=== PATIENT | male | born 1950 | race Caucasian/White ===

== ENCOUNTER 2023-04-03 15:05 | Inpatient (IN) | payer MEDICARE, MEDICAID, SELFPAY ==
--- NOTE | ~2023-04-03 | US_ITS ---
EXAMINATION: US RETROPERITONEAL COMPLETE (RENAL) CLINICAL INFORMATION: Hematuria. COMPARISON: Previous CT of the abdomen and pelvis 04/03/2023 TECHNIQUE: Real-time imaging of the kidneys and bladder. FINDINGS: RIGHT KIDNEY: 12 x 6.7 x 6.3 cm (SAG x AP x TRV). The kidney is normal in size, contour, and echogenicity. Renal cortical thickness is normal. No calculi or focal parenchymal lesions. No hydronephrosis. LEFT KIDNEY: 12 x 6 x 4.8 cm (SAG x AP x TRV). The kidney is normal in size, contour, and echogenicity. Renal cortical thickness is normal. No calculi or focal parenchymal lesions. No hydronephrosis. BLADDER: Not optimally distended. There is a Nava catheter. Bilateral ureteral jets are not demonstrated. Prevoid bladder volume is 87 mL. US/US retroperitoneal comp IMPRESSION: Normal renal ultrasound. Bladder not optimally distended and not well evaluated.
--- NOTE | ~2023-04-03 | XR_ITS ---
EXAMINATION: XR CHEST CLINICAL INFORMATION: Tachypnea, question CHF COMPARISON: 10/02/2019 TECHNIQUE: Frontal view of the chest was obtained. FINDINGS: Left-sided AICD lead tip overlies the right ventricle. Lung volumes are symmetric. No focal consolidation is seen. No evidence of pneumothorax or significant pleural effusion. Subtle interstitial edema is difficult to exclude. Cardiac size is within normal limits. Calcification is present at the aortic arch. No acute osseous findings are seen. XR/XR chest 1V IMPRESSION: Possible subtle interstitial edema. No focal consolidation.
--- NOTE | ~2023-04-03 | CT_ITS ---
EXAMINATION: CT ABDOMEN AND PELVIS WITH CONTRAST CLINICAL INFORMATION: Epigastric discomfort COMPARISON: CT scan abdomen pelvis 09/30/2019 TECHNIQUE: Multidetector volumetric images were obtained from the superior aspect of the liver through the pubic symphysis following administration 85 mL of Omnipaque 350 intravenous contrast. Sagittal and coronal reformatted images were obtained on the technologist's workstation. Oral contrast: No This CT examination was performed using dose optimization techniques as appropriate, variously including the following: *Automated exposure control *Adjustment of mA and/or kV according to patient size (this includes techniques or standardized protocols for targeted exams where dose is matched to indication/reason for exam; i.e. extremities or head) *Use of iterative reconstruction technique DLP: 893 mGy-cm FINDINGS: LUNG BASES: The visualized lung bases are unremarkable. Pacemaker leads in the heart LIVER, GALLBLADDER, AND BILIARY TREE: Pneumobilia. No focal liver lesion. Status post cholecystectomy PANCREAS: Pancreas is atrophic. No inflammation or mass. SPLEEN: Unremarkable. ADRENAL GLANDS: Unremarkable. KIDNEYS AND URETERS: Fullness of the right and left renal collecting systems and mild hydroureter of the distal ureters bilaterally. No renal or ureteral calculus. Prostate/BLADDER: TURP Defect in the prostate. No bladder mass or calculus. No inflammation the bladder wall. GASTROINTESTINAL TRACT: There are a few scattered diverticula of the colon. There is no diverticulitis. There is no bowel wall thickening /edema. There is no bowel obstruction. There is a moderate to large volume of stool in the colon. The appendix is normal . The small bowel loops are unremarkable. The stomach is normal. There is no hiatal hernia. ABDOMINAL WALL: No significant hernia is appreciated. Focal thickening with calcifications in the anterior abdominal wall bilaterally consistent with injection granulomas. LYMPH NODES: Normal. VASCULAR: Vascular calcifications throughout the abdomen and the pelvis. There is no aneurysm. OSSEOUS STRUCTURES: Degenerative spondylosis of the spine. CT/CT abdomen pelvis w IV con IMPRESSION: 1. No acute abnormality the abdomen or pelvis 2. Mild fullness of the right and left renal collecting systems and mild hydroureter of the distal ureters bilaterally. No renal or ureteral calculus. 3. Status post cholecystectomy. Pneumobilia. Fleischner guidelines were followed.
--- NOTE | ~2023-04-03 | XR_ITS ---
EXAMINATION: XR CHEST CLINICAL INFORMATION: Shortness of breath COMPARISON: Previous chest x-ray most recent 04/04/2023 TECHNIQUE: Frontal view of the chest was obtained. FINDINGS: The cardiac and mediastinal contours are stable. Left subclavian single chamber pacemaker/AICD device appears unchanged. The lungs are clear. No pleural effusion or pneumothorax. Degenerative changes of the spine and right shoulder. XR/XR chest 1V IMPRESSION: No evidence for acute disease in the chest.
[2023-04-03 15:17] VITALS: BP 130/47; PULSE 72; O2SAT 92
[2023-04-03 15:24] VITALS: BP 112/42; PULSE 68; RESP 18; TEMP 36.7; O2SAT 97
--- NOTE | 2023-04-03 15:51 | ECG_ITS ---
Test Reason : HTN Blood Pressure : / mmHG Vent. Rate : 071 BPM Atrial Rate : 071 BPM P-R Int : 234 ms QRS Dur : 092 ms QT Int : 406 ms P-R-T Axes : -19 -18 178 degrees QTc Int : 441 ms Sinus rhythm with 1st degree A-V block Septal infarct (cited on or before 30-SEP-2019) ST & T wave abnormality, consider inferolateral ischemia Abnormal ECG When compared with ECG of 01-OCT-2019 12:29, Premature atrial complexes are no longer Present T wave inversion less evident in Inferior leads T wave inversion now evident in Lateral leads Referred By: Zuri Falk Electronically Signed By:Eris Agustin
[2023-04-03 16:07] LABS: MANUAL DIFF FLAG NO
[2023-04-03 16:13] LABS: Basophils Percent Auto 0.4 % (0-2); Eosinophils Absolute Auto 0.5 X10*3/uL (0.0-0.4); Eosinophils Percent Auto 5.3 % (0-4); Hematocrit 29.9 % (42.0-52.0); Hemoglobin 9.3 g/dl (14.0-18.0); Imm Gran Abs Auto 0.04 X10*3/uL (0.00-0.03); Imm Gran Pct Auto 0.4 % (0.0-0.4); Lymphocytes Absolute Auto 1.3 X10*3/uL (1.2-4.9); Lymphocytes Percent Auto 13.6 % (20-40); Mean Corpuscular HGB Conc 31.1 g/dl (31.0-36.0); Mean Corpuscular Hemoglobin 23.4 pg (27.0-33.0); Mean Corpuscular Volume 75.3 fL (80.0-98.0); Monocytes Absolute Auto 0.6 X10*3/uL (0.1-1.2); Monocytes Percent Auto 6.5 % (2-11); Neutrophils Absolute Auto 6.9 x10*3/uL (2.0-8.3); Neutrophils Percent Auto 73.8 % (45-73); Platelet Count 267 X10*3/uL (160-400); Red Blood Count 3.97 X10*6/uL (4.60-5.80); Red Cell Distribution Width 19.1 % (11.0-16.0); White Blood Count 9.4 X10*3/uL (4.8-10.8)
[2023-04-03 16:20] LABS: Appearance Urine Clear; Color Urine Yellow; Glucose Urine UA Negative (Negative); Leukocyte Esterase Urine Trace (Negative); Nitrite Urine Negative (Negative); UMIC TRIGGER UACC YES; Urine Blood Small (1+) (Negative); Urine Ketones Negative (Negative); Urine Protein Negative (Neg-Trace)
[2023-04-03 16:21] LABS: INTERNATIONAL NORM RATIO 1.3 (0.9-1.1); Prothrombin Time 15.4 SEC (10.0-13.1)
[2023-04-03 16:25] LABS: Bacteria Urine None Seen (None Seen); Hyaline Casts Urine 0-2 /LPF (0-2); Squamous Epithelial Cell Urine 0-2 /HPF (0-2); WBC Urine 0-5 /HPF (0-5)
[2023-04-03 16:27] LABS: Alanine Aminotransferase 11 U/L (0-40); Alkaline Phosphatase 149 U/L (39-117); Anion Gap 13 (12-20); Aspartate Amino Transferase 12 U/L (5-37); Bilirubin Total 0.2 mg/dL (0.0-1.0); Blood Urea Nitrogen 35 mg/dL (9-16); Calcium 8.9 mg/dL (8.4-10.2); Carbon Dioxide 21 mmol/L (22-29); Chloride 111 mmol/L (96-108); Estimated Glomerular Filt Rate 57; Glucose Random 226 mg/dL (60-115); Potassium 4.4 mmol/L (3.3-5.1); Sodium 141 mmol/L (135-145); Total Protein 6.2 g/dL (6.5-8.0)
--- NOTE | 2023-04-03 16:36 | ED_ITS ---
HPI - GI Bleed General Chief complaint: Recheck/Abnormal Lab/Rx Stated complaint: Black tarry stool.diarrhea x3 days coming from SNF Time Seen by Provider: 04/03/23 15:51 Source: patient Mode of arrival: EMS History of Present Illness HPI Narrative: 72-year-old male who arrives via EMS from a long-term care facility with melena diarrhea since Sunday denies any associated abdominal discomfort with this and states that it has happened previously. He denies being on any iron supplementation or blood thinners. Related Data Allergies Allergy/AdvReac Type Severity Reaction Status Date / Time coconut [COCONUT] Allergy Unknown HIVES Unverified 06/03/20 14:35 pineapple [PINEAPPLE] Allergy Unknown HIVES Unverified 06/03/20 14:35 Review of Systems Review of Systems: Pertinent positives and negatives as stated in HPI PMFSH Past Medical History Source: nursing notes reviewed Social History Social History Advance Directives: No Advance Directives Information Provided: No Physical Exam Vital Signs: Vital Signs: Last Vital Signs Temp 99.8 F 04/03/23 17:58 Pulse 73 04/03/23 17:58 Resp 15 04/03/23 17:58 BP 136/40 L 04/03/23 17:58 Pulse Ox 97 04/03/23 17:58 O2 Del Method Room Air 04/03/23 17:58 BMI result Body Mass Index 0.5 VITAL SIGNS: Reviewed. GENERAL: Chronically ill, in no acute distress. HEAD: Normocephalic/atraumatic EYES: PERRLA, EOMI EARS: Ext canals without abnormality NOSE: Nares patent bilateral OROPHARYNX: no oral lesions noted, posterior pharynx clear NECK: Supple, no adenopathy LUNGS: Normal breath sounds. No adventitious sounds or accessory muscle use. SpO2<97> CARDIOVASCULAR: Regular rate and rhythm without noted murmurs, no JVD or lower extremity edema. ABDOMEN: Soft, non-tender, non-distended with bowel sounds. NILAY: No hemorrhoids noted, black stool very soft MUSCULOSKELETAL: No tenderness, deformities, or effusions noted on gross inspection. EXTREMITIES: No cyanosis, clubbing or edema. SKIN: Inspection of the skin reveals no rashes NEUROLOGIC: Alert and oriented x 4. Strength and sensation to light touch were grossly intact x 4. Medications Administered Discontinued Medications Generic Name Dose Route Start Last Admin Trade Name Akbar PRN Reason Stop Dose Admin Iohexol 85 ml 04/03/23 19:10 04/03/23 19:11 Iohexol 350 Mg/Ml 100 Ml Infus..Btl IV 04/03/23 19:11 85 ml ONCE ONE Administration Pantoprazole Sodium 80 mg 04/03/23 16:42 04/03/23 18:32 Pantoprazole Sodium 40 Mg/10 Ml Vial IVPUSH 04/03/23 16:43 80 mg ONCE ONE Administration Medical Decision Making Medical Decision Making MDM Narrative: 72-year-old male with history and clinical presentation, DDX: Painless GI bleed, upper/lower/ischemic. I reviewed all investigations and in conjunction with my clinical exam and history the melena is most likely associated with an upper GI bleed as there is a corresponding mild increase in the BUN, hemoglobin is noted to be quite a bit lower than compared of lab work (but this is from 2019) patient is however hemodynamically stable, guaiac was positive and stool was melanotic. Otherwise hematologic indices a without leukocytosis or thrombocytopenia there is a chr onic left shift. Chemistry indices are grossly within normal limits without electrolyte abnormality and no significant TIFFANIE patient is noted to have elevated glucose without evidence of DKA or HHS and remaining alkaline phosphatase/protein/albumin are chronically stable. Interventions: Protonix 80 mg 191: I discussed case with inpatient hospitalist who accepts admission. Differential Diagnosis Differential Diagnoses: The differential diagnosis associated with the presentation includes Please see the discussion above Admission/Observation Consideration of admission/observation: Escalation of care including admission/observation considered Please see the discussion above Consult Healthcare Provider Management of the patient was discussed with: Hospitalist Please see the discussion above Lab Data MDM Lab Attestation statement: I reviewed the patient's lab results. Please see the discussion above 04/03/23 16:03 04/03/23 16:03 Labs: Lab Results 04/03/23 04/03/23 04/03/23 Range/Units 14:15 14:15 16:03 WBC 9.4 (4.8-10.8) X10*3/uL RBC 3.97 L (4.60-5.80) X10*6/uL Hgb 9.3 L (14.0-18.0) g/dl Hct 29.9 L (42.0-52.0) % MCV 75.3 L (80.0-98.0) fL MCH 23.4 L (27.0-33.0) pg MCHC 31.1 (31.0-36.0) g/dl RDW 19.1 H (11.0-16.0) % Plt Count 267 (160-400) X10*3/uL MPV 10.0 (9.4-12.4) fL Immature Gran % (Auto) 0.4 (0.0-0.4) % Neut % (Auto) 73.8 H (45-73) % Lymph % (Auto) 13.6 L (20-40) % [place] % (Auto) 6.5 (2-11) % Eos % (Auto) 5.3 H (0-4) % Baso % (Auto) 0.4 (0-2) % Lymph # (Auto) 1.3 (1.2-4.9) X10*3/uL [place] # (Auto) 0.6 (0.1-1.2) X10*3/uL Eos # (Auto) 0.5 H (0.0-0.4) X10*3/uL Baso # (Auto) 0.0 (0.0-0.2) X10*3/uL Abs Immat Gran (auto) 0.04 H (0.00-0.03) X10*3/uL Absolute Neuts (auto) 6.9 (2.0-8.3) x10*3/uL Absolute Nucleated RBC 0.000 (0.0-0.012) X10*3/uL Nucleated RBC % (auto) 0.0 (0.0-0.2) /100WBC PT (10.0-13.1) SEC INR (0.9-1.1) Sodium (135-145) mmol/L Potassium (3.3-5.1) mmol/L Chloride (96-108) mmol/L Carbon Dioxide (22-29) mmol/L Anion Gap (12-20) BUN (9-16) mg/dL Creatinine (0.5-1.4) mg/dL Estim Creat Clear Calc Estimated GFR Random Glucose (60-115) mg/dL Calcium (8.4-10.2) mg/dL Total Bilirubin (0.0-1.0) mg/dL AST (5-37) U/L ALT (0-40) U/L Alkaline Phosphatase (39-117) U/L Total Protein (6.5-8.0) g/dL Albumin (3.5-5.0) g/dL Urine Color Yellow Urine Appearance Clear Urine pH 6.0 (5.0-9.0) Ur Specific [place] 1.010 (1.005-1.025) Urine Protein Negative (Neg-Trace) mg/dL Urine Glucose (UA) Negative (Negative) mg/dL Urine Ketones Negative (Negative) mg/dL Urine Blood Small (1+) H (Negative) Urine Nitrite Negative (Negative) Ur Leukocyte Esterase Trace H (Negative) Urine RBC 6-10 H (0-2) /HPF Urine WBC 0-5 (0-5) /HPF Ur Squamous Epith Cells 0-2 (0-2) /HPF Urine Bacteria None Seen (None Seen) Hyaline Casts 0-2 (0-2) /LPF Urine Creatinine 45.00 mg/dL Urine Microalbumin < 5.0 mg/L Microalb/Creat Ratio TNP Stool Occult Blood (NEGATIVE) Blood Type Antibody Screen 04/03/23 04/03/23 04/03/23 Range/Units 16:03 16:03 17:40 WBC (4.8-10.8) X10*3/uL RBC (4.60-5.80) X10*6/uL Hgb (14.0-18.0) g/dl Hct (42.0-52.0) % MCV (80.0-98.0) fL MCH (27.0-33.0) pg MCHC (31.0-36.0) g/dl RDW (11.0-16.0) % Plt Count (160-400) X10*3/uL MPV (9.4-12.4) fL Immature Gran % (Auto) (0.0-0.4) % Neut % (Auto) (45-73) % Lymph % (Auto) (20-40) % [place] % (Auto) (2-11) % Eos % (Auto) (0-4) % Baso % (Auto) (0-2) % Lymph # (Auto) (1.2-4.9) X10*3/uL [place] # (Auto) (0.1-1.2) X10*3/uL Eos # (Auto) (0.0-0.4) X10*3/uL Baso # (Auto) (0.0-0.2) X10*3/uL Abs Immat Gran (auto) (0.00-0.03) X10*3/uL Absolute Neuts (auto) (2.0-8.3) x10*3/uL Absolute Nucleated RBC (0.0-0.012) X10*3/uL Nucleated RBC % (auto) (0.0-0.2) /100WBC PT 15.4 H (10.0-13.1) SEC INR 1.3 H (0.9-1.1) Sodium 141 (135-145) mmol/L Potassium 4.4 (3.3-5.1) mmol/L Chloride 111 H (96-108) mmol/L Carbon Dioxide 21 L (22-29) mmol/L Anion Gap 13 (12-20) BUN 35 H (9-16) mg/dL Creatinine 1.25 (0.5-1.4) mg/dL Estim Creat Clear Calc 83.0 Estimated GFR 57 Random Glucose 226 H (60-115) mg/dL Calcium 8.9 (8.4-10.2) mg/dL Total Bilirubin 0.2 (0.0-1.0) mg/dL AST 12 (5-37) U/L ALT 11 (0-40) U/L Alkaline Phosphatase 149 H (39-117) U/L Total Protein 6.2 L (6.5-8.0) g/dL Albumin 3.0 L (3.5-5.0) g/dL Urine Color Urine Appearance Urine pH (5.0-9.0) Ur Specific [place] (1.005-1.025) Urine Protein (Neg-Trace) mg/dL Urine Glucose (UA) (Negative) mg/dL Urine Ketones (Negative) mg/dL Urine Blood (Negative) Urine Nitrite (Negative) Ur Leukocyte Esterase (Negative) Urine RBC (0-2) /HPF Urine WBC (0-5) /HPF Ur Squamous Epith Cells (0-2) /HPF Urine Bacteria (None Seen) Hyaline Casts (0-2) /LPF Urine Creatinine mg/dL Urine Microalbumin mg/L Microalb/Creat Ratio Stool Occult Blood (NEGATIVE) Blood Type AB Positive Antibody Screen NEGATIVE 04/03/23 Range/Units 17:41 WBC (4.8-10.8) X10*3/uL RBC (4.60-5.80) X10*6/uL Hgb (14.0-18.0) g/dl Hct (42.0-52.0) % MCV (80.0-98.0) fL MCH (27.0-33.0) pg MCHC (31.0-36.0) g/dl RDW (11.0-16.0) % Plt Count (160-400) X10*3/uL MPV (9.4-12.4) fL Immature Gran % (Auto) (0.0-0.4) % Neut % (Auto) (45-73) % Lymph % (Auto) (20-40) % [place] % (Auto) (2-11) % Eos % (Auto) (0-4) % Baso % (Auto) (0-2) % Lymph # (Auto) (1.2-4.9) X10*3/uL [place] # (Auto) (0.1-1.2) X10*3/uL Eos # (Auto) (0.0-0.4) X10*3/uL Baso # (Auto) (0.0-0.2) X10*3/uL Abs Immat Gran (auto) (0.00-0.03) X10*3/uL Absolute Neuts (auto) (2.0-8.3) x10*3/uL Absolute Nucleated RBC (0.0-0.012) X10*3/uL Nucleated RBC % (auto) (0.0-0.2) /100WBC PT (10.0-13.1) SEC INR (0.9-1.1) Sodium (135-145) mmol/L Potassium (3.3-5.1) mmol/L Chloride (96-108) mmol/L Carbon Dioxide (22-29) mmol/L Anion Gap (12-20) BUN (9-16) mg/dL Creatinine (0.5-1.4) mg/dL Estim Creat Clear Calc Estimated GFR Random Glucose (60-115) mg/dL Calcium (8.4-10.2) mg/dL Total Bilirubin (0.0-1.0) mg/dL AST (5-37) U/L ALT (0-40) U/L Alkaline Phosphatase (39-117) U/L Total Protein (6.5-8.0) g/dL Albumin (3.5-5.0) g/dL Urine Color Urine Appearance Urine pH (5.0-9.0) Ur Specific [place] (1.005-1.025) Urine Protein (Neg-Trace) mg/dL Urine Glucose (UA) (Negative) mg/dL Urine Ketones (Negative) mg/dL Urine Blood (Negative) Urine Nitrite (Negative) Ur Leukocyte Esterase (Negative) Urine RBC (0-2) /HPF Urine WBC (0-5) /HPF Ur Squamous Epith Cells (0-2) /HPF Urine Bacteria (None Seen) Hyaline Casts (0-2) /LPF Urine Creatinine mg/dL Urine Microalbumin mg/L Microalb/Creat Ratio Stool Occult Blood POSITIVE (NEGATIVE) Blood Type Antibody Screen Independent Interpretation I performed an independent interpretation of an: EKG Interpretation: Sinus rhythm, first-degree AV block at baseline, HR-71, no STEMI but there are ST abnormalities in the lateral leads at baseline, CA-234, QRS/QTC are within normal limits. Chronic Conditions Patient?s care impacted by: Hypertension Critical Care Time Critical Care Time Critical Care Time: Yes Total Critical Care Time: 30 Attestation: I personally attest to this time spent taking care of the patient. Discharge Plan Discharge Patient Disposition: Admitted As Inpatient
[2023-04-03 17:18] LABS: Microalbumin Urine < 5.0 mg/L
[2023-04-03 17:58] VITALS: BP 136/40; PULSE 73; RESP 15; TEMP 37.7; O2SAT 97
[2023-04-03 18:07] LABS: OBS Int Ctl Valid YES; OBS1 POSITIVE (NEGATIVE)
[2023-04-03] MEDS: Pantoprazole Sodium 40 MG/10 ML VIAL 80 MG IVPUSH (18:32)
[2023-04-03] MEDS: iohexoL 350 MG/ML 100 ML INFUS..BTL 85 ML IV (19:11)
--- NOTE | 2023-04-03 19:31 | PM.IMHP ---
History of Present Illness Date of Service: 04/03/23 Chief Complaint: GI bleed This is a 72-year-old male with pertinent history of congestive heart failure unspecified ejection fraction, paroxysmal atrial fibrillation on Eliquis, mood disorder, essential hypertension, mixed hyperlipidemia, coronary artery disease, insulin-dependent diabetes mellitus presents to the emergency department for evaluation of GI bleed. Patient states he has been having painless diarrhea mixed with blood that started 1 day prior to presentation. Patient states he had 4-5 episodes since yesterday. Admits similar episodes in the past but does not know the etiology. He is on antiplatelet agent and anticoagulants. Patient denies any fever, chills, abdominal pain while defaceation. No chest discomfort, palpitations, changes in urinary habits. Admits associated nausea, headache. In the emergency department, patient was found to be anemic and stool occult blood was positive Review of Systems Constitutional: Constitutional: Reports fatigue Cardiovascular: Cardiovascular: Reports no additional cardiovascular complaints Respiratory: Respiratory: Reports no additional respiratory complaints Gastrointestinal: Gastrointestinal: Reports melena and Reports nausea Genitourinary: Genitourinary: Reports no additional male genitourinary complaints Endocrine: Endocrine: Reports fatigue [facility] Medical History Chronic anticoagulation Congestive heart failure Coronary artery disease Essential hypertension Insulin dependent type 2 diabetes mellitus Mood disorder Paroxysmal atrial fibrillation Pertinent family history: Not significant due to age Social History Advance Directives: No Advance Directives Information Provided: No Meds Allergies Allergy/AdvReac Type Severity Reaction Status Date / Time coconut [COCONUT] Allergy Unknown HIVES Unverified 06/03/20 14:35 pineapple [PINEAPPLE] Allergy Unknown HIVES Unverified 06/03/20 14:35 Active Medications: Current Medications Pharmacy Consult (Consult Rx Perform Med Rec) 1 each MISCELLANE ONCE PRN PRN Reason: Consult order Physical Exam Vital Signs and Narrative: Vital Signs: Last Vital Signs Temp 99.8 F 04/03/23 17:58 Pulse 73 04/03/23 17:58 Resp 15 04/03/23 17:58 BP 136/40 L 04/03/23 17:58 Pulse Ox 97 04/03/23 17:58 O2 Del Method Room Air 04/03/23 17:58 BMI result Body Mass Index 0.5 Middle-aged male lying in bed in no distress Neck supple Regular rate and rhythm, S1-S2 heard Regular breath sounds bilaterally, no wheezing or crackles appreciated Abdomen soft nontender, no guarding, no rigidity Patient is awake, alert and oriented to self, place and person ; no focal motor deficit Results Labs 04/03/23 16:03 04/03/23 16:03 Labs: Laboratory Results - last 24 hr 04/03/23 04/03/23 04/03/23 14:15 14:15 16:03 MCV 75.3 L MCH 23.4 L MCHC 31.1 RDW 19.1 H Plt Count 267 MPV 10.0 Immature Gran % (Auto) 0.4 Neut % (Auto) 73.8 H Lymph % (Auto) 13.6 L [place] % (Auto) 6.5 Eos % (Auto) 5.3 H Baso % (Auto) 0.4 Lymph # (Auto) 1.3 [place] # (Auto) 0.6 Eos # (Auto) 0.5 H Baso # (Auto) 0.0 Abs Immat Gran (auto) 0.04 H Absolute Neuts (auto) 6.9 Absolute Nucleated RBC 0.000 Nucleated RBC % (auto) 0.0 PT INR Anion Gap Estim Creat Clear Calc Estimated GFR Random Glucose Calcium Total Bilirubin AST ALT Alkaline Phosphatase Total Protein Albumin Urine Color Yellow Urine Appearance Clear Urine pH 6.0 Ur Specific [place] 1.010 Urine Protein Negative Urine Glucose (UA) Negative Urine Ketones Negative Urine Blood Small (1+) H Urine Nitrite Negative Ur Leukocyte Esterase Trace H Urine RBC 6-10 H Urine WBC 0-5 Ur Squamous Epith Cells 0-2 Urine Bacteria None Seen Hyaline Casts 0-2 Urine Creatinine 45.00 Urine Microalbumin < 5.0 Microalb/Creat Ratio TNP Stool Occult Blood Blood Type Antibody Screen 04/03/23 04/03/23 04/03/23 16:03 16:03 17:40 MCV MCH MCHC RDW Plt Count MPV Immature Gran % (Auto) Neut % (Auto) Lymph % (Auto) [place] % (Auto) Eos % (Auto) Baso % (Auto) Lymph # (Auto) [place] # (Auto) Eos # (Auto) Baso # (Auto) Abs Immat Gran (auto) Absolute Neuts (auto) Absolute Nucleated RBC Nucleated RBC % (auto) PT 15.4 H INR 1.3 H Anion Gap 13 Estim Creat Clear Calc 83.0 Estimated GFR 57 Random Glucose 226 H Calcium 8.9 Total Bilirubin 0.2 AST 12 ALT 11 Alkaline Phosphatase 149 H Total Protein 6.2 L Albumin 3.0 L Urine Color Urine Appearance Urine pH Ur Specific [place] Urine Protein Urine Glucose (UA) Urine Ketones Urine Blood Urine Nitrite Ur Leukocyte Esterase Urine RBC Urine WBC Ur Squamous Epith Cells Urine Bacteria Hyaline Casts Urine Creatinine Urine Microalbumin Microalb/Creat Ratio Stool Occult Blood Blood Type AB Positive Antibody Screen NEGATIVE 04/03/23 17:41 MCV MCH MCHC RDW Plt Count MPV Immature Gran % (Auto) Neut % (Auto) Lymph % (Auto) [place] % (Auto) Eos % (Auto) Baso % (Auto) Lymph # (Auto) [place] # (Auto) Eos # (Auto) Baso # (Auto) Abs Immat Gran (auto) Absolute Neuts (auto) Absolute Nucleated RBC Nucleated RBC % (auto) PT INR Anion Gap Estim Creat Clear Calc Estimated GFR Random Glucose Calcium Total Bilirubin AST ALT Alkaline Phosphatase Total Protein Albumin Urine Color Urine Appearance Urine pH Ur Specific [place] Urine Protein Urine Glucose (UA) Urine Ketones Urine Blood Urine Nitrite Ur Leukocyte Esterase Urine RBC Urine WBC Ur Squamous Epith Cells Urine Bacteria Hyaline Casts Urine Creatinine Urine Microalbumin Microalb/Creat Ratio Stool Occult Blood POSITIVE Blood Type Antibody Screen Assessment and Plan (1) GI bleed: Status: Acute Plan This is a 72-year-old male with pertinent history of congestive heart failure unspecified ejection fraction, paroxysmal atrial fibrillation on Eliquis, mood disorder, essential hypertension, mixed hyperlipidemia, coronary artery disease, insulin-dependent diabetes mellitus presents to the emergency department for evaluation of GI bleed. #. Acute blood loss anemia due to acute GI bleed. Will admit patient with admeasurer. Will keep patient NPO and consulted Gastroenterology, appreciate assistance. Initiated IV Protonix. Hold Eliquis and antiplatelet agent. Close monitor H&H. #. Congestive heart failure, unspecified ejection fraction. Euvolemic at the time of admission. Hold diuretics in the setting of above #. Essential hypertension. Hold antihypertensives in the setting of GI bleed #. Paroxysmal atrial fibrillation on Eliquis. Rate controlled and patient in sinus rhythm during admission. Hold Eliquis as above #. Insulin-dependent diabetes mellitus with hyperglycemia. Initiating Accu-Cheks with sliding scale insulin every 6 hours while patient is NPO #. Mood disorder. Resume home mood stabilizers once no longer NPO Med rec pending DVT prophylaxis: Mechanical DNR. Discussed with patient at bedside NPO Admit as inpatient and will require two night minimum hospital stay for close monitoring of hemodynamic status in the setting of acute GI bleed. Specialist consult pending Time Spent With Patient Time: Total time managing care of this patient today ____ minutes. Quality Stroke Does the patient have a stroke diagnosis?: No VTE Prior VTE?: No VTE Risk Level:: Medical - moderate - high VTE Device Contraindication: N/A - Device Ordered VTE Drug Contraindication: Treatment Not Indicated
--- NOTE | 2023-04-03 19:42 | PC.NURSE ---
no apparent distress requesting food/ta[place]- pt NPO and made aware
--- NOTE | 2023-04-03 20:55 | PHA.MEDREC ---
Pharmacy Consult ? Medication Reconciliation Pharmacy has completed the medication reconciliation.List obtained from [facility]
[2023-04-03 21:03] LABS: Glucose, Whole Blood 150 mg/dL (60-115)
[2023-04-03 21:37] VITALS: BP 124/51; PULSE 72; RESP 13; TEMP 37.2; O2SAT 96
--- NOTE | 2023-04-03 23:57 | PC.NURSE ---
report given to Ileana RN, pt to yao Lin
[2023-04-04] VITALS (11 sets, daily range): BP systolic 140–184; BP diastolic 54–81; PULSE 71–92; RESP 17–28; TEMP 36.1–37.3; O2SAT 90–97; BMI 34.0
[2023-04-04] MEDS: ondansetron HCL 4 MG/2 ML VIAL IVPUSH (01:16)
[2023-04-04] MEDS: 0.9 % Sodium Chloride Flush 3 ML SYRINGE IVFLUSH ×3 (01:18→16:31)
--- NOTE | 2023-04-04 03:30 | PC.NURSE ---
Pt noted to have sizable blood clot in stool. Pt also c/o nausea and having episodes of dry heaving - zofran administered with little to no effectiveness. Tachypneic to 28. BP 184/75 T 98.3F O2 94% on RA. Wet lung sounds with audible crackles. Labs and CXR ordered. Type and screen obtained. 1 unit PRBC ordered. Continued to have large liquid bloody stools. Blood consent obtained by . 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 Care ongoing.
[2023-04-04 03:31] LABS: Glucose, Whole Blood 126 mg/dL (60-115)
[2023-04-04 04:14] LABS: INTERNATIONAL NORM RATIO 1.3 (0.9-1.1); Prothrombin Time 14.6 SEC (10.0-13.1)
[2023-04-04 04:23] LABS: Hematocrit 27.9 % (42.0-52.0); Hemoglobin 8.5 g/dl (14.0-18.0)
--- NOTE | 2023-04-04 05:33 | ECG_ITS ---
Test Reason : CP Blood Pressure : / mmHG Vent. Rate : 077 BPM Atrial Rate : 077 BPM P-R Int : 246 ms QRS Dur : 096 ms QT Int : 400 ms P-R-T Axes : 103 -16 210 degrees QTc Int : 452 ms Sinus rhythm with 1st degree A-V block Left ventricular hypertrophy with repolarization abnormality ( R in aVL ) Abnormal ECG When compared with ECG of 03-APR-2023 16:03, Criteria for Septal infarct are no longer Present Referred By: Josefina Fernando Electronically Signed By:Eris Agustin
[2023-04-04] MEDS: Pantoprazole Sodium 40 MG/10 ML VIAL IVPUSH ×2 (05:51→16:31)
[2023-04-04 07:05] LABS: MANUAL DIFF FLAG NO
[2023-04-04 07:10] LABS: Basophils Percent Auto 0.5 % (0-2); Eosinophils Absolute Auto 0.4 X10*3/uL (0.0-0.4); Eosinophils Percent Auto 5.2 % (0-4); Hematocrit 31.2 % (42.0-52.0); Hemoglobin 9.4 g/dl (14.0-18.0); Imm Gran Abs Auto 0.03 X10*3/uL (0.00-0.03); Imm Gran Pct Auto 0.4 % (0.0-0.4); Lymphocytes Absolute Auto 1.5 X10*3/uL (1.2-4.9); Lymphocytes Percent Auto 19.4 % (20-40); Mean Corpuscular HGB Conc 30.1 g/dl (31.0-36.0); Mean Corpuscular Hemoglobin 23.6 pg (27.0-33.0); Mean Corpuscular Volume 78.4 fL (80.0-98.0); Monocytes Absolute Auto 0.6 X10*3/uL (0.1-1.2); Monocytes Percent Auto 7.4 % (2-11); Neutrophils Absolute Auto 5.1 x10*3/uL (2.0-8.3); Neutrophils Percent Auto 67.1 % (45-73); Platelet Count 258 X10*3/uL (160-400); Red Blood Count 3.98 X10*6/uL (4.60-5.80); Red Cell Distribution Width 20.3 % (11.0-16.0); White Blood Count 7.6 X10*3/uL (4.8-10.8)
[2023-04-04 07:22] LABS: Anion Gap 12 (12-20); Blood Urea Nitrogen 27 mg/dL (9-16); Calcium 8.6 mg/dL (8.4-10.2); Carbon Dioxide 23 mmol/L (22-29); Chloride 115 mmol/L (96-108); Creatinine Clr Calc Pharmacy 83.1; Estimated Glomerular Filt Rate > 60; Glucose Random 132 mg/dL (60-115); Potassium 3.7 mmol/L (3.3-5.1); Sodium 146 mmol/L (135-145)
[2023-04-04 07:32] LABS: Troponin-I High Sensitivity 25.6 ng/L (<3.5-35.0)
--- NOTE | 2023-04-04 08:44 | HO.PM.IMPN ---
Subjective Subjective Date of Service: 04/04/23 Interval History: melena Physical Exam Vital Signs: Vital Signs: Last Vital Signs Temp 97 F 04/04/23 07:17 Pulse 76 04/04/23 07:17 Resp 20 04/04/23 07:17 BP 142/81 H 04/04/23 07:17 Pulse Ox 97 04/04/23 07:17 O2 Del Method Room Air 04/04/23 07:17 BMI result Body Mass Index 34.0 pallor, ill appearing, alert oriented times 3 Objective Data Active Medications Acetaminophen (Acetaminophen 325 Mg Tablet) 650 mg PO Q6H PRN PRN Reason: Pain, Mild (Pain Scale 1-3) Acetaminophen (Acetaminophen Supp 650 Mg Supp.Rect) 650 mg RI Q6H PRN PRN Reason: Pain, Mild (Pain Scale 1-3) Dextrose (Dextrose 50 % 25 Gm/50 Ml Syringe) 25 gm IVPUSH Q15M PRN; Protocol PRN Reason: per Hypoglycemia Standing Ord. Glucose (Glucose Gel 15 Gm Gel..Gram.) 15 gm PO Q15M PRN; Protocol PRN Reason: per Hypoglycemia Standing Ord. Insulin Human Lispro (Insulin Lispro 100 Unit/Ml 3 Ml Vial) 0 unit SUBCUT Q6H [facility]; Protocol Last Admin: 04/04/23 05:52 Dose: Not Given Documented By: MARCO Non-Admin Reason: No Insulin Coverage Melatonin (Melatonin 3 Mg Tablet) 6 mg PO BEDTIME PRN PRN Reason: Insomnia Ondansetron HCl (Ondansetron Hcl 4 Mg/2 Ml Vial) 4 mg IVPUSH Q8H PRN PRN Reason: Nausea and Vomiting Last Admin: 04/04/23 01:16 Dose: 4 mg Documented By: MARCO Pantoprazole Sodium (Pantoprazole Sodium 40 Mg/10 Ml Vial) 40 mg IVPUSH BID@0630,1630 [facility] Last Admin: 04/04/23 05:51 Dose: 40 mg Documented By: MARCO Pharmacy Consult (Consult Rx Perform Med Rec) 1 each MISCELLANE ONCE PRN PRN Reason: Consult order Sodium Chloride (0.9 % Sodium Chloride Flush 3 Ml Syringe) 3 ml IVFLUSH QSHIFT [facility] Last Admin: 04/04/23 08:00 Dose: 3 ml Documented By: FOGARTB Labs 04/04/23 06:53 04/04/23 06:53 Labs: Laboratory Results - last 24 hr 04/03/23 04/03/23 04/03/23 14:15 14:15 16:03 MCV 75.3 L MCH 23.4 L MCHC 31.1 RDW 19.1 H Plt Count 267 MPV 10.0 Immature Gran % (Auto) 0.4 Neut % (Auto) 73.8 H Lymph % (Auto) 13.6 L [place] % (Auto) 6.5 Eos % (Auto) 5.3 H Baso % (Auto) 0.4 Lymph # (Auto) 1.3 [place] # (Auto) 0.6 Eos # (Auto) 0.5 H Baso # (Auto) 0.0 Abs Immat Gran (auto) 0.04 H Absolute Neuts (auto) 6.9 Absolute Nucleated RBC 0.000 Nucleated RBC % (auto) 0.0 PT INR Anion Gap Estim Creat Clear Calc Estimated GFR POC Glucose Random Glucose Calcium Total Bilirubin AST ALT Alkaline Phosphatase Troponin I High Sens Total Protein Albumin Urine Color Yellow Urine Appearance Clear Urine pH 6.0 Ur Specific [place] 1.010 Urine Protein Negative Urine Glucose (UA) Negative Urine Ketones Negative Urine Blood Small (1+) H Urine Nitrite Negative Ur Leukocyte Esterase Trace H Urine RBC 6-10 H Urine WBC 0-5 Ur Squamous Epith Cells 0-2 Urine Bacteria None Seen Hyaline Casts 0-2 Urine Creatinine 45.00 Urine Microalbumin < 5.0 Microalb/Creat Ratio TNP Stool Occult Blood Blood Type Antibody Screen Crossmatch 04/03/23 04/03/23 04/03/23 16:03 16:03 17:40 MCV MCH MCHC RDW Plt Count MPV Immature Gran % (Auto) Neut % (Auto) Lymph % (Auto) [place] % (Auto) Eos % (Auto) Baso % (Auto) Lymph # (Auto) [place] # (Auto) Eos # (Auto) Baso # (Auto) Abs Immat Gran (auto) Absolute Neuts (auto) Absolute Nucleated RBC Nucleated RBC % (auto) PT 15.4 H INR 1.3 H Anion Gap 13 Estim Creat Clear Calc 83.0 Estimated GFR 57 POC Glucose Random Glucose 226 H Calcium 8.9 Total Bilirubin 0.2 AST 12 ALT 11 Alkaline Phosphatase 149 H Troponin I High Sens Total Protein 6.2 L Albumin 3.0 L Urine Color Urine Appearance Urine pH Ur Specific [place] Urine Protein Urine Glucose (UA) Urine Ketones Urine Blood Urine Nitrite Ur Leukocyte Esterase Urine RBC Urine WBC Ur Squamous Epith Cells Urine Bacteria Hyaline Casts Urine Creatinine Urine Microalbumin Microalb/Creat Ratio Stool Occult Blood Blood Type AB Positive Antibody Screen NEGATIVE Crossmatch See Detail 04/03/23 04/03/23 04/04/23 17:41 21:00 02:55 MCV MCH MCHC RDW Plt Count MPV Immature Gran % (Auto) Neut % (Auto) Lymph % (Auto) [place] % (Auto) Eos % (Auto) Baso % (Auto) Lymph # (Auto) [place] # (Auto) Eos # (Auto) Baso # (Auto) Abs Immat Gran (auto) Absolute Neuts (auto) Absolute Nucleated RBC Nucleated RBC % (auto) PT INR Anion Gap Estim Creat Clear Calc Estimated GFR POC Glucose 150 H 126 H Random Glucose Calcium Total Bilirubin AST ALT Alkaline Phosphatase Troponin I High Sens Total Protein Albumin Urine Color Urine Appearance Urine pH Ur Specific [place] Urine Protein Urine Glucose (UA) Urine Ketones Urine Blood Urine Nitrite Ur Leukocyte Esterase Urine RBC Urine WBC Ur Squamous Epith Cells Urine Bacteria Hyaline Casts Urine Creatinine Urine Microalbumin Microalb/Creat Ratio Stool Occult Blood POSITIVE Blood Type Antibody Screen Crossmatch 04/04/23 04/04/23 04/04/23 03:56 06:53 06:53 MCV 78.4 L MCH 23.6 L MCHC 30.1 L RDW 20.3 H Plt Count 258 MPV 10.0 Immature Gran % (Auto) 0.4 Neut % (Auto) 67.1 Lymph % (Auto) 19.4 L [place] % (Auto) 7.4 Eos % (Auto) 5.2 H Baso % (Auto) 0.5 Lymph # (Auto) 1.5 [place] # (Auto) 0.6 Eos # (Auto) 0.4 Baso # (Auto) 0.0 Abs Immat Gran (auto) 0.03 Absolute Neuts (auto) 5.1 Absolute Nucleated RBC 0.000 Nucleated RBC % (auto) 0.0 PT 14.6 H INR 1.3 H Anion Gap 12 Estim Creat Clear Calc 83.1 Estimated GFR > 60 POC Glucose Random Glucose 132 H Calcium 8.6 Total Bilirubin AST ALT Alkaline Phosphatase Troponin I High Sens Total Protein Albumin Urine Color Urine Appearance Urine pH Ur Specific [place] Urine Protein Urine Glucose (UA) Urine Ketones Urine Blood Urine Nitrite Ur Leukocyte Esterase Urine RBC Urine WBC Ur Squamous Epith Cells Urine Bacteria Hyaline Casts Urine Creatinine Urine Microalbumin Microalb/Creat Ratio Stool Occult Blood Blood Type Antibody Screen Crossmatch 04/04/23 06:53 MCV MCH MCHC RDW Plt Count MPV Immature Gran % (Auto) Neut % (Auto) Lymph % (Auto) [place] % (Auto) Eos % (Auto) Baso % (Auto) Lymph # (Auto) [place] # (Auto) Eos # (Auto) Baso # (Auto) Abs Immat Gran (auto) Absolute Neuts (auto) Absolute Nucleated RBC Nucleated RBC % (auto) PT INR Anion Gap Estim Creat Clear Calc Estimated GFR POC Glucose Random Glucose Calcium Total Bilirubin AST ALT Alkaline Phosphatase Troponin I High Sens 25.6 Total Protein Albumin Urine Color Urine Appearance Urine pH Ur Specific [place] Urine Protein Urine Glucose (UA) Urine Ketones Urine Blood Urine Nitrite Ur Leukocyte Esterase Urine RBC Urine WBC Ur Squamous Epith Cells Urine Bacteria Hyaline Casts Urine Creatinine Urine Microalbumin Microalb/Creat Ratio Stool Occult Blood Blood Type Antibody Screen Crossmatch Assessment and Plan (1) Chronic systolic CHF (congestive heart failure): Status: Acute Plan 72M PMH chronic systolic chf, CAD, paroxysmal afib on eliquis, mood disorder, htn, hld, DM presented with melena acute blood loss anemia due to melena iv ppi, monitor cbc, gi eval holding plavix, eliquis chronic systolic chf metoprolol, monitor for volume overload, will hold diuretics while having melena htn metoprolol paroxysmal afib metoprolol holding eliquis cad holding eliquis, plavix DM insulin dvt prophylaxis - mechanical due to gi bleed DNR reason for continued hospitalization:active bleed Time Spent With Patient Time: Total time managing care of this patient today ____ minutes. Quality Stroke Does the patient have a stroke diagnosis?: No VTE Prior VTE?: No VTE Risk Level:: Medical - moderate - high VTE Device Contraindication: N/A - Device Ordered VTE Drug Contraindication: Treatment Not Indicated
--- NOTE | 2023-04-04 08:49 | PM.GICN ---
History of Present Illness Data of Consult Service Date: 04/04/23 Requesting physician: Edward Fernando Primary Care Provider: Remi Corbett MD [facility] Reason for consult: GI Bleeding 72 YM with congestive heart failure unspecified ejection fraction, paroxysmal atrial fibrillation on Eliquis, mood disorder, status post CVA (rt MCA)essential hypertension, mixed hyperlipidemia, coronary artery disease, insulin-dependent diabetes mellitus brought to [facility] via EMS from a long-term care facility?on 04/03/23 for evaluation of GI bleed.? Patient complained of having painless diarrhea mixed with blood starting the day before. He noted 4-5 episodes over a 24 hr period.? Pt gives a history of intermittent rectal bleeding which he attributes to hemorrhoids.? He complains of chronic diarrhea with fecal incontinence since he had a cholecystectomy several years ago. He is on antiplatelet agent and anticoagulants and admits to taking Ibuprofen 2-3 times a week.? Patient complained of nausea and BECK and denied fever, chills, abdominal pain, chest discomfort, palpitations, changes in urinary habits.? Patient admits to taking Prilosec for GERD and heartburn or dysphagia. He admits to wt loss from 360 to 222 lbs over a year (after moving to a LTCF and changing his diet) Patient has COPD and gives a hx of 17 heart attacks since 1991 status post stents and on anti-coagulation > 10 yrs Pt admites to smoking x 60 yrs and quitted 5-10 yrs ago. He drinks ETOH occasionally, was a heavy smoker of Marijuana and stopped 1 year ago. Pt is and retired, has 2 children and a 28 yr old GD. Patient reports his brother of colon cancer in his mid to late 70's. His of colon cancer at age 64 yrs. In the emergency department, patient was found to be anemic and stool occult blood was positive Pt was started on IV PPI and admitted for further management. Nursing staff reports 2-3 black BMs today. Labs showed H&H of 9.3 & 29.9 in the ER, Repeat H&H was 8.5 & 27.9 this morning. Pt was transfused 1 U PRBC today and repeat H&H was 9.4 & 31.2 04/03/[address] SCAN SHOWED: 1. No acute abnormality the abdomen or pelvis 2. Mild fullness of the right and left renal collecting systems and mild hydroureter of the distal ureters bilaterally. No renal or ureteral calculus. 3. Status post cholecystectomy. Pneumobilia. ? PAST GI HISTORY BY REVIEW OF MEDICAL RECORDS: Pt reports past hx of bleeding ulcers. Pt reports having multiple colonoscopies in the past - [place] colon [place] 5-6 [place] [facility] [place] Review of Systems Constitutional: Constitutional: Reports fatigue Cardiovascular: Cardiovascular: Reports no additional cardiovascular complaints Respiratory: Respiratory: Reports no additional respiratory complaints and Reports other (has COPD) Gastrointestinal: Gastrointestinal: Reports melena and Reports nausea Genitourinary: Genitourinary: Reports no additional male genitourinary complaints Endocrine: Endocrine: Reports fatigue PMF Past Medical History Medical History Chronic systolic CHF (congestive heart failure) Insulin dependent type 2 diabetes mellitus Mood disorder Essential hypertension Congestive heart failure Paroxysmal atrial fibrillation Coronary artery disease Social History Social History Household Members: Other Housing: Assisted Living Facility Housing Other:: [facility] per pt report xlast 3 years Patient Tobacco Use Status: Former Tobacco user Quit Date: 2018 Tobacco use type: Cigarette Years Smoked: 53 Second Hand Smoke Exposure: No Substance Use Type: Marijuana Advance Directives Date on File: 04/11/23 service: No Meds Allergies Allergy/AdvReac Type Severity Reaction Status Date / Time coconut [COCONUT] Allergy Unknown HIVES Verified 06/08/23 05:50 pineapple [PINEAPPLE] Allergy Unknown HIVES Verified 06/08/23 05:50 Active Medications: Current Medications Acetaminophen (Acetaminophen 325 Mg Tablet) 650 mg PO Q6H PRN PRN Reason: Pain, Mild (Pain Scale 1-3) Acetaminophen (Acetaminophen Supp 650 Mg Supp.Rect) 650 mg MA Q6H PRN PRN Reason: Pain, Mild (Pain Scale 1-3) Dextrose (Dextrose 50 % 25 Gm/50 Ml Syringe) 25 gm IVPUSH Q15M PRN; Protocol PRN Reason: per Hypoglycemia Standing Ord. Glucose (Glucose Gel 15 Gm Gel..Gram.) 15 gm PO Q15M PRN; Protocol PRN Reason: per Hypoglycemia Standing Ord. Insulin Human Lispro (Insulin Lispro 100 Unit/Ml 3 Ml Vial) 0 unit SUBCUT Q6H [facility]; Protocol Last Admin: 04/04/23 05:52 Dose: Not Given Melatonin (Melatonin 3 Mg Tablet) 6 mg PO BEDTIME PRN PRN Reason: Insomnia Metoprolol Tartrate (Metoprolol Tartrate 25 Mg Tablet) 75 mg PO BID [facility]; Protocol Ondansetron HCl (Ondansetron Hcl 4 Mg/2 Ml Vial) 4 mg IVPUSH Q8H PRN PRN Reason: Nausea and Vomiting Last Admin: 04/04/23 01:16 Dose: 4 mg Pantoprazole Sodium (Pantoprazole Sodium 40 Mg/10 Ml Vial) 40 mg IVPUSH BID@0630,1630 [facility] Last Admin: 04/04/23 05:51 Dose: 40 mg Pharmacy Consult (Consult Rx Perform Med Rec) 1 each MISCELLANE ONCE PRN PRN Reason: Consult order Sodium Chloride (0.9 % Sodium Chloride Flush 3 Ml Syringe) 3 ml IVFLUSH QSHIFT [facility] Last Admin: 04/04/23 08:00 Dose: 3 ml Tamsulosin HCl (Tamsulosin Hcl 0.4 Mg Capsule) 0.4 mg PO BEDTIME [facility] Home Medications Medication Instructions Recorded Confirmed Last Taken Type acetaminophen 325 mg tablet 650 mg PO Q4H PRN PAIN/FEVER 04/03/23 06/07/23 Unknown History acetaminophen 650 mg rectal 650 mg MA Q4H PRN PAIN/FEVER 04/03/23 06/07/23 Unknown History suppository albuterol sulfate 90 mcg/actuation 2 puff inhalation Q6H PRN 04/03/23 06/07/23 Unknown History aerosol inhaler Shortness Of Breath aluminum-mag hydroxide-simethicone 20 ml PO Q6H PRN UPSET STOMACH 04/03/23 06/07/23 Unknown History 400 mg-400 mg-40 mg/5 mL oral susp (Maalox Maximum Strength) amitriptyline 25 mg tablet 75 mg PO BEDTIME 04/03/23 06/07/23 Unknown History ammonium lactate 12 % topical cream 1 appl topical BID 04/03/23 06/07/23 Unknown History ascorbic acid (vitamin C) 500 mg 500 mg PO BID 04/03/23 06/07/23 Unknown History tablet atorvastatin 80 mg tablet 80 mg PO BEDTIME 04/03/23 06/07/23 Unknown History bisacodyl 10 mg rectal suppository 10 mg MA DAILY PRN Constipation 04/03/23 06/07/23 Unknown History bupropion HCl 150 mg tablet,12 hr 150 mg PO BID 04/03/23 06/07/23 Unknown History sustained-release cholecalciferol (vitamin D3) 1,250 1,250 mcg PO QMONTH 04/03/23 06/07/23 Unknown History mcg (50,000 unit) capsule cholestyramine (with sugar) 4 gram 1 ea PO BID 04/03/23 06/07/23 Unknown History oral powder cyanocobalamin (vitamin B-12) 500 1,000 mcg PO DAILY 04/03/23 06/07/23 Unknown History mcg tablet dapagliflozin propanediol 10 mg 10 mg PO DAILY 04/03/23 06/07/23 Unknown History tablet (Farxiga) dicyclomine 20 mg tablet 40 mg PO QID 04/03/23 06/07/23 Unknown History glycopyrrolate 9 mcg-formoterol 2 puff inhalation BID 04/03/23 06/07/23 Unknown History 4.8 mcg HFA aerosol inhaler (Bevespi Aerosphere) insulin glargine 100 unit/mL 20 unit subcut DAILY 04/03/23 06/07/23 Unknown History subcutaneous solution insulin lispro 100 unit/mL See Protocol subcut TIDAC 04/03/23 06/07/23 Unknown History subcutaneous cartridge (Humalog U-100 Insulin) isosorbide mononitrate 60 mg 60 mg PO DAILY 04/03/23 06/07/23 Unknown History tablet,extended release 24 hr loperamide 2 mg tablet (Imodium 2 mg PO SUMOTUTHFR Diarrhea 04/03/23 06/07/23 Unknown History A-D) magnesium hydroxide 400 mg/5 mL 30 ml PO DAILY PRN Constipation 04/03/23 06/07/23 Unknown History oral suspension (Milk of Magnesia) melatonin 3 mg tablet 6 mg PO BEDTIME 04/03/23 06/07/23 Unknown History methyl salicylate-menthol topical 1 appl topical BID PRN Pain 04/03/23 06/07/23 Unknown History cream nitroglycerin 0.4 mg sublingual 0.4 mg sublingual Q5M PRN Chest 04/03/23 06/07/23 Unknown History tablet Pain ondansetron HCl 4 mg tablet 4 mg PO Q6H PRN Nausea 04/03/23 06/07/23 Unknown History pantoprazole 40 mg tablet,delayed 40 mg PO DAILY@0630 04/03/23 06/07/23 Unknown History release sodium phosphates 19 gram-7 118 ml MA DAILY PRN Constipation 04/03/23 06/07/23 Unknown History gram/118 mL enema (Fleet Enema) tamsulosin 0.4 mg capsule 0.4 mg PO BEDTIME 04/03/23 06/07/23 Unknown History clopidogrel 75 mg tablet 75 mg PO DAILY 06/07/23 06/07/23 Unknown History famotidine 20 mg tablet 20 mg PO DAILY 06/07/23 06/07/23 Unknown History loperamide 2 mg tablet (Imodium 2 mg PO Q6H PRN Loose Stool 06/07/23 06/07/23 Unknown History A-D) loperamide 2 mg tablet (Imodium 4 mg PO WESA 06/07/23 06/07/23 Unknown History A-D) miconazole nitrate 2 % topical 1 appl topical BID 06/07/23 06/07/23 Unknown History cream (Micatin) oxycodone 10 mg tablet 10 mg PO Q3H PRN Pain (Scale Score 06/07/23 06/07/23 Unknown History 7-10) oxycodone 5 mg tablet 5 mg PO Q3H PRN Pain (Scale Score 06/07/23 06/07/23 Unknown History 4-6) potassium chloride 20 mEq 40 meq PO DAILY 06/07/23 06/07/23 Unknown History tablet,extended release Physical Exam Vital Signs: Vital Signs: Last Vital Signs Temp 97 F 04/04/23 07:17 Pulse 76 04/04/23 07:17 Resp 20 04/04/23 07:17 BP 142/81 H 04/04/23 07:17 Pulse Ox 97 04/04/23 07:17 O2 Del Method Room Air 04/04/23 07:17 BMI result Body Mass Index 34.0 Const: General: no acute distress and alert Nutritional Appearance: obese Orientation/consciousness: patient oriented x3 Limitations: physical limitations HEENT: Head: Yes normal to inspection Ears: hearing grossly normal bilaterally Mouth: Normal oral and palatal mucosa present Teeth and gingiva: edentulous Eyes: Sclerae: sclerae normal Pupils: Equal, round and reactive pupils present Neck: Neck: Yes normal visual inspection Chest: Chest palpation & inspection: normal inspection of the chest Resp: Effort & Inspection: normal respiratory effort Auscultation: wheezes (coarse breath sounds with scattered bilateral wheezing) Cardio: Palpation: normal PMI Rhythm: other (Irregularly irregular) Heart sounds: S1 normal heart sound present, S2 normal heart sound present and no murmurs GI: Inspection: Yes scar (RUQ scar of past cholecystectomy) Palpation (GI): Soft to palpation, nontender and No hepatosplenomegaly present Auscultation: normal bowel sounds Rectal Exam - Male: Yes deferred Skin: General skin exam: no rashes or lesions noted Neuro: General: patient oriented x3, gait normal and moves all extremities Cranial nerves: Yes Equal, round and reactive pupils present Extrem: General: Yes pedal edema (changes of stasis dermatitis with trace pedal edema) Psych: Appearance: grossly normal Mental Status: mental status grossly normal Results Labs 04/10/23 06:48 04/10/23 06:48 Labs: Short CBC 04/03/23 04/04/23 04/04/23 Range/Units 16:03 04:18 06:53 WBC 9.4 7.6 (4.8-10.8) X10*3/uL Hgb 9.3 L 8.5 L 9.4 L (14.0-18.0) g/dl Hct 29.9 L 27.9 L 31.2 L (42.0-52.0) % Plt Count 267 258 (160-400) X10*3/uL BMP 04/03/23 04/04/23 16:03 06:53 Sodium 141 146 H Potassium 4.4 3.7 Chloride 111 H 115 H Carbon Dioxide 21 L 23 BUN 35 H 27 H Creatinine 1.25 1.00 Calcium 8.9 8.6 Liver Function 04/03/23 Range/Units 16:03 Total Bilirubin 0.2 (0.0-1.0) mg/dL AST 12 (5-37) U/L ALT 11 (0-40) U/L Alkaline Phosphatase 149 H (39-117) U/L Albumin 3.0 L (3.5-5.0) g/dL Urine 04/03/23 Range/Units 14:15 Urine Color Yellow Urine Appearance Clear Urine pH 6.0 (5.0-9.0) Ur Specific [place] 1.010 (1.005-1.025) Urine Protein Negative (Neg-Trace) mg/dL Urine Glucose (UA) Negative (Negative) mg/dL Assessment and Plan (1) GI bleed: Status: Resolved Plan 72 YM with congestive heart failure unspecified ejection fraction, paroxysmal atrial fibrillation on Eliquis, mood disorder, status post CVA (rt MCA), essential hypertension, mixed hyperlipidemia, coronary artery disease, insulin-dependent diabetes mellitus admitted to [facility] on 04/03/23 for evaluation of GI bleed.? Pt gives a history of intermittent rectal bleeding which he attributes to hemorrhoids.? He complains of chronic diarrhea with fecal incontinence since he had a cholecystectomy several years ago. He is on antiplatelet agent and anticoagulants and admits to taking Ibuprofen 2-3 times a week.? Patient has COPD and gives a hx of 17 heart attacks since 1991 status post stents and on anti-coagulation > 10 yrs Pt admites to smoking x 60 yrs and quitted 5-10 yrs ago. In the emergency department, patient was found to be anemic and stool occult blood was positive Pt was started on IV PPI and admitted for further management. Nursing staff reports 2-3 black BMs today. Labs showed H&H of 9.3 & 29.9 in the ER, Repeat H&H was 8.5 & 27.9 this morning. Pt was transfused 1 U PRBC today and repeat H&H was 9.4 & 31.2 RECOMMENDATIONS: 1. Monitor CBC twice daily 2. Agree with IV PPI. 3. Pt needs further evaluation with EGD and Colonoscopy. He has CAD with coronary stents and COPD and needs to be evaluated by Cardiology and Pulmonary services for clearance for anesthesia Addendum: 04/05/23 ECHOCARDIOGRAM SHOWED: Normal left ventricular cavity size.? The left ventricular ? ? systolic function is moderate to severely decreased.? The? visually estimated ejection fraction is between 25-30%.? - Normal right ventricular cavity size.? There is mildly ? decreased right ventricular systolic function.? There is an ICD? wire seen in the right ventricle.? - There is moderate calcification of the aortic valve.? The peak aortic velocity is 2.89 m/s with a calculated peak gradient of 33 mmHg.? The mean gradient is 17 mmHg.? The aortic valve area is ? 0.72 cm2.? There is no aortic valve regurgitation.? Moderate to? severe . The noncoronary cusp is still mobile and overall? ? ? appears to be more moderate based on gradients? Per cardiology pt is intermediate to high risk for anesthesia Pt scheduled for an EGD and a flex sig on 04/06/23 Pt was re-evaluated by cardiology and felt to be very high periop risk due to severe and heart disease with advice to transfer to tertiary facility for these procedures if needed. Time Spent With Patient Time: Total time managing care of this patient today ____ minutes. Procedures Date of Service Date of Service: 06/27/23
--- NOTE | 2023-04-04 09:11 | MHC.CM.PN ---
IMM 04/04. Pt admitted with dx GI bleed. Pt lives at [facility], uses a walker and wheelchair. D/C plan to return to [facility] when medically cleared. Pt states his son Eddie is his HCP but does not have a copy. PCP: Remi Mims vax: x 3
--- NOTE | 2023-04-04 09:15 | MHC.CM.PN ---
Addendum entered by Merlene Mcclure 04/04/23 11:13: Pts son/HCP Eddie [phone], was contacted and verified that the pt was living at [facility], and he is a bed hold there. Original Note: IMM 04/04. Pt admitted with dx GI bleed. Pt lives at [facility], uses a walker and wheelchair. D/C plan to return to [facility] when medically cleared. Transport via [facility]. Pt states his son Eddie is his HCP but does not have a copy. PCP: Remi Mims vax: x [phone]
[2023-04-04 10:19] LABS: Glucose, Whole Blood 115 mg/dL (60-115)
[2023-04-04] MEDS: Metoprolol Tartrate 25 MG TABLET 75 MG PO ×2 (11:21→21:13)
--- NOTE | 2023-04-04 15:31 | P.CONCA_ITS ---
History of Present Illness History of Present Illness Date of Service: 04/04/23 Requesting physician: Abdias Vargas Chief complaint: GI Bleed, preop Narrative: [age] gentleman who we have been asked to risk stratify for endoscopy. He is presenting with bloody diarrhea and will need colonoscopy. He is short of breath right now but is saying that this is his baseline. His high sensitive troponin levels are 25.6. Chest x-ray showing interstitial edema. Hemoglobin 9.3, 8.5 and 9.4. His MCV is 78.4. He was on apixaban and Plavix which are currently held. He is denying any chest discomfort currently. Blood pressure is elevated. He is saying he has history of hemorrhoids were previously did not have any significant bleeding. He has no records in our system was followed up at [facility] previously. He has history of coronary disease bare metal stent to LAD in 2016, ventricular tachycardia with cardiac arrest, heart failure with reduced ejection fraction of 20 25% status post ICD, diabetes, hypertension, hyperlipidemia and COPD. Last echocardiogram was in 2015 when EF was 30% with anterior and apical fuller severe hypokinetic to akinetic. It appears there has not been any further echocardiography at least in [facility] system since then. Last cardiac catheterization was in June [address] Whiteside when he presented with NSTEMI and had severe om 1 stenosis as culprit which was treated with drug- eluting stent hortensia 2.5 x 38 mm. He had moderate RCA and LAD disease at that time. [facility] Past Medical History Medical History (Updated 04/04/23 @ 07:18 by Abdias Vargas MD) Chronic systolic CHF (congestive heart failure) Congestive heart failure Coronary artery disease Essential hypertension Insulin dependent type 2 diabetes mellitus Mood disorder Paroxysmal atrial fibrillation Social History Social History Housing: [facility] Patient Tobacco Use Status: Tobacco use Unknown service: Yes Meds Allergies Allergy/AdvReac Type Severity Reaction Status Date / Time coconut [COCONUT] Allergy Unknown HIVES Unverified 06/03/20 14:35 pineapple [PINEAPPLE] Allergy Unknown HIVES Unverified 06/03/20 14:35 Active Medications: Current Medications Acetaminophen (Acetaminophen 325 Mg Tablet) 650 mg PO Q6H PRN PRN Reason: Pain, Mild (Pain Scale 1-3) Acetaminophen (Acetaminophen Supp 650 Mg Supp.Rect) 650 mg AZ Q6H PRN PRN Reason: Pain, Mild (Pain Scale 1-3) Dextrose (Dextrose 50 % 25 Gm/50 Ml Syringe) 25 gm IVPUSH Q15M PRN; Protocol PRN Reason: per Hypoglycemia Standing Ord. Furosemide (Furosemide 40 Mg/4 Ml Vial) 40 mg IVPUSH ONCE ONE; Protocol Stop: 04/04/23 15:31 Glucose (Glucose Gel 15 Gm Gel..Gram.) 15 gm PO Q15M PRN; Protocol PRN Reason: per Hypoglycemia Standing Ord. Insulin Human Lispro (Insulin Lispro 100 Unit/Ml 3 Ml Vial) 0 unit SUBCUT Q6H [facility]; Protocol Last Admin: 04/04/23 10:55 Dose: Not Given Melatonin (Melatonin 3 Mg Tablet) 6 mg PO BEDTIME PRN PRN Reason: Insomnia Metoprolol Tartrate (Metoprolol Tartrate 25 Mg Tablet) 75 mg PO BID [facility]; Protocol Last Admin: 04/04/23 11:21 Dose: 75 mg Ondansetron HCl (Ondansetron Hcl 4 Mg/2 Ml Vial) 4 mg IVPUSH Q8H PRN PRN Reason: Nausea and Vomiting Last Admin: 04/04/23 01:16 Dose: 4 mg Pantoprazole Sodium (Pantoprazole Sodium 40 Mg/10 Ml Vial) 40 mg IVPUSH BID@0630,1630 [facility] Last Admin: 04/04/23 05:51 Dose: 40 mg Pharmacy Consult (Consult Rx Perform Med Rec) 1 each MISCELLANE ONCE PRN PRN Reason: Consult order Polyethylene Glycol/Electrolytes (Peg 3350/Na Sulf,Bicarb,Cl/Kcl 4,000 Ml Soln.Recon) 4,000 ml PO ONCE ONE Stop: 04/04/23 16:01 Sodium Chloride (0.9 % Sodium Chloride Flush 3 Ml Syringe) 3 ml IVFLUSH QSHIFT [facility] Last Admin: 04/04/23 08:00 Dose: 3 ml Tamsulosin HCl (Tamsulosin Hcl 0.4 Mg Capsule) 0.4 mg PO BEDTIME [facility] Home Medications Medication Instructions Recorded Confirmed Last Taken Type acetaminophen 325 mg tablet 650 mg PO Q4H PRN PAIN/FEVER 04/03/23 04/03/23 Unknown History acetaminophen 650 mg rectal 650 mg AZ Q4H PRN PAIN/FEVER 04/03/23 04/03/23 Unknown History suppository albuterol sulfate 90 mcg/actuation 2 puff inhalation Q6H PRN 04/03/23 04/03/23 Unknown History aerosol inhaler Shortness Of Breath aluminum-mag hydroxide-simethicone 20 ml PO Q6H PRN UPSET STOMACH 04/03/23 04/03/23 Unknown History 400 mg-400 mg-40 mg/5 mL oral susp (Maalox Maximum Strength) amitriptyline 25 mg tablet 75 mg PO BEDTIME 04/03/23 04/03/23 Unknown History ammonium lactate 12 % topical cream 1 appl topical BID 04/03/23 04/03/23 Unknown History apixaban 5 mg tablet (Eliquis) 5 mg PO BID 04/03/23 04/03/23 Unknown History ascorbic acid (vitamin C) 500 mg 500 mg PO BID 04/03/23 04/03/23 Unknown History tablet atorvastatin 80 mg tablet 80 mg PO BEDTIME 04/03/23 04/03/23 Unknown History bisacodyl 10 mg rectal suppository 10 mg AZ DAILY PRN Constipation 04/03/23 04/03/23 Unknown History bumetanide 1 mg tablet 5 mg PO BID 04/03/23 04/03/23 Unknown History bupropion HCl 150 mg tablet,12 hr 150 mg PO BID 04/03/23 04/03/23 Unknown History sustained-release cholecalciferol (vitamin D3) 1,250 1,250 mcg PO QMONTH 04/03/23 04/03/23 Unknown History mcg (50,000 unit) capsule cholestyramine (with sugar) 4 gram 1 ea PO BID 04/03/23 04/03/23 Unknown History oral powder clopidogrel 75 mg tablet 75 mg PO DAILY 04/03/23 04/03/23 Unknown History cyanocobalamin (vitamin B-12) 500 1,000 mcg PO DAILY 04/03/23 04/03/23 Unknown History mcg tablet dapagliflozin propanediol 10 mg 10 mg PO DAILY 04/03/23 04/03/23 Unknown History tablet (Farxiga) dicyclomine 20 mg tablet 40 mg PO QID 04/03/23 04/03/23 Unknown History glycopyrrolate 9 mcg-formoterol 2 puff inhalation BID 04/03/23 04/03/23 Unknown History 4.8 mcg HFA aerosol inhaler (Bevespi Aerosphere) insulin glargine 100 unit/mL 20 unit subcut DAILY 04/03/23 04/03/23 Unknown History subcutaneous solution insulin glargine 100 unit/mL 90 unit subcut BEDTIME 04/03/23 04/03/23 Unknown History subcutaneous solution insulin lispro 100 unit/mL See Protocol subcut TIDAC 04/03/23 04/03/23 Unknown History subcutaneous cartridge (Humalog U-100 Insulin) isosorbide mononitrate 60 mg 60 mg PO DAILY 04/03/23 04/03/23 Unknown History tablet,extended release 24 hr loperamide 2 mg tablet (Imodium 2 mg PO Q4H PRN Diarrhea 04/03/23 04/03/23 Unknown History A-D) magnesium hydroxide 400 mg/5 mL 30 ml PO DAILY PRN Constipation 04/03/23 04/03/23 Unknown History oral suspension (Milk of Magnesia) melatonin 3 mg tablet 6 mg PO BEDTIME 04/03/23 04/03/23 Unknown History methyl salicylate-menthol topical 1 appl topical BID PRN Pain 04/03/23 04/03/23 Unknown History cream metoprolol tartrate 75 mg tablet 75 mg PO BID 04/03/23 04/03/23 Unknown History naloxone 4 mg/actuation nasal spray 4 mg intranasal Q24H PRN 04/03/23 04/03/23 Unknown History SEDATION/UNRESPONSIVE nitroglycerin 0.4 mg sublingual 0.4 mg sublingual Q5M PRN Chest 04/03/23 04/03/23 Unknown History tablet Pain ondansetron HCl 4 mg tablet 4 mg PO Q6H PRN Nausea 04/03/23 04/03/23 Unknown History pantoprazole 40 mg tablet,delayed 40 mg PO DAILY@0630 04/03/23 04/03/23 Unknown History release potassium chloride 10 mEq 10 meq PO DAILY 04/03/23 04/03/23 Unknown History tablet,extended release potassium chloride 20 mEq 40 meq PO DAILY 04/03/23 04/03/23 Unknown History tablet,extended release(part/cryst) sodium phosphates 19 gram-7 118 ml AZ DAILY PRN Constipation 04/03/23 04/03/23 Unknown History gram/118 mL enema (Fleet Enema) tamsulosin 0.4 mg capsule 0.4 mg PO BEDTIME 04/03/23 04/03/23 Unknown History Physical Exam Vital Signs: Vital Signs: Last Vital Signs Temp 97.5 F 04/04/23 11:09 Pulse 80 04/04/23 11:09 Resp 20 04/04/23 11:09 BP 140/76 H 04/04/23 11:09 Pulse Ox 93 04/04/23 11:09 O2 Del Method Room Air 04/04/23 07:17 BMI result Body Mass Index 34.0 GENERAL APPEARANCE: Distressed due to shortness of breath. Not on supplemental oxygen. NECK: no carotid bruit, no obvious jugular venous distention. SKIN: no suspicious lesions, warm and dry. HEART: no murmurs, regular rate and rhythm. LUNGS: Bilateral expiratory wheezes. ABDOMEN: soft, nontender. EXTREMITIES: no edema. PERIPHERAL PULSES: equal. NEUROLOGIC: No gross deficits, AAO X 3 Objective Labs and Meds 04/04/23 06:53 04/04/23 06:53 Lab results: Laboratory Results - last 24 hr 04/03/23 04/03/23 04/03/23 14:15 14:15 16:03 WBC 9.4 RBC 3.97 L Hgb 9.3 L Hct 29.9 L MCV 75.3 L MCH 23.4 L MCHC 31.1 RDW 19.1 H Plt Count 267 MPV 10.0 Immature Gran % (Auto) 0.4 Neut % (Auto) 73.8 H Lymph % (Auto) 13.6 L [place] % (Auto) 6.5 Eos % (Auto) 5.3 H Baso % (Auto) 0.4 Lymph # (Auto) 1.3 [place] # (Auto) 0.6 Eos # (Auto) 0.5 H Baso # (Auto) 0.0 Abs Immat Gran (auto) 0.04 H Absolute Neuts (auto) 6.9 Absolute Nucleated RBC 0.000 Nucleated RBC % (auto) 0.0 PT INR Sodium Potassium Chloride Carbon Dioxide Anion Gap BUN Creatinine Estim Creat Clear Calc Estimated GFR POC Glucose Random Glucose Calcium Total Bilirubin AST ALT Alkaline Phosphatase Troponin I High Sens Total Protein Albumin Urine Color Yellow Urine Appearance Clear Urine pH 6.0 Ur Specific [place] 1.010 Urine Protein Negative Urine Glucose (UA) Negative Urine Ketones Negative Urine Blood Small (1+) H Urine Nitrite Negative Ur Leukocyte Esterase Trace H Urine RBC 6-10 H Urine WBC 0-5 Ur Squamous Epith Cells 0-2 Urine Bacteria None Seen Hyaline Casts 0-2 Urine Creatinine 45.00 Urine Microalbumin < 5.0 Microalb/Creat Ratio TNP Stool Occult Blood Blood Type Antibody Screen Crossmatch 04/03/23 04/03/23 04/03/23 16:03 16:03 17:40 WBC RBC Hgb Hct MCV MCH MCHC RDW Plt Count MPV Immature Gran % (Auto) Neut % (Auto) Lymph % (Auto) [place] % (Auto) Eos % (Auto) Baso % (Auto) Lymph # (Auto) [place] # (Auto) Eos # (Auto) Baso # (Auto) Abs Immat Gran (auto) Absolute Neuts (auto) Absolute Nucleated RBC Nucleated RBC % (auto) PT 15.4 H INR 1.3 H Sodium 141 Potassium 4.4 Chloride 111 H Carbon Dioxide 21 L Anion Gap 13 BUN 35 H Creatinine 1.25 Estim Creat Clear Calc 83.0 Estimated GFR 57 POC Glucose Random Glucose 226 H Calcium 8.9 Total Bilirubin 0.2 AST 12 ALT 11 Alkaline Phosphatase 149 H Troponin I High Sens Total Protein 6.2 L Albumin 3.0 L Urine Color Urine Appearance Urine pH Ur Specific [place] Urine Protein Urine Glucose (UA) Urine Ketones Urine Blood Urine Nitrite Ur Leukocyte Esterase Urine RBC Urine WBC Ur Squamous Epith Cells Urine Bacteria Hyaline Casts Urine Creatinine Urine Microalbumin Microalb/Creat Ratio Stool Occult Blood Blood Type AB Positive Antibody Screen NEGATIVE Crossmatch See Detail 04/03/23 04/03/23 04/04/23 17:41 21:00 02:55 WBC RBC Hgb Hct MCV MCH MCHC RDW Plt Count MPV Immature Gran % (Auto) Neut % (Auto) Lymph % (Auto) [place] % (Auto) Eos % (Auto) Baso % (Auto) Lymph # (Auto) [place] # (Auto) Eos # (Auto) Baso # (Auto) Abs Immat Gran (auto) Absolute Neuts (auto) Absolute Nucleated RBC Nucleated RBC % (auto) PT INR Sodium Potassium Chloride Carbon Dioxide Anion Gap BUN Creatinine Estim Creat Clear Calc Estimated GFR POC Glucose 150 H 126 H Random Glucose Calcium Total Bilirubin AST ALT Alkaline Phosphatase Troponin I High Sens Total Protein Albumin Urine Color Urine Appearance Urine pH Ur Specific [place] Urine Protein Urine Glucose (UA) Urine Ketones Urine Blood Urine Nitrite Ur Leukocyte Esterase Urine RBC Urine WBC Ur Squamous Epith Cells Urine Bacteria Hyaline Casts Urine Creatinine Urine Microalbumin Microalb/Creat Ratio Stool Occult Blood POSITIVE Blood Type Antibody Screen Crossmatch 04/04/23 04/04/23 04/04/23 03:56 04:18 06:53 WBC 7.6 RBC 3.98 L Hgb 8.5 L 9.4 L Hct 27.9 L 31.2 L MCV 78.4 L MCH 23.6 L MCHC 30.1 L RDW 20.3 H Plt Count 258 MPV 10.0 Immature Gran % (Auto) 0.4 Neut % (Auto) 67.1 Lymph % (Auto) 19.4 L [place] % (Auto) 7.4 Eos % (Auto) 5.2 H Baso % (Auto) 0.5 Lymph # (Auto) 1.5 [place] # (Auto) 0.6 Eos # (Auto) 0.4 Baso # (Auto) 0.0 Abs Immat Gran (auto) 0.03 Absolute Neuts (auto) 5.1 Absolute Nucleated RBC 0.000 Nucleated RBC % (auto) 0.0 PT 14.6 H INR 1.3 H Sodium Potassium Chloride Carbon Dioxide Anion Gap BUN Creatinine Estim Creat Clear Calc Estimated GFR POC Glucose Random Glucose Calcium Total Bilirubin AST ALT Alkaline Phosphatase Troponin I High Sens Total Protein Albumin Urine Color Urine Appearance Urine pH Ur Specific [place] Urine Protein Urine Glucose (UA) Urine Ketones Urine Blood Urine Nitrite Ur Leukocyte Esterase Urine RBC Urine WBC Ur Squamous Epith Cells Urine Bacteria Hyaline Casts Urine Creatinine Urine Microalbumin Microalb/Creat Ratio Stool Occult Blood Blood Type Antibody Screen Crossmatch 04/04/23 04/04/23 04/04/23 06:53 06:53 10:15 WBC RBC Hgb Hct MCV MCH MCHC RDW Plt Count MPV Immature Gran % (Auto) Neut % (Auto) Lymph % (Auto) [place] % (Auto) Eos % (Auto) Baso % (Auto) Lymph # (Auto) [place] # (Auto) Eos # (Auto) Baso # (Auto) Abs Immat Gran (auto) Absolute Neuts (auto) Absolute Nucleated RBC Nucleated RBC % (auto) PT INR Sodium 146 H Potassium 3.7 Chloride 115 H Carbon Dioxide 23 Anion Gap 12 BUN 27 H Creatinine 1.00 Estim Creat Clear Calc 83.1 Estimated GFR > 60 POC Glucose 115 Random Glucose 132 H Calcium 8.6 Total Bilirubin AST ALT Alkaline Phosphatase Troponin I High Sens 25.6 Total Protein Albumin Urine Color Urine Appearance Urine pH Ur Specific [place] Urine Protein Urine Glucose (UA) Urine Ketones Urine Blood Urine Nitrite Ur Leukocyte Esterase Urine RBC Urine WBC Ur Squamous Epith Cells Urine Bacteria Hyaline Casts Urine Creatinine Urine Microalbumin Microalb/Creat Ratio Stool Occult Blood Blood Type Antibody Screen Crossmatch Imaging Radiologist's impression: Impressions Abdomen/Pelvis CT 04/03/23 19:05 IMPRESSION: 1. No acute abnormality the abdomen or pelvis 2. Mild fullness of the right and left renal collecting systems and mild hydroureter of the distal ureters bilaterally. No renal or ureteral calculus. 3. Status post cholecystectomy. Pneumobilia. Fleischner guidelines were followed. Chest X-Ray 04/04/23 03:30 IMPRESSION: Possible subtle interstitial edema. No focal consolidation. Assessment and Plan (1) Chronic systolic CHF (congestive heart failure): Status: Acute (2) GI bleed: Status: Acute (3) Coronary artery disease: Status: Acute Plan 72-year-old gentleman with complex cardiovascular issues. He has history of atrial fibrillation, previous coronary disease and cardiomyopathy with EF 30 35%, NSTEMI in 2021 when he had drug-eluting stent placed to om 1. Previously had LAD PCI. He also has ICD placed for ventricular tachycardia. He is pr esenting with GI bleed. He was on apixaban and Plavix. Both are head appropriately. He is wheezing and has interstitial edema on the chest x-ray. Give him 40 mg IV Lasix. His blood pressure needs to be better controlled and I will adjust his medications. Overall after reviewing everything I think we need to do an echocardiogram to assess his LV function because last echocardiogram was in 2016. Ideally should be stabilizes with blood transfusion as needed and optimize further. I think he is intermediate to high risk right now. Thank you for allowing me to participate in the care of your patient. Please feel free to contact me if you have any questions. Time Spent With Patient Time: Total time managing care of this patient today ____ minutes. Procedures Date of Service Date of Service: 04/04/23
[2023-04-04] MEDS: bisacodyL 5 MG TABLET.DR 10 MG PO (16:23)
--- NOTE | 2023-04-04 16:23 | PM.CNPUL ---
History of Present Illness History of Present Illness Consult date: 04/04/23 Requesting physician: Abdias Vargas Chief complaint: GI Bleed, preop Narrative: 72-year-old gentleman with underlying congestive heart failure, paroxysmal AFib on Eliquis, hypertension, CAD, diabetes mellitus, likely COPD, former 50+ pack-year smoker, quit 2019 admitted on 04/03/2023 with GI bleed, being planned for endoscopy / colonoscopy and pulmonary evaluation with requested for pulmonary preoperative risk assessment. Patient denies any dyspnea, cough, sputum production, wheezing. Review of Systems Constitutional: Constitutional: Denies daytime sleepiness, Denies excessive sweating, Denies fatigue, Denies fever(s), Denies lethargy, Denies malaise, Denies night sweats, Denies snoring and Denies weight loss Eyes: Eyes: Denies blurry vision and Denies itchy eyes ENT: Denies nasal congestion, Denies post nasal drip, Denies sinus pain, Denies sinus pressure and Denies other ( Thrush) Cardiovascular: Cardiovascular: Denies chest pain, Denies pedal edema, Denies dyspnea, Denies orthopnea and Denies paroxysmal nocturnal dyspnea Respiratory: Respiratory: Denies cough, Denies hemoptysis, Denies excessive phlegm production, Denies dyspnea, Denies snoring and Denies wheezing Gastrointestinal: Gastrointestinal: Denies abdominal pain, Reports hematochezia and Denies heartburn Musculoskeletal: Musculoskeletal: Denies myalgias, Denies arthralgias and Denies joint swelling Integumentary/Breasts: Skin/Breast: Denies rash Neurologic: Denies memory loss and Denies seizure-like activity Psychiatric: Psychiatric: Denies abnormal sleep pattern, Denies anxiety and Denies memory loss Endocrine: Endocrine: Denies excessive sweating, Denies fatigue and Denies heat intolerance Hematologic/Lymphatic: Hematologic/Lymphatic: Denies easy bruising Allergic/Immunologic: Allergic/Immunologic: Denies itchy eyes, Denies seasonal rhinorrhea and Denies wheezing PMFSH Past Medical History Medical History (Updated 04/04/23 @ 16:28 by Neil Knight MD) Chronic systolic CHF (congestive heart failure) Congestive heart failure Coronary artery disease Essential hypertension Insulin dependent type 2 diabetes mellitus Mood disorder Paroxysmal atrial fibrillation Social History Social History Housing: Longterm Patient Tobacco Use Status: Tobacco use Unknown service: Yes Meds Allergies Allergy/AdvReac Type Severity Reaction Status Date / Time coconut [COCONUT] Allergy Unknown HIVES Unverified 06/03/20 14:35 pineapple [PINEAPPLE] Allergy Unknown HIVES Unverified 06/03/20 14:35 Active Medications: Current Medications Acetaminophen (Acetaminophen 325 Mg Tablet) 650 mg PO Q6H PRN PRN Reason: Pain, Mild (Pain Scale 1-3) Acetaminophen (Acetaminophen Supp 650 Mg Supp.Rect) 650 mg GA Q6H PRN PRN Reason: Pain, Mild (Pain Scale 1-3) Dextrose (Dextrose 50 % 25 Gm/50 Ml Syringe) 25 gm IVPUSH Q15M PRN; Protocol PRN Reason: per Hypoglycemia Standing Ord. Furosemide (Furosemide 40 Mg/4 Ml Vial) 40 mg IVPUSH BID@0900,1800 [facility]; Protocol Glucose (Glucose Gel 15 Gm Gel..Gram.) 15 gm PO Q15M PRN; Protocol PRN Reason: per Hypoglycemia Standing Ord. Insulin Human Lispro (Insulin Lispro 100 Unit/Ml 3 Ml Vial) 0 unit SUBCUT Q6H [facility]; Protocol Last Admin: 04/04/23 10:55 Dose: Not Given Melatonin (Melatonin 3 Mg Tablet) 6 mg PO BEDTIME PRN PRN Reason: Insomnia Metoprolol Tartrate (Metoprolol Tartrate 25 Mg Tablet) 75 mg PO BID [facility]; Protocol Last Admin: 04/04/23 11:21 Dose: 75 mg Ondansetron HCl (Ondansetron Hcl 4 Mg/2 Ml Vial) 4 mg IVPUSH Q8H PRN PRN Reason: Nausea and Vomiting Last Admin: 04/04/23 01:16 Dose: 4 mg Pantoprazole Sodium (Pantoprazole Sodium 40 Mg/10 Ml Vial) 40 mg IVPUSH BID@0630,1630 [facility] Last Admin: 04/04/23 05:51 Dose: 40 mg Pharmacy Consult (Consult Rx Perform Med Rec) 1 each MISCELLANE ONCE PRN PRN Reason: Consult order Sodium Chloride (0.9 % Sodium Chloride Flush 3 Ml Syringe) 3 ml IVFLUSH QSHIFT [facility] Last Admin: 04/04/23 08:00 Dose: 3 ml Tamsulosin HCl (Tamsulosin Hcl 0.4 Mg Capsule) 0.4 mg PO BEDTIME [facility] Home Medications Medication Instructions Recorded Confirmed Last Taken Type acetaminophen 325 mg tablet 650 mg PO Q4H PRN PAIN/FEVER 04/03/23 04/03/23 Unknown History acetaminophen 650 mg rectal 650 mg GA Q4H PRN PAIN/FEVER 04/03/23 04/03/23 Unknown History suppository albuterol sulfate 90 mcg/actuation 2 puff inhalation Q6H PRN 04/03/23 04/03/23 Unknown History aerosol inhaler Shortness Of Breath aluminum-mag hydroxide-simethicone 20 ml PO Q6H PRN UPSET STOMACH 04/03/23 04/03/23 Unknown History 400 mg-400 mg-40 mg/5 mL oral susp (Maalox Maximum Strength) amitriptyline 25 mg tablet 75 mg PO BEDTIME 04/03/23 04/03/23 Unknown History ammonium lactate 12 % topical cream 1 appl topical BID 04/03/23 04/03/23 Unknown History apixaban 5 mg tablet (Eliquis) 5 mg PO BID 04/03/23 04/03/23 Unknown History ascorbic acid (vitamin C) 500 mg 500 mg PO BID 04/03/23 04/03/23 Unknown History tablet atorvastatin 80 mg tablet 80 mg PO BEDTIME 04/03/23 04/03/23 Unknown History bisacodyl 10 mg rectal suppository 10 mg GA DAILY PRN Constipation 04/03/23 04/03/23 Unknown History bumetanide 1 mg tablet 5 mg PO BID 04/03/23 04/03/23 Unknown History bupropion HCl 150 mg tablet,12 hr 150 mg PO BID 04/03/23 04/03/23 Unknown History sustained-release cholecalciferol (vitamin D3) 1,250 1,250 mcg PO QMONTH 04/03/23 04/03/23 Unknown History mcg (50,000 unit) capsule cholestyramine (with sugar) 4 gram 1 ea PO BID 04/03/23 04/03/23 Unknown History oral powder clopidogrel 75 mg tablet 75 mg PO DAILY 04/03/23 04/03/23 Unknown History cyanocobalamin (vitamin B-12) 500 1,000 mcg PO DAILY 04/03/23 04/03/23 Unknown History mcg tablet dapagliflozin propanediol 10 mg 10 mg PO DAILY 04/03/23 04/03/23 Unknown History tablet (Farxiga) dicyclomine 20 mg tablet 40 mg PO QID 04/03/23 04/03/23 Unknown History glycopyrrolate 9 mcg-formoterol 2 puff inhalation BID 04/03/23 04/03/23 Unknown History 4.8 mcg HFA aerosol inhaler (Bevespi Aerosphere) insulin glargine 100 unit/mL 20 unit subcut DAILY 04/03/23 04/03/23 Unknown History subcutaneous solution insulin glargine 100 unit/mL 90 unit subcut BEDTIME 04/03/23 04/03/23 Unknown History subcutaneous solution insulin lispro 100 unit/mL See Protocol subcut TIDAC 04/03/23 04/03/23 Unknown History subcutaneous cartridge (Humalog U-100 Insulin) isosorbide mononitrate 60 mg 60 mg PO DAILY 04/03/23 04/03/23 Unknown History tablet,extended release 24 hr loperamide 2 mg tablet (Imodium 2 mg PO Q4H PRN Diarrhea 04/03/23 04/03/23 Unknown History A-D) magnesium hydroxide 400 mg/5 mL 30 ml PO DAILY PRN Constipation 04/03/23 04/03/23 Unknown History oral suspension (Milk of Magnesia) melatonin 3 mg tablet 6 mg PO BEDTIME 04/03/23 04/03/23 Unknown History methyl salicylate-menthol topical 1 appl topical BID PRN Pain 04/03/23 04/03/23 Unknown History cream metoprolol tartrate 75 mg tablet 75 mg PO BID 04/03/23 04/03/23 Unknown History naloxone 4 mg/actuation nasal spray 4 mg intranasal Q24H PRN 04/03/23 04/03/23 Unknown History SEDATION/UNRESPONSIVE nitroglycerin 0.4 mg sublingual 0.4 mg sublingual Q5M PRN Chest 04/03/23 04/03/23 Unknown History tablet Pain ondansetron HCl 4 mg tablet 4 mg PO Q6H PRN Nausea 04/03/23 04/03/23 Unknown History pantoprazole 40 mg tablet,delayed 40 mg PO DAILY@0630 04/03/23 04/03/23 Unknown History release potassium chloride 10 mEq 10 meq PO DAILY 04/03/23 04/03/23 Unknown History tablet,extended release potassium chloride 20 mEq 40 meq PO DAILY 04/03/23 04/03/23 Unknown History tablet,extended release(part/cryst) sodium phosphates 19 gram-7 118 ml GA DAILY PRN Constipation 04/03/23 04/03/23 Unknown History gram/118 mL enema (Fleet Enema) tamsulosin 0.4 mg capsule 0.4 mg PO BEDTIME 04/03/23 04/03/23 Unknown History Physical Exam Vital Signs: Vital Signs: Last Vital Signs Temp 97.8 F 04/04/23 15:27 Pulse 92 04/04/23 15:27 Resp 17 04/04/23 15:27 BP 171/79 H 04/04/23 15:27 Pulse Ox 93 04/04/23 15:27 O2 Del Method Room Air 04/04/23 15:27 BMI result Body Mass Index 34.0 Const: General: no acute distress and alert Nutritional Appearance: obese Orientation/consciousness: Other orientation findings ( oriented) HEENT: Head: Yes atraumatic Eyes: General: appearance normal, both eyes and all related structures Sclerae: sclerae normal EOM: EOMs intact bilaterally Neck: Neck: Yes supple Lymphatic: no lymphadenopathy noted Resp: Effort & Inspection: normal respiratory effort and no use of accessory muscles Auscultation: crackles ( mild bilateral) Cardio: Rate: regular rate Rhythm: regular rhythm Heart sounds: no gallops, no murmurs and no rubs Skin: General skin exam: other ( warm) Extrem: General: No clubbing, No cyanosis and Yes edema ( trace bilateral) Results Laboratory Findings 04/04/23 06:53 04/04/23 06:53 ABG, PT/INR, D-dimer: PT/INR, D-dimer PT 14.6 SEC (10.0-13.1) H 04/04/23 03:56 INR 1.3 (0.9-1.1) H 04/04/23 03:56 Abnormal lab findings: Abnormal Labs 04/03/23 04/03/23 04/03/23 14:15 16:03 16:03 RBC 3.97 L Hgb 9.3 L Hct 29.9 L MCV 75.3 L MCH 23.4 L MCHC RDW 19.1 H Neut % (Auto) 73.8 H Lymph % (Auto) 13.6 L Eos % (Auto) 5.3 H Eos # (Auto) 0.5 H Abs Immat Gran (auto) 0.04 H PT INR Sodium Chloride 111 H Carbon Dioxide 21 L BUN 35 H POC Glucose Random Glucose 226 H Alkaline Phosphatase 149 H Total Protein 6.2 L Albumin 3.0 L Urine Blood Small (1+) H Ur Leukocyte Esterase Trace H Urine RBC 6-10 H Crossmatch 04/03/23 04/03/23 04/03/23 16:03 17:40 21:00 RBC Hgb Hct MCV MCH MCHC RDW Neut % (Auto) Lymph % (Auto) Eos % (Auto) Eos # (Auto) Abs Immat Gran (auto) PT 15.4 H INR 1.3 H Sodium Chloride Carbon Dioxide BUN POC Glucose 150 H Random Glucose Alkaline Phosphatase Total Protein Albumin Urine Blood Ur Leukocyte Esterase Urine RBC Crossmatch See Detail 04/04/23 04/04/23 04/04/23 02:55 03:56 04:18 RBC Hgb 8.5 L Hct 27.9 L MCV MCH MCHC RDW Neut % (Auto) Lymph % (Auto) Eos % (Auto) Eos # (Auto) Abs Immat Gran (auto) PT 14.6 H INR 1.3 H Sodium Chloride Carbon Dioxide BUN POC Glucose 126 H Random Glucose Alkaline Phosphatase Total Protein Albumin Urine Blood Ur Leukocyte Esterase Urine RBC Crossmatch 04/04/23 04/04/23 06:53 06:53 RBC 3.98 L Hgb 9.4 L Hct 31.2 L MCV 78.4 L MCH 23.6 L MCHC 30.1 L RDW 20.3 H Neut % (Auto) Lymph % (Auto) 19.4 L Eos % (Auto) 5.2 H Eos # (Auto) Abs Immat Gran (auto) PT INR Sodium 146 H Chloride 115 H Carbon Dioxide BUN 27 H POC Glucose Random Glucose 132 H Alkaline Phosphatase Total Protein Albumin Urine Blood Ur Leukocyte Esterase Urine RBC Crossmatch Assessment and Plan (1) Preop pulmonary/respiratory exam: Status: Acute Plan Impression/Recommendations: 72-year-old gentleman admitted with GI bleed with likely underlying COPD of unclear severity, but with no dyspnea or wheezing and currently not on bronchodilators. X-ray chest demonstrated essentially normal lungs. No concern for CO2 retention or significant air trapping at this time. At this time patient is at low risk for pulmonary perioperative complications for the proposed endoscopy/ colonoscopy under general anesthesia or monitored anesthesia care. No further pulmonary optimization for the proposed procedures is feasible at this time. Time Spent With Patient Time: Total time managing care of this patient today ____ minutes. Procedures Date of Service Date of Service: 04/04/23
[2023-04-04 16:25] LABS: Glucose, Whole Blood 182 mg/dL (60-115)
[2023-04-04] MEDS: Furosemide 40 MG/4 ML VIAL IVPUSH (16:31)
[2023-04-04 18:04] LABS: Glucose, Whole Blood 176 mg/dL (60-115)
[2023-04-04] MEDS: Insulin Lispro 100 UNIT/ML 3 ML VIAL SUBCUT ×2 (18:16→21:27)
[2023-04-04] MEDS: Tamsulosin HCL 0.4 MG CAPSULE PO (21:14)
[2023-04-04 21:21] LABS: Glucose, Whole Blood 165 mg/dL (60-115)
[2023-04-05] VITALS (7 sets, daily range): BP systolic 118–175; BP diastolic 50–73; PULSE 59–73; RESP 14–20; TEMP 36–36.9; O2SAT 93–98
[2023-04-05] MEDS: 0.9 % Sodium Chloride Flush 3 ML SYRINGE IVFLUSH
--- NOTE | 2023-04-05 | ECG_ITS ---
Test Reason : nstemi Blood Pressure : / mmHG Vent. Rate : 070 BPM Atrial Rate : 070 BPM P-R Int : 240 ms QRS Dur : 104 ms QT Int : 476 ms P-R-T Axes : 107 -15 203 degrees QTc Int : 514 ms Sinus rhythm with 1st degree A-V block ST & T wave abnormality, consider inferolateral ischemia Prolonged QT Abnormal ECG When compared with ECG of 05-APR-2023 17:13, No significant change was found Referred By: Abdias Vargas Electronically Signed By:Eris Agustin
[2023-04-05] MEDS: Pantoprazole Sodium 40 MG/10 ML VIAL IVPUSH ×2 (05:23→16:51)
--- NOTE | 2023-04-05 07:00 | CA_ITS ---
Transthoracic Echocardiogram Patient (Last, First, Middle): Manny Sharp, Gender: Male Date of : 1950 Age: 72 Procedure Date: 04/05/2023 Procedure Type: Transthoracic Echocardiogram Location: [facility] [place] Height: 177.8 cm Weight: 107.05 kg BSA: 2.24 m2 Heart Rate: bpm BP: 171 / 79 mmHg Parachute Marker: TO Referring MD: Abdias Vargas MD Symptoms: sob Study Quality: Technically Difficult, contrast used Conclusions: - Normal left ventricular cavity size. The left ventricular systolic function is moderate to severely decreased. The visually estimated ejection fraction is between 25-30%. - Normal right ventricular cavity size. There is mildly decreased right ventricular systolic function. There is an ICD wire seen in the right ventricle. - There is moderate calcification of the aortic valve. The peak aortic velocity is 2.89 m/s with a calculated peak gradient of 33 mmHg. The mean gradient is 17 mmHg. The aortic valve area is 0.72 cm2. There is no aortic valve regurgitation. Moderate to severe . The noncoronary cusp is still mobile and overall appears to be more moderate based on gradients Findings Procedure Information Contrast agent, definity, is being given per protocol without apparent complications. The quality of the study was technically difficult. The study quality is limited by the patients inability to tolerate the test and patients body habitus. Left Ventricle Normal left ventricular cavity size. The left ventricular systolic function is moderate to severely decreased. The visually estimated ejection fraction is between 25-30%. There is severe global hypokinesis. Abnormal diastolic function is noted. Elevated filling pressures. Right Ventricle Normal right ventricular cavity size. There is mildly decreased right ventricular systolic function. There is an ICD wire seen in the right ventricle. Atria The left atrium is mildly dilated. The right atrium is mildly dilated. Aortic Valve There is moderate calcification of the aortic valve. The peak aortic velocity is 2.89 m/s with a calculated peak gradient of 33 mmHg. The mean gradient is 17 mmHg. The aortic valve area is 0.72 cm2. There is no aortic valve regurgitation. Moderate to severe . The noncoronary cusp is still mobile and overall appears to be more moderate based on gradients Mitral Valve There is moderate mitral annular calcification. There is trace mitral valve regurgitation. Flow acceleration across the mitral valve with mean gradient 4 mm Hg at HR 61/min. Mitral stenosis is present. Pulmonic Valve The pulmonic valve is likely normal. Tricuspid Valve Likely normal tricuspid valve structure and function. Indeterminate right atrial pressure. PASP = 45+ RA pressure. Great Vessels All visible segments of the aorta are normal in size. Venous The inferior vena cava was not well visualized. Pericardium/Pleural There is no evidence of pericardial effusion. Measurements 2D Linear Measurements LVOT Diam: 2.00 3.0+(-)1.3 cm 2D Systolic Function EF 4C: 22.60 >55% EF 2C: 28.10 >55% EF BiP: 25.90 >55% Mitral Valve MV VTI: 0.49 MV Pk Huang: 1.45 MV Mn Huang: 0.83 MV Pk Grad: 8.00 MV Mn Grad: 4.00 MV Pk E: 1.16 MV PK A: 0.85 MV Decel Time: 300.00 E/A: 1.40 E'Lateral: 8.59 E'Medial: 6.31 E/E' Med: 18.40 E/E' Lat: 13.50 PHT: 88.00 MVA PHT: 2.50 MVA Continuity: 1.09 Decel [place]: 3.85 Aortic Valve AoV Pk Huang: 2.89 AoV Mn Huang: 1.93 AoV VTI: 0.73 AoV Pk Grad: 33.00 Aov Mn Grad: 17.00 JESSICA Cont.VTI: 0.72 LVOT LVOT Pk Huang: 0.64 LVOT Mn Huang: 0.43 LVOT VTI: 0.17 LVOT Pk Grad: 2.00 LVOT Mn Grad: 1.00 LVOT Diam: 2.00 LVOT Area: 3.14 Diastolic Function MV Pk E: 1.16 MV Pk A: 0.85 E/A: 1.40 E'Medial: 6.31 E/E' Med: 18.40 E' Laterial: 8.59 E/E' Lat: 13.50 Right Ventricle TAPSE (mm): 27.00 TVS' Huang: 10.30 Tricuspid Valve TR Pk Huang: 3.21 TR Pk Grad: 41.00 Great Vessels Aorta Sinus of Valsalva: 3.40 2.0-3.5 cm Ao Asc: 2.40 2.1-3.4 cm Updated in Other Vendor System with Status of Final Eris Agustin MD electronically signed on 04/05/2023 3:00:25 PM with status of Final
[2023-04-05 07:14] LABS: Hematocrit 29.8 % (42.0-52.0); Hemoglobin 9.2 g/dl (14.0-18.0); Mean Corpuscular HGB Conc 30.9 g/dl (31.0-36.0); Mean Corpuscular Hemoglobin 23.7 pg (27.0-33.0); Mean Corpuscular Volume 76.8 fL (80.0-98.0); Mean Platelet Volume 9.8 fL (9.4-12.4); Platelet Count 251 X10*3/uL (160-400); Red Blood Count 3.88 X10*6/uL (4.60-5.80); Red Cell Distribution Width 19.9 % (11.0-16.0); White Blood Count 7.3 X10*3/uL (4.8-10.8)
[2023-04-05 07:23] LABS: Glucose, Whole Blood 104 mg/dL (60-115)
[2023-04-05 07:24] LABS: Anion Gap 8 (12-20); Blood Urea Nitrogen 18 mg/dL (9-16); Calcium 8.1 mg/dL (8.4-10.2); Carbon Dioxide 25 mmol/L (22-29); Chloride 110 mmol/L (96-108); Creatinine Clr Calc Pharmacy 94.5; Estimated Glomerular Filt Rate > 60; Glucose Fasting 126 mg/dL (60-99); Potassium 3.3 mmol/L (3.3-5.1); Sodium 140 mmol/L (135-145)
--- NOTE | 2023-04-05 09:02 | P.PNIM_ITS ---
Subjective Subjective Date of Service: 04/05/23 Interval History: weakness Physical Exam Vital Signs: Vital Signs: Last Vital Signs Temp 97.8 F 04/05/23 07:06 Pulse 68 04/05/23 07:06 Resp 20 04/05/23 07:06 BP 136/60 04/05/23 07:06 Pulse Ox 96 04/05/23 07:06 O2 Del Method Room Air 04/05/23 07:06 BMI result Body Mass Index 34.0 Const: General: no acute distress and alert Nutritional Appearance: obese Orientation/consciousness: Other orientation findings ( oriented) HEENT: Head: Yes atraumatic Eyes: General: appearance normal, both eyes and all related structures Sclerae: sclerae normal EOM: EOMs intact bilaterally Neck: Neck: Yes supple Lymphatic: no lymphadenopathy noted Resp: Effort & Inspection: normal respiratory effort and no use of accessory muscles Auscultation: crackles ( mild bilateral) Cardio: Rate: regular rate Rhythm: regular rhythm Heart sounds: no gallops, no murmurs and no rubs Skin: General skin exam: other ( warm) Extrem: General: No clubbing, No cyanosis and Yes edema ( trace bilateral) Objective Data Active Medications Acetaminophen (Acetaminophen 325 Mg Tablet) 650 mg PO Q6H PRN PRN Reason: Pain, Mild (Pain Scale 1-3) Acetaminophen (Acetaminophen Supp 650 Mg Supp.Rect) 650 mg MA Q6H PRN PRN Reason: Pain, Mild (Pain Scale 1-3) Dextrose (Dextrose 50 % 25 Gm/50 Ml Syringe) 25 gm IVPUSH Q15M PRN; Protocol PRN Reason: per Hypoglycemia Standing Ord. Furosemide (Furosemide 40 Mg/4 Ml Vial) 40 mg IVPUSH BID@0900,1800 [facility]; Protocol Last Admin: 04/04/23 16:39 Dose: Not Given Documented By: SVITLANA Non-Admin Reason: Physician Held Med Comments: previously administered Glucose (Glucose Gel 15 Gm Gel..Gram.) 15 gm PO Q15M PRN; Protocol PRN Reason: per Hypoglycemia Standing Ord. Insulin Human Lispro (Insulin Lispro 100 Unit/Ml 3 Ml Vial) 0 unit SUBCUT QI [facility]; Protocol Last Admin: 04/05/23 08:06 Dose: Not Given Documented By: OSVALDO Non-Admin Reason: See Note Melatonin (Melatonin 3 Mg Tablet) 6 mg PO BEDTIME PRN PRN Reason: Insomnia Metoprolol Tartrate (Metoprolol Tartrate 25 Mg Tablet) 75 mg PO BID [facility]; Protocol Last Admin: 04/04/23 21:13 Dose: 75 mg Documented By: NGUYỄN Ondansetron HCl (Ondansetron Hcl 4 Mg/2 Ml Vial) 4 mg IVPUSH Q8H PRN PRN Reason: Nausea and Vomiting Last Admin: 04/04/23 01:16 Dose: 4 mg Documented By: MARCO Pantoprazole Sodium (Pantoprazole Sodium 40 Mg/10 Ml Vial) 40 mg IVPUSH BID@0630,1630 [facility] Last Admin: 04/05/23 05:23 Dose: 40 mg Documented By: RAMOS Pharmacy Consult (Consult Rx Perform Med Rec) 1 each MISCELLANE ONCE PRN PRN Reason: Consult order Sodium Chloride (0.9 % Sodium Chloride Flush 3 Ml Syringe) 3 ml IVFLUSH QSHIFT [facility] Last Admin: 04/05/23 07:54 Dose: Not Given Documented By: OSVALDO Non-Admin Reason: See Note Tamsulosin HCl (Tamsulosin Hcl 0.4 Mg Capsule) 0.4 mg PO BEDTIME [facility] Last Admin: 04/04/23 21:14 Dose: 0.4 mg Documented By: NGUYỄN Labs 04/05/23 06:59 04/05/23 06:59 Labs: Laboratory Results - last 24 hr 04/04/23 04/04/23 04/04/23 10:15 16:21 18:01 MCV MCH MCHC RDW Plt Count MPV Absolute Nucleated RBC Nucleated RBC % (auto) Anion Gap Estim Creat Clear Calc Estimated GFR POC Glucose 115 182 H 176 H Fasting Glucose Calcium 04/04/23 04/05/23 04/05/23 21:17 06:59 06:59 MCV 76.8 L MCH 23.7 L MCHC 30.9 L RDW 19.9 H Plt Count 251 MPV 9.8 Absolute Nucleated RBC 0.000 Nucleated RBC % (auto) 0.0 Anion Gap 8 L Estim Creat Clear Calc 94.5 Estimated GFR > 60 POC Glucose 165 H Fasting Glucose 126 H Calcium 8.1 L 04/05/23 07:08 MCV MCH MCHC RDW Plt Count MPV Absolute Nucleated RBC Nucleated RBC % (auto) Anion Gap Estim Creat Clear Calc Estimated GFR POC Glucose 104 Fasting Glucose Calcium Assessment and Plan (1) Chronic systolic CHF (congestive heart failure): Status: Acute Plan 72M PMH chronic systolic chf, CAD, paroxysmal afib on eliquis, mood disorder, htn, hld, DM presented with melena acute blood loss anemia due to melena iv ppi, monitor cbc, gi appreciated - plan on egd/colonoscopy after diuresis holding plavix, eliquis acute on chronic systolic chf metoprolol, iv lasix, follow up echo htn metoprolol paroxysmal afib metoprolol holding eliquis cad holding eliquis, plavix DM insulin dvt prophylaxis - mechanical due to gi bleed DNR reason for continued hospitalization:active bleed Time Spent With Patient Time: Total time managing care of this patient today ____ minutes. Quality Stroke Does the patient have a stroke diagnosis?: No VTE Prior VTE?: No VTE Risk Level:: Medical - moderate - high VTE Device Contraindication: N/A - Device Ordered VTE Drug Contraindication: Treatment Not Indicated
[2023-04-05] MEDS: Acetaminophen 325 MG TABLET 650 MG PO (09:31)
[2023-04-05] MEDS: Metoprolol Tartrate 25 MG TABLET 75 MG PO ×2 (09:31→20:59)
[2023-04-05] MEDS: Furosemide 40 MG/4 ML VIAL IVPUSH ×2 (09:31→17:29)
[2023-04-05 10:57] LABS: Glucose, Whole Blood 108 mg/dL (60-115)
[2023-04-05] MEDS: oxyCODONE HCl Immed Release 5 MG TABLET PO ×2 (12:13→21:06)
--- NOTE | 2023-04-05 13:18 | PM.PNCARD ---
Subjective Subjective Date of Service: 04/05/23 Interval history: Patient was seen examined at bedside. Clinically stable and respiratory status is improving after diuretics. Physical Exam Vital Signs: Last Vital Signs Temp 97.1 F 04/05/23 10:44 Pulse 59 04/05/23 10:44 Resp 20 04/05/23 10:44 BP 118/63 04/05/23 10:44 Pulse Ox 95 04/05/23 10:44 O2 Del Method Room Air 04/05/23 10:44 BMI result Body Mass Index 34.0 GENERAL APPEARANCE: In no acute distress. NECK: no carotid bruit, no obvious jugular venous distention. SKIN: no suspicious lesions, warm and dry. HEART: no murmurs, regular rate and rhythm. LUNGS: Clear to auscultation. ABDOMEN: soft, nontender. EXTREMITIES: no edema. PERIPHERAL PULSES: equal. NEUROLOGIC: No gross deficits, AAO X 3 Objective Labs and Meds 04/05/23 06:59 04/05/23 06:59 Lab results: Laboratory Results - last 24 hr 04/04/23 04/04/23 04/04/23 16:21 18:01 21:17 WBC RBC Hgb Hct MCV MCH MCHC RDW Plt Count MPV Absolute Nucleated RBC Nucleated RBC % (auto) Sodium Potassium Chloride Carbon Dioxide Anion Gap BUN Creatinine Estim Creat Clear Calc Estimated GFR POC Glucose 182 H 176 H 165 H Fasting Glucose Calcium 04/05/23 04/05/23 04/05/23 06:59 06:59 07:08 WBC 7.3 RBC 3.88 L Hgb 9.2 L Hct 29.8 L MCV 76.8 L MCH 23.7 L MCHC 30.9 L RDW 19.9 H Plt Count 251 MPV 9.8 Absolute Nucleated RBC 0.000 Nucleated RBC % (auto) 0.0 Sodium 140 Potassium 3.3 Chloride 110 H Carbon Dioxide 25 Anion Gap 8 L BUN 18 H Creatinine 0.88 Estim Creat Clear Calc 94.5 Estimated GFR > 60 POC Glucose 104 Fasting Glucose 126 H Calcium 8.1 L 04/05/23 10:48 WBC RBC Hgb Hct MCV MCH MCHC RDW Plt Count MPV Absolute Nucleated RBC Nucleated RBC % (auto) Sodium Potassium Chloride Carbon Dioxide Anion Gap BUN Creatinine Estim Creat Clear Calc Estimated GFR POC Glucose 108 Fasting Glucose Calcium Progress Note: A&P Assessment and plan (1) Acute on chronic systolic (congestive) heart failure: Status: Acute (2) Paroxysmal atrial fibrillation: Status: Acute (3) GI bleed: Status: Acute Plan 72-year-old gentleman who is here for GI bleed. He has background of coronary disease with previous anterior wall MN and ischemic cardiomyopathy, ventricular tachycardia requiring ICD placement as well as NSTEMI in June 2022 when he had PCI to the OM artery. He has been off Plavix and apixaban currently. Clinically he appears to be stable and improving with diuretics. I think we continue IV diuretics today and transition to oral Lasix 40 mg p.o. b.i.d. from tomorrow. He is intermediate to high risk for perioperative cardiovascular complications. Once he is done with endoscopy changes metoprolol tartrate to succinate 100 mg. He should be started on Entresto after the endoscopy too. He follows up with [facility]. Thank you for allowing me to participate in the care of your patient. Please feel free to contact me if you have any questions. Time Spent With Patient Time: Total time managing care of this patient today ____ minutes. Progress Note: Quality Stroke Does the patient have a stroke diagnosis?: No Procedures Date of Service Date of Service: 04/05/23
[2023-04-05] MEDS: Potassium Chloride ER 20 MEQ TAB.ER.PRT 40 MEQ PO (14:12)
[2023-04-05 16:20] LABS: Glucose, Whole Blood 179 mg/dL (60-115)
[2023-04-05] MEDS: Insulin Lispro 100 UNIT/ML 3 ML VIAL SUBCUT ×2 (16:50→20:59)
--- NOTE | 2023-04-05 17:13 | ECG_ITS ---
Test Reason : CHEST PAIN Blood Pressure : / mmHG Vent. Rate : 068 BPM Atrial Rate : 068 BPM P-R Int : 244 ms QRS Dur : 098 ms QT Int : 458 ms P-R-T Axes : 036 -22 189 degrees QTc Int : 487 ms Sinus rhythm with 1st degree A-V block with Premature atrial complexes ST & T wave abnormality, consider inferolateral ischemia Prolonged QT Abnormal ECG When compared with ECG of 04-APR-2023 05:33, Premature atrial complexes are now Present Referred By: Abdias Vargas Electronically Signed By:Eris Agustin
--- NOTE | 2023-04-05 17:18 | PC.NURSE ---
C/O CHEST PAIN, PRESSURE 7/10 TO THE WHOLE UPPER CHEST. STATED i GET THEM ALL THE TIME . dR MILLER WAS NOTIFIED , EKG ORDERED. BP 175/73, HR 73, O 2 SAT 97% ON ROOM AIR , CARDiac rhythm sr with 1 degree AVB
[2023-04-05 18:47] LABS: Troponin-I High Sensitivity 1376.1 ng/L (<3.5-35.0)
--- NOTE | 2023-04-05 18:50 | PC.NURSE ---
chest pain is gone per pt report, troponin level 1376.1 Dr. Casillas aware ,per dr casillas he will notify cardiology and nitro and morphine can be use for pain , pt hasd bloody stools on this admission and is scheduled for upper endo and sigmoidoscopy tomorrow, the procedure will be evaluated tommorow
[2023-04-05] MEDS: Nitroglycerin 0.1 MG PATCH.TD24 TRANSDERMA (19:41)
[2023-04-05 20:15] LABS: Glucose, Whole Blood 349 mg/dL (60-115)
[2023-04-05] MEDS: Tamsulosin HCL 0.4 MG CAPSULE PO (20:59)
[2023-04-05 22:02] LABS: Hematocrit 30.3 % (42.0-52.0); Hemoglobin 9.4 g/dl (14.0-18.0)
[2023-04-05 22:25] LABS: Troponin-I High Sensitivity 1072.1 ng/L (<3.5-35.0)
[2023-04-06] VITALS (7 sets, daily range): BP systolic 126–157; BP diastolic 61–67; PULSE 57–70; RESP 12–20; TEMP 36.1–36.7; O2SAT 91–99
[2023-04-06] MEDS: 0.9 % Sodium Chloride Flush 3 ML SYRINGE IVFLUSH ×4 (01:06→20:19)
[2023-04-06] MEDS: Albuterol/Iprat 2.5/0.5MG 3 ML AMPUL.NEB INHALE ×2 (02:07→21:01)
[2023-04-06] MEDS: Pantoprazole Sodium 40 MG/10 ML VIAL IVPUSH ×2 (05:39→15:42)
[2023-04-06 07:10] LABS: Hematocrit 29.6 % (42.0-52.0); Mean Corpuscular HGB Conc 30.4 g/dl (31.0-36.0); Mean Corpuscular Hemoglobin 23.7 pg (27.0-33.0); Mean Corpuscular Volume 77.9 fL (80.0-98.0); Mean Platelet Volume 9.7 fL (9.4-12.4); Platelet Count 259 X10*3/uL (160-400); Red Cell Distribution Width 19.9 % (11.0-16.0)
[2023-04-06 07:27] LABS: Anion Gap 9 (12-20); Blood Urea Nitrogen 20 mg/dL (9-16); Calcium 8.3 mg/dL (8.4-10.2); Carbon Dioxide 25 mmol/L (22-29); Chloride 109 mmol/L (96-108); Estimated Glomerular Filt Rate > 60; Glucose Fasting 257 mg/dL (60-99); Potassium 3.8 mmol/L (3.3-5.1); Sodium 139 mmol/L (135-145)
[2023-04-06 07:42] LABS: Glucose, Whole Blood 218 mg/dL (60-115)
[2023-04-06 08:08] LABS: Troponin-I High Sensitivity 1236.3 ng/L (<3.5-35.0)
--- NOTE | 2023-04-06 08:45 | HO.PM.IMPN ---
Subjective Subjective Date of Service: 04/06/23 Interval History: had chest pain yesterday evening, ekg with st depressions in lateral leads, troponin 1300 chest pain now resolved. Physical Exam Vital Signs: Vital Signs: Last Vital Signs Temp 97.0 F 04/06/23 07:18 Pulse 61 04/06/23 07:18 Resp 20 04/06/23 07:18 BP 157/67 H 04/06/23 07:18 Pulse Ox 99 04/06/23 07:18 O2 Del Method Nasal Cannula 04/06/23 07:18 O2 Flow Rate 2 04/06/23 07:18 BMI result Body Mass Index 34.0 GENERAL APPEARANCE: In no acute distress. NECK: no carotid bruit, no obvious jugular venous distention. SKIN: no suspicious lesions, warm and dry. HEART: no murmurs, regular rate and rhythm. LUNGS: Clear to auscultation. ABDOMEN: soft, nontender. EXTREMITIES: no edema. PERIPHERAL PULSES: equal. NEUROLOGIC: No gross deficits, AAO X 3 Objective Data Active Medications Acetaminophen (Acetaminophen 325 Mg Tablet) 650 mg PO Q6H PRN PRN Reason: Pain, Mild (Pain Scale 1-3) Last Admin: 04/05/23 09:31 Dose: 650 mg Documented By: OSVALDO Acetaminophen (Acetaminophen Supp 650 Mg Supp.Rect) 650 mg [place] Q6H PRN PRN Reason: Pain, Mild (Pain Scale 1-3) Dextrose (Dextrose 50 % 25 Gm/50 Ml Syringe) 25 gm IVPUSH Q15M PRN; Protocol PRN Reason: per Hypoglycemia Standing Ord. Furosemide (Furosemide 40 Mg/4 Ml Vial) 40 mg IVPUSH BID@0900,1800 [facility]; Protocol Last Admin: 04/05/23 17:29 Dose: 40 mg Documented By: NGUYỄN Glucose (Glucose Gel 15 Gm Gel..Gram.) 15 gm PO Q15M PRN; Protocol PRN Reason: per Hypoglycemia Standing Ord. Insulin Human Lispro (Insulin Lispro 100 Unit/Ml 3 Ml Vial) 0 unit SUBCUT QIDACHS [facility]; Protocol Last Admin: 04/05/23 20:59 Dose: 8 unit Documented By: NGUYỄN Melatonin (Melatonin 3 Mg Tablet) 6 mg PO BEDTIME PRN PRN Reason: Insomnia Metoprolol Tartrate (Metoprolol Tartrate 25 Mg Tablet) 75 mg PO BID [facility]; Protocol Last Admin: 04/05/23 20:59 Dose: 75 mg Documented By: NGUYỄN Nitroglycerin (Nitroglycerin 0.4 Mg Tab.Subl) 0.4 mg SUBLINGUAL Q5MX3 PRN PRN Reason: Chest Pain Ondansetron HCl (Ondansetron Hcl 4 Mg/2 Ml Vial) 4 mg IVPUSH Q8H PRN PRN Reason: Nausea and Vomiting Last Admin: 04/04/23 01:16 Dose: 4 mg Documented By: MARCO Oxycodone HCl (Oxycodone Hcl Immed Release 5 Mg Tablet) 5 mg PO Q6H PRN PRN Reason: moderate pain Last Admin: 04/05/23 21:06 Dose: 5 mg Documented By: NGUYỄN Pantoprazole Sodium (Pantoprazole Sodium 40 Mg/10 Ml Vial) 40 mg IVPUSH BID@0630,1630 [facility] Last Admin: 04/06/23 05:39 Dose: 40 mg Documented By: BOO Pharmacy Consult (Consult Rx Perform Med Rec) 1 each MISCELLANE ONCE PRN PRN Reason: Consult order Sodium Chloride (0.9 % Sodium Chloride Flush 3 Ml Syringe) 3 ml IVFLUSH QSHIFT [facility] Last Admin: 04/06/23 01:06 Dose: 3 ml Documented By: BOO Tamsulosin HCl (Tamsulosin Hcl 0.4 Mg Capsule) 0.4 mg PO BEDTIME [facility] Last Admin: 04/05/23 20:59 Dose: 0.4 mg Documented By: NGUYỄN Labs 04/06/23 06:59 04/06/23 06:59 Labs: Laboratory Results - last 24 hr 04/05/23 04/05/23 04/05/23 10:48 16:15 17:50 MCV MCH MCHC RDW Plt Count MPV Absolute Nucleated RBC Nucleated RBC % (auto) Anion Gap Estim Creat Clear Calc Estimated GFR POC Glucose 108 179 H Fasting Glucose Calcium Troponin I High Sens 1376.1 H* D 04/05/23 04/05/23 04/06/23 20:09 21:51 06:59 MCV 77.9 L MCH 23.7 L MCHC 30.4 L RDW 19.9 H Plt Count 259 MPV 9.7 Absolute Nucleated RBC 0.000 Nucleated RBC % (auto) 0.0 Anion Gap Estim Creat Clear Calc Estimated GFR POC Glucose 349 H Fasting Glucose Calcium Troponin I High Sens 1072.1 H* 04/06/23 04/06/23 04/06/23 06:59 06:59 07:36 MCV MCH MCHC RDW Plt Count MPV Absolute Nucleated RBC Nucleated RBC % (auto) Anion Gap 9 L Estim Creat Clear Calc 84.0 Estimated GFR > 60 POC Glucose 218 H Fasting Glucose 257 H Calcium 8.3 L Troponin I High Sens 1236.3 H* Assessment and Plan (1) Chronic systolic CHF (congestive heart failure): Status: Acute Plan 72M PMH chronic systolic chf, CAD, paroxysmal afib on eliquis, mood disorder, htn, hld, DM presented with melena acute blood loss anemia due to melena iv ppi, monitor cbc, gi appreciated - plan on egd/sigmoidoscopy holding plavix, eliquis NSTEMI will not tolerate AC or antiplatelet due to gi bleed continue nitropaste, metoprolol acute on chronic systolic chf metoprolol, iv lasix htn metoprolol paroxysmal afib metoprolol holding eliquis cad holding eliquis, plavix DM insulin dvt prophylaxis - mechanical due to gi bleed DNR reason for continued hospitalization:diruesing Time Spent With Patient Time: Total time managing care of this patient today ____ minutes. Quality Stroke Does the patient have a stroke diagnosis?: No VTE Prior VTE?: No VTE Risk Level:: Medical - moderate - high VTE Device Contraindication: N/A - Device Ordered VTE Drug Contraindication: Treatment Not Indicated
[2023-04-06] MEDS: Furosemide 40 MG/4 ML VIAL IVPUSH ×2 (09:35→16:59)
[2023-04-06] MEDS: Metoprolol Tartrate 25 MG TABLET 75 MG PO (09:35)
[2023-04-06 11:02] LABS: Glucose, Whole Blood 245 mg/dL (60-115)
[2023-04-06] MEDS: Insulin Lispro 100 UNIT/ML 3 ML VIAL SUBCUT ×3 (11:58→20:18)
--- NOTE | 2023-04-06 12:29 | MHC.CM.PN ---
EMR REVIEWED, PT W/NSTEMI REMAINS ON IV LASIX, NO PLAN FOR D/C AT THIS TIME, PLAN REMAINS TO RETURN TO [facility] ONCE MEDICALLY CLEARED, CM WILL CONT TO FOLLOW D/C NEEDS.
--- NOTE | 2023-04-06 12:42 | PM.PNCARD ---
Subjective Subjective Date of Service: 04/06/23 Interval history: Seen and examined at bedside. He complained of CP last evening. His HS troponins are elevated >1000. BP was also high. ECG showed subtle ST depressions. Physical Exam Vital Signs: Last Vital Signs Temp 97.6 F 04/06/23 11:18 Pulse 64 04/06/23 11:18 Resp 20 04/06/23 11:18 BP 126/61 04/06/23 11:18 Pulse Ox 98 04/06/23 11:18 O2 Del Method Nasal Cannula 04/06/23 11:18 O2 Flow Rate 2 04/06/23 11:18 BMI result Body Mass Index 34.0 GENERAL APPEARANCE: In no acute distress. NECK: no carotid bruit, no obvious jugular venous distention. SKIN: no suspicious lesions, warm and dry. HEART: no murmurs, regular rate and rhythm. LUNGS: Clear to auscultation. ABDOMEN: soft, nontender. EXTREMITIES: no edema. PERIPHERAL PULSES: equal. NEUROLOGIC: No gross deficits, AAO X 3 Objective Labs and Meds 04/06/23 06:59 04/06/23 06:59 Lab results: Laboratory Results - last 24 hr 04/05/23 04/05/23 04/05/23 16:15 17:50 20:09 WBC RBC Hgb Hct MCV MCH MCHC RDW Plt Count MPV Absolute Nucleated RBC Nucleated RBC % (auto) Sodium Potassium Chloride Carbon Dioxide Anion Gap BUN Creatinine Estim Creat Clear Calc Estimated GFR POC Glucose 179 H 349 H Fasting Glucose Calcium Troponin I High Sens 1376.1 H* D 04/05/23 04/05/23 04/06/23 21:51 21:51 06:59 WBC 7.0 RBC 3.80 L Hgb 9.4 L 9.0 L Hct 30.3 L 29.6 L MCV 77.9 L MCH 23.7 L MCHC 30.4 L RDW 19.9 H Plt Count 259 MPV 9.7 Absolute Nucleated RBC 0.000 Nucleated RBC % (auto) 0.0 Sodium Potassium Chloride Carbon Dioxide Anion Gap BUN Creatinine Estim Creat Clear Calc Estimated GFR POC Glucose Fasting Glucose Calcium Troponin I High Sens 1072.1 H* 04/06/23 04/06/23 04/06/23 06:59 06:59 07:36 WBC RBC Hgb Hct MCV MCH MCHC RDW Plt Count MPV Absolute Nucleated RBC Nucleated RBC % (auto) Sodium 139 Potassium 3.8 Chloride 109 H Carbon Dioxide 25 Anion Gap 9 L BUN 20 H Creatinine 0.99 Estim Creat Clear Calc 84.0 Estimated GFR > 60 POC Glucose 218 H Fasting Glucose 257 H Calcium 8.3 L Troponin I High Sens 1236.3 H* 04/06/23 10:59 WBC RBC Hgb Hct MCV MCH MCHC RDW Plt Count MPV Absolute Nucleated RBC Nucleated RBC % (auto) Sodium Potassium Chloride Carbon Dioxide Anion Gap BUN Creatinine Estim Creat Clear Calc Estimated GFR POC Glucose 245 H Fasting Glucose Calcium Troponin I High Sens Progress Note: A&P Assessment and plan (1) Acute on chronic systolic (congestive) heart failure: Status: Acute (2) Coronary artery disease: Status: Acute (3) GI bleed: Status: Acute (4) Elevated troponin: Status: Acute Plan 72-year-old gentleman with 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 Presented with GI bleed. Off Plavix and apixaban. Was in CHF. Echo showed EF 25 to 30%. Was diuresed and he is improving. He had some right sided CP overnight after eating. He said previously he had central CP before he had NSTEMI. His troponins were checked and they are elevated. It is a challenging situation due to bleeding as he cannot get any anticoagulants. I think he is intermediate to high risk for any procedures. If he cannot get GI work up then would favor starting baby aspirin only for now. Add entresto and change metoprolol to Toprol XL 100 mg. We will follow along with you. Time Spent With Patient Time: Total time managing care of this patient today ____ minutes. Progress Note: Quality Stroke Does the patient have a stroke diagnosis?: No Procedures Date of Service Date of Service: 04/06/23
[2023-04-06 15:30] LABS: Glucose, Whole Blood 280 mg/dL (60-115)
[2023-04-06 19:31] LABS: Glucose, Whole Blood 330 mg/dL (60-115)
[2023-04-06] MEDS: Sacubitril/Valsartan 24/26 1 TAB TABLET PO (20:18)
[2023-04-06] MEDS: Tamsulosin HCL 0.4 MG CAPSULE PO (20:18)
[2023-04-06] MEDS: ondansetron HCL 4 MG/2 ML VIAL IVPUSH (22:11)
[2023-04-07] VITALS (11 sets, daily range): BP systolic 124–197; BP diastolic 57–81; PULSE 65–76; RESP 14–20; TEMP 36–36.6; O2SAT 97–99
--- NOTE | 2023-04-07 | ECG_ITS ---
Test Reason : chest pain Blood Pressure : / mmHG Vent. Rate : 000 BPM Atrial Rate : 000 BPM P-R Int : 000 ms QRS Dur : 000 ms QT Int : 000 ms P-R-T Axes : 000 000 000 degrees QTc Int : 000 ms No QRS complexes found, no ECG analysis possible When compared with ECG of 05-APR-2023 19:04, Current undetermined rhythm precludes rhythm comparison, needs review Referred By: Josefina Fernando Electronically Signed By:
[2023-04-07] MEDS: Pantoprazole Sodium 40 MG/10 ML VIAL IVPUSH (05:54)
[2023-04-07] MEDS: Nitroglycerin 0.4 MG TAB.SUBL SUBLINGUAL ×2 (06:03→06:42)
[2023-04-07 06:40] LABS: Hematocrit 30.2 % (42.0-52.0); Hemoglobin 9.3 g/dl (14.0-18.0); Mean Corpuscular HGB Conc 30.8 g/dl (31.0-36.0); Mean Corpuscular Hemoglobin 23.7 pg (27.0-33.0); Mean Platelet Volume 9.6 fL (9.4-12.4); Platelet Count 283 X10*3/uL (160-400); Red Blood Count 3.92 X10*6/uL (4.60-5.80); Red Cell Distribution Width 19.9 % (11.0-16.0)
--- NOTE | 2023-04-07 06:52 | PC.NURSE ---
0600 hour: RN rounded to bedside for AM med pass. On waking pt c/o 6/10 chest pain indicated in right lateral chest. Vitals obtained showing patient hypertensive. Covering Dr. Fernando notified, orders for trops and EKG. Prn sublingual ntg given x2 after initial dose had reported short-lived effect per patient. Labs drawn and in process at this time. EKG obtained showing NSR with 1st degree AV block with occassional PVCs. Copy tigertexted to Dr. Fernando. Handoff report given 0645.
[2023-04-07 07:00] LABS: Anion Gap 10 (12-20); Blood Urea Nitrogen 16 mg/dL (9-16); Calcium 8.3 mg/dL (8.4-10.2); Carbon Dioxide 26 mmol/L (22-29); Chloride 108 mmol/L (96-108); Creatinine Clr Calc Pharmacy 84.8; Estimated Glomerular Filt Rate > 60; Glucose Fasting 336 mg/dL (60-99); Potassium 4.1 mmol/L (3.3-5.1); Sodium 140 mmol/L (135-145)
[2023-04-07 07:46] LABS: Glucose, Whole Blood 324 mg/dL (60-115)
[2023-04-07] MEDS: Insulin Lispro 100 UNIT/ML 3 ML VIAL SUBCUT ×4 (07:53→21:28)
[2023-04-07] MEDS: Sacubitril/Valsartan 24/26 1 TAB TABLET PO (07:54)
[2023-04-07] MEDS: Aspirin Enteric Coated 81 MG TABLET.DR PO (07:54)
[2023-04-07] MEDS: Furosemide 40 MG/4 ML VIAL IVPUSH ×2 (07:54→18:01)
[2023-04-07] MEDS: 0.9 % Sodium Chloride Flush 3 ML SYRINGE IVFLUSH ×2 (07:55→21:28)
[2023-04-07] MEDS: Metoprolol Succinate ER 100 MG TAB.ER.24H PO (07:55)
[2023-04-07] MEDS: oxyCODONE HCl Immed Release 5 MG TABLET PO ×2 (08:06→16:25)
--- NOTE | 2023-04-07 10:03 | HO.PM.IMPN ---
Subjective Subjective Date of Service: 04/07/23 Interval History: feeling lousy Physical Exam Vital Signs: Vital Signs: Last Vital Signs Temp 97.8 F 04/07/23 07:52 Pulse 74 04/07/23 07:52 Resp 16 04/07/23 07:52 BP 179/72 H 04/07/23 07:52 Pulse Ox 98 04/07/23 07:52 O2 Del Method Nasal Cannula 04/07/23 07:52 O2 Flow Rate 2 04/07/23 07:52 BMI result Body Mass Index 34.0 GENERAL APPEARANCE: In no acute distress. NECK: no carotid bruit, no obvious jugular venous distention. SKIN: no suspicious lesions, warm and dry. HEART: no murmurs, regular rate and rhythm. LUNGS: Clear to auscultation. ABDOMEN: soft, nontender. EXTREMITIES: no edema. PERIPHERAL PULSES: equal. NEUROLOGIC: No gross deficits, AAO X 3 Objective Data Active Medications Acetaminophen (Acetaminophen 325 Mg Tablet) 650 mg PO Q6H PRN PRN Reason: Pain, Mild (Pain Scale 1-3) Last Admin: 04/05/23 09:31 Dose: 650 mg Documented By: OSVALDO Acetaminophen (Acetaminophen Supp 650 Mg Supp.Rect) 650 mg [place] Q6H PRN PRN Reason: Pain, Mild (Pain Scale 1-3) Albuterol/Ipratropium (Albuterol/Iprat 2.5/0.5mg 3 Ml Ampul.Neb) 3 ml INHALE Q4H PRN PRN Reason: Wheezing Last Admin: 04/06/23 21:01 Dose: 3 ml Documented By: AWA Aspirin (Aspirin Enteric Coated 81 Mg Tablet.) 81 mg PO DAILY [facility] Last Admin: 04/07/23 07:54 Dose: 81 mg Documented By: DELMA Dextrose (Dextrose 50 % 25 Gm/50 Ml Syringe) 25 gm IVPUSH Q15M PRN; Protocol PRN Reason: per Hypoglycemia Standing Ord. Furosemide (Furosemide 40 Mg/4 Ml Vial) 40 mg IVPUSH BID@0900,1800 [facility]; Protocol Last Admin: 04/07/23 07:54 Dose: 40 mg Documented By: DELMA Glucose (Glucose Gel 15 Gm Gel..Gram.) 15 gm PO Q15M PRN; Protocol PRN Reason: per Hypoglycemia Standing Ord. Insulin Human Lispro (Insulin Lispro 100 Unit/Ml 3 Ml Vial) 0 unit SUBCUT QIDACHS [facility]; Protocol Last Admin: 04/07/23 07:53 Dose: 8 unit Documented By: DELMA Melatonin (Melatonin 3 Mg Tablet) 6 mg PO BEDTIME PRN PRN Reason: Insomnia Metoprolol Succinate (Metoprolol Succinate Er 100 Mg Tab.Er.24h) 100 mg PO DAILY [facility]; Protocol Last Admin: 04/07/23 07:55 Dose: 100 mg Documented By: DELMA Nitroglycerin (Nitroglycerin 0.4 Mg Tab.Subl) 0.4 mg SUBLINGUAL Q5MX3 PRN PRN Reason: Chest Pain Last Admin: 04/07/23 06:42 Dose: 0.4 mg Documented By: NIKKI Ondansetron HCl (Ondansetron Hcl 4 Mg/2 Ml Vial) 4 mg IVPUSH Q8H PRN PRN Reason: Nausea and Vomiting Last Admin: 04/06/23 22:11 Dose: 4 mg Documented By: SATURNINO Oxycodone HCl (Oxycodone Hcl Immed Release 5 Mg Tablet) 5 mg PO Q6H PRN PRN Reason: moderate pain Last Admin: 04/07/23 08:06 Dose: 5 mg Documented By: DELMA Pharmacy Consult (Consult Rx Perform Med Rec) 1 each MISCELLANE ONCE PRN PRN Reason: Consult order Sacubitril/Valsartan (Sacubitril/Valsartan 1 Tab Tablet) 1 tab PO BID [facility]; Protocol Last Admin: 04/07/23 07:54 Dose: 1 tab Documented By: DELMA Sodium Chloride (0.9 % Sodium Chloride Flush 3 Ml Syringe) 3 ml IVFLUSH QSHIFT [facility] Last Admin: 04/07/23 07:55 Dose: 3 ml Documented By: DELMA Tamsulosin HCl (Tamsulosin Hcl 0.4 Mg Capsule) 0.4 mg PO BEDTIME [facility] Last Admin: 04/06/23 20:18 Dose: 0.4 mg Documented By: NIKKI Labs 04/07/23 06:16 04/07/23 06:16 Labs: Laboratory Results - last 24 hr 04/06/23 04/06/23 04/06/23 10:59 15:26 19:26 MCV MCH MCHC RDW Plt Count MPV Absolute Nucleated RBC Nucleated RBC % (auto) Anion Gap Estim Creat Clear Calc Estimated GFR POC Glucose 245 H 280 H 330 H Fasting Glucose Calcium Troponin I High Sens 04/07/23 04/07/23 04/07/23 06:16 06:16 06:16 MCV 77.0 L MCH 23.7 L MCHC 30.8 L RDW 19.9 H Plt Count 283 MPV 9.6 Absolute Nucleated RBC 0.000 Nucleated RBC % (auto) 0.0 Anion Gap 10 L Estim Creat Clear Calc 84.8 Estimated GFR > 60 POC Glucose Fasting Glucose 336 H Calcium 8.3 L Troponin I High Sens 651.0 H* 04/07/23 07:42 MCV MCH MCHC RDW Plt Count MPV Absolute Nucleated RBC Nucleated RBC % (auto) Anion Gap Estim Creat Clear Calc Estimated GFR POC Glucose 324 H Fasting Glucose Calcium Troponin I High Sens Assessment and Plan (1) Chronic systolic CHF (congestive heart failure): Status: Acute Plan 72M PMH chronic systolic chf, CAD, paroxysmal afib on eliquis, mood disorder, htn, hld, DM presented with melena acute blood loss anemia due to melena iv ppi, monitor cbc, gi appreciated - plan on egd/sigmoidoscopy holding plavix, eliquis (started asa) NSTEMI not treated with AC due to gi bleed continue nitropaste, metoprolol started asa, monitor for bleeding acute on chronic systolic chf metoprolol, iv lasix htn metoprolol paroxysmal afib metoprolol holding eliquis cad holding eliquis, plavix DM insulin dvt prophylaxis - mechanical due to gi bleed DNR reason for continued hospitalization:diuresing Time Spent With Patient Time: Total time managing care of this patient today ____ minutes. Quality Stroke Does the patient have a stroke diagnosis?: No VTE Prior VTE?: No VTE Risk Level:: Medical - moderate - high VTE Device Contraindication: N/A - Device Ordered VTE Drug Contraindication: Treatment Not Indicated
[2023-04-07 11:20] LABS: Glucose, Whole Blood 382 mg/dL (60-115)
[2023-04-07] MEDS: Isosorbide Mononitrate 60 MG TAB.ER.24H PO (13:01)
[2023-04-07 15:54] LABS: Glucose, Whole Blood 345 mg/dL (60-115)
--- NOTE | 2023-04-07 17:45 | PC.NURSE ---
small amount of sona rectal blood noted upon washing. Pt stated he had recently passed gas, not had a BM. MD alerted, will monitor
[2023-04-07 19:36] LABS: Glucose, Whole Blood 274 mg/dL (60-115)
[2023-04-07] MEDS: Sacubitril/Valsartan 49/51 1 TAB TABLET PO (21:28)
[2023-04-07] MEDS: Melatonin 3 MG TABLET 6 MG PO (21:28)
[2023-04-07] MEDS: Tamsulosin HCL 0.4 MG CAPSULE PO (21:28)
[2023-04-08] VITALS (10 sets, daily range): BP systolic 120–207; BP diastolic 54–79; PULSE 63–79; RESP 15–20; TEMP 36.2–37.1; O2SAT 94–98
--- NOTE | 2023-04-08 | ECG_ITS ---
Test Reason : Chest pain Blood Pressure : / mmHG Vent. Rate : 077 BPM Atrial Rate : 077 BPM P-R Int : 228 ms QRS Dur : 096 ms QT Int : 452 ms P-R-T Axes : 097 -11 184 degrees QTc Int : 511 ms Sinus rhythm with 1st degree A-V block Nonspecific ST and T wave abnormality Prolonged QT Abnormal ECG When compared with ECG of 07-APR-2023 06:42, Premature ventricular complexes are no longer Present Referred By: Abdias Vargas Electronically Signed By:Eris Agustin
[2023-04-08 06:47] LABS: Hematocrit 29.7 % (42.0-52.0); Hemoglobin 9.2 g/dl (14.0-18.0); Mean Corpuscular Hemoglobin 23.8 pg (27.0-33.0); Mean Corpuscular Volume 76.9 fL (80.0-98.0); Platelet Count 290 X10*3/uL (160-400); Red Blood Count 3.86 X10*6/uL (4.60-5.80); Red Cell Distribution Width 19.7 % (11.0-16.0)
[2023-04-08 07:21] LABS: Anion Gap 12 (12-20); Blood Urea Nitrogen 16 mg/dL (9-16); Calcium 8.3 mg/dL (8.4-10.2); Carbon Dioxide 23 mmol/L (22-29); Chloride 104 mmol/L (96-108); Creatinine Clr Calc Pharmacy 94.5; Estimated Glomerular Filt Rate > 60; Glucose Fasting 401 mg/dL (60-99); Potassium 3.8 mmol/L (3.3-5.1); Sodium 135 mmol/L (135-145)
[2023-04-08] MEDS: Nitroglycerin 0.4 MG TAB.SUBL SUBLINGUAL ×3 (07:38→07:49)
[2023-04-08 07:50] LABS: Glucose, Whole Blood 375 mg/dL (60-115)
[2023-04-08] MEDS: oxyCODONE HCl Immed Release 5 MG TABLET PO (07:53)
[2023-04-08] MEDS: Isosorbide Mononitrate 60 MG TAB.ER.24H PO (08:04)
[2023-04-08] MEDS: Albuterol/Iprat 2.5/0.5MG 3 ML AMPUL.NEB INHALE (08:04)
[2023-04-08] MEDS: Sacubitril/Valsartan 49/51 1 TAB TABLET PO ×2 (08:04→20:39)
[2023-04-08] MEDS: Furosemide 40 MG/4 ML VIAL IVPUSH (08:05)
[2023-04-08] MEDS: Insulin Lispro 100 UNIT/ML 3 ML VIAL SUBCUT ×5 (08:05→20:40)
[2023-04-08] MEDS: Aspirin Enteric Coated 81 MG TABLET.DR PO (08:05)
[2023-04-08] MEDS: Metoprolol Succinate ER 100 MG TAB.ER.24H PO (08:05)
[2023-04-08] MEDS: 0.9 % Sodium Chloride Flush 3 ML SYRINGE IVFLUSH ×3 (08:06→20:40)
[2023-04-08 09:03] LABS: Troponin-I High Sensitivity 448.8 ng/L (<3.5-35.0)
--- NOTE | 2023-04-08 09:11 | P.PNIM_ITS ---
Subjective Subjective Date of Service: 04/08/23 Interval History: ongoing chest pain, sob Physical Exam Vital Signs: Vital Signs: Last Vital Signs Temp 97.3 F 04/08/23 07:39 Pulse 79 04/08/23 08:05 Resp 20 04/08/23 08:05 BP 173/74 H 04/08/23 07:49 Pulse Ox 98 04/08/23 07:39 O2 Del Method Nasal Cannula 04/08/23 07:39 O2 Flow Rate 2 04/08/23 07:39 BMI result Body Mass Index 34.0 GENERAL APPEARANCE: In no acute distress. NECK: no carotid bruit, no obvious jugular venous distention. SKIN: no suspicious lesions, warm and dry. HEART: no murmurs, regular rate and rhythm. LUNGS: Clear to auscultation. ABDOMEN: soft, nontender. EXTREMITIES: no edema. PERIPHERAL PULSES: equal. NEUROLOGIC: No gross deficits, AAO X 3 Objective Data Active Medications Acetaminophen (Acetaminophen 325 Mg Tablet) 650 mg PO Q6H PRN PRN Reason: Pain, Mild (Pain Scale 1-3) Last Admin: 04/05/23 09:31 Dose: 650 mg Documented By: OSVALDO Acetaminophen (Acetaminophen Supp 650 Mg Supp.Rect) 650 mg [place] Q6H PRN PRN Reason: Pain, Mild (Pain Scale 1-3) Albuterol/Ipratropium (Albuterol/Iprat 2.5/0.5mg 3 Ml Ampul.Neb) 3 ml INHALE Q4H PRN PRN Reason: Wheezing Last Admin: 04/08/23 08:04 Dose: 3 ml Documented By: AMINTA Aspirin (Aspirin Enteric Coated 81 Mg Tablet.) 81 mg PO DAILY [facility] Last Admin: 04/08/23 08:05 Dose: 81 mg Documented By: TULIO Dextrose (Dextrose 50 % 25 Gm/50 Ml Syringe) 25 gm IVPUSH Q15M PRN; Protocol PRN Reason: per Hypoglycemia Standing Ord. Furosemide (Furosemide 40 Mg/4 Ml Vial) 40 mg IVPUSH BID@0900,1800 [facility]; Protocol Last Admin: 04/08/23 08:05 Dose: 40 mg Documented By: TULIO Glucose (Glucose Gel 15 Gm Gel..Gram.) 15 gm PO Q15M PRN; Protocol PRN Reason: per Hypoglycemia Standing Ord. Insulin Human Lispro (Insulin Lispro 100 Unit/Ml 3 Ml Vial) 0 unit SUBCUT QIDACHS [facility]; Protocol Last Admin: 04/08/23 08:05 Dose: 10 unit Documented By: TULIO Isosorbide Mononitrate (Isosorbide Mononitrate 60 Mg Tab.Er.24h) 60 mg PO DAILY [facility]; Protocol Last Admin: 04/08/23 08:04 Dose: 60 mg Documented By: TULIO Melatonin (Melatonin 3 Mg Tablet) 6 mg PO BEDTIME PRN PRN Reason: Insomnia Last Admin: 04/07/23 21:28 Dose: 6 mg Documented By: NIKKI Metoprolol Succinate (Metoprolol Succinate Er 100 Mg Tab.Er.24h) 100 mg PO DAILY [facility]; Protocol Last Admin: 04/08/23 08:05 Dose: 100 mg Documented By: TULIO Nitroglycerin (Nitroglycerin 0.4 Mg Tab.Subl) 0.4 mg SUBLINGUAL Q5MX3 PRN PRN Reason: Chest Pain Last Admin: 04/08/23 07:49 Dose: 0.4 mg Documented By: TULIO Ondansetron HCl (Ondansetron Hcl 4 Mg/2 Ml Vial) 4 mg IVPUSH Q8H PRN PRN Reason: Nausea and Vomiting Last Admin: 04/06/23 22:11 Dose: 4 mg Documented By: SATURNINO Oxycodone HCl (Oxycodone Hcl Immed Release 5 Mg Tablet) 5 mg PO Q6H PRN PRN Reason: moderate pain Last Admin: 04/08/23 07:53 Dose: 5 mg Documented By: TULIO Pharmacy Consult (Consult Rx Perform Med Rec) 1 each MISCELLANE ONCE PRN PRN Reason: Consult order Sacubitril/Valsartan (Sacubitril/Valsartan 49/51 1 Tab Tablet) 1 tab PO BID [facility]; Protocol Last Admin: 04/08/23 08:04 Dose: 1 tab Documented By: TULIO Sodium Chloride (0.9 % Sodium Chloride Flush 3 Ml Syringe) 3 ml IVFLUSH [facility] Last Admin: 04/08/23 08:06 Dose: 3 ml Documented By: TULIO Tamsulosin HCl (Tamsulosin Hcl 0.4 Mg Capsule) 0.4 mg PO BEDTIME [facility] Last Admin: 04/07/23 21:28 Dose: 0.4 mg Documented By: NIKKI Labs 04/08/23 06:31 04/08/23 06:31 Labs: Laboratory Results - last 24 hr 04/07/23 04/07/23 04/07/23 11:14 15:45 19:20 MCV MCH MCHC RDW Plt Count MPV Absolute Nucleated RBC Nucleated RBC % (auto) Anion Gap Estim Creat Clear Calc Estimated GFR POC Glucose 382 H* 345 H 274 H Fasting Glucose Calcium Troponin I High Sens 04/08/23 04/08/23 04/08/23 06:31 06:31 07:38 MCV 76.9 L MCH 23.8 L MCHC 31.0 RDW 19.7 H Plt Count 290 MPV 10.0 Absolute Nucleated RBC 0.000 Nucleated RBC % (auto) 0.0 Anion Gap 12 Estim Creat Clear Calc 94.5 Estimated GFR > 60 POC Glucose 375 H* Fasting Glucose 401 H* Calcium 8.3 L Troponin I High Sens 04/08/23 08:16 MCV MCH MCHC RDW Plt Count MPV Absolute Nucleated RBC Nucleated RBC % (auto) Anion Gap Estim Creat Clear Calc Estimated GFR POC Glucose Fasting Glucose Calcium Troponin I High Sens 448.8 H* Assessment and Plan (1) Chronic systolic CHF (congestive heart failure): Status: Acute Plan 72M PMH chronic systolic chf, CAD, paroxysmal afib on eliquis, mood disorder, htn, hld, DM presented with melena acute blood loss anemia due to melena now on po ppi, monitor cbc - stable, gi appreciated - egd/sigmoidoscopy deferred due to high risk for anasthesia holding plavix, eliquis (started asa) NSTEMI not treated with AC due to gi bleed continue nitro, metoprolol started asa, monitor for bleeding acute on chronic systolic chf metoprolol, change to bumex iv htn metoprolol paroxysmal afib metoprolol holding eliquis cad holding eliquis, plavix DM insulin dvt prophylaxis - mechanical due to gi bleed DNR reason for continued hospitalization:diuresing Time Spent With Patient Time: Total time managing care of this patient today ____ minutes. Quality Stroke Does the patient have a stroke diagnosis?: No VTE Prior VTE?: No VTE Risk Level:: Medical - moderate - high VTE Device Contraindication: N/A - Device Ordered VTE Drug Contraindication: Treatment Not Indicated
[2023-04-08 11:24] LABS: Glucose, Whole Blood 422 mg/dL (60-115)
--- NOTE | 2023-04-08 12:03 | PM.PNCARD ---
Subjective Subjective Date of Service: 04/08/23 Interval history: Seen and examined at bedside. He is saying that he feels drain and has no energy. He also is coughing and mildly wheezy. He is experiencing some chest pain with coughing and breathing in. He also had some pressure-like feeling earlier today. He has significantly elevated blood pressure documented today morning. Blood pressure is improved at this stage with medications. Physical Exam Vital Signs: Last Vital Signs Temp 98.7 F 04/08/23 11:47 Pulse 75 04/08/23 11:47 Resp 20 04/08/23 11:47 BP 137/65 04/08/23 11:47 Pulse Ox 97 04/08/23 11:47 O2 Del Method Nasal Cannula 04/08/23 11:47 O2 Flow Rate 2 04/08/23 11:47 BMI result Body Mass Index 34.0 GENERAL APPEARANCE: Looks pale and fatigued. NECK: no carotid bruit, no obvious jugular venous distention. SKIN: no suspicious lesions, warm and dry. HEART: no murmurs, regular rate and rhythm. LUNGS: Mild expiratory wheezes. ABDOMEN: soft, nontender. EXTREMITIES: no edema. PERIPHERAL PULSES: equal. NEUROLOGIC: No gross deficits, AAO X 3 Objective Labs and Meds 04/08/23 06:31 04/08/23 06:31 Lab results: Laboratory Results - last 24 hr 04/07/23 04/07/23 04/08/23 15:45 19:20 06:31 WBC 8.0 RBC 3.86 L Hgb 9.2 L Hct 29.7 L MCV 76.9 L MCH 23.8 L MCHC 31.0 RDW 19.7 H Plt Count 290 MPV 10.0 Absolute Nucleated RBC 0.000 Nucleated RBC % (auto) 0.0 Sodium Potassium Chloride Carbon Dioxide Anion Gap BUN Creatinine Estim Creat Clear Calc Estimated GFR POC Glucose 345 H 274 H Fasting Glucose Calcium Troponin I High Sens 04/08/23 04/08/23 04/08/23 06:31 07:38 08:16 WBC RBC Hgb Hct MCV MCH MCHC RDW Plt Count MPV Absolute Nucleated RBC Nucleated RBC % (auto) Sodium 135 Potassium 3.8 Chloride 104 Carbon Dioxide 23 Anion Gap 12 BUN 16 Creatinine 0.88 Estim Creat Clear Calc 94.5 Estimated GFR > 60 POC Glucose 375 H* Fasting Glucose 401 H* Calcium 8.3 L Troponin I High Sens 448.8 H* 04/08/23 11:18 WBC RBC Hgb Hct MCV MCH MCHC RDW Plt Count MPV Absolute Nucleated RBC Nucleated RBC % (auto) Sodium Potassium Chloride Carbon Dioxide Anion Gap BUN Creatinine Estim Creat Clear Calc Estimated GFR POC Glucose 422 H* Fasting Glucose Calcium Troponin I High Sens Progress Note: A&P Assessment and plan (1) Acute on chronic systolic (congestive) heart failure: Status: Acute (2) Coronary artery disease: Status: Acute Plan [age] gentleman with complex medical and cardiovascular issues. He had previous anterior wall PR with cardiomyopathy and subsequently had ventricular tachycardia leading to ICD placement. He also had OM PCI in June 2022 for NSTEMI. Echocardiography is showing EF 25 30%. He has concern for moderate to severe aortic valve stenosis to. He has presented to us with GI bleed and was being considered for endoscopy but was complaining of some chest pains and ruled in for NSTEMI. Difficult to say whether troponin elevation was due to congestive heart failure as he was quite overloaded initially and was quite symptomatic 2. In any case he was diuresed and started on guideline directed medical therapy and overall stabilized. Today his blood pressure was elevated and he was complaining of some chest discomfort but also feels very weak and fatigued. He also is coughing and has some chest pain with cough. I think we should do a chest x-ray to rule out any pneumonia. I think his management currently is conservative. Unfortunately with the combination of ischemia and GI bleed options are limited. He has been started on baby aspirin. If he is stable and hemoglobin is stable then a trial of heparin can be done to see if he can tolerate anticoagulation in that case he can be started on Eliquis. Thank you for allowing me to participate in the care of your patient. Please feel free to contact me if you have any questions. Time Spent With Patient Time: Total time managing care of this patient today ____ minutes. Progress Note: Quality Stroke Does the patient have a stroke diagnosis?: No Procedures Date of Service Date of Service: 04/08/23
[2023-04-08 15:55] LABS: Glucose, Whole Blood 422 mg/dL (60-115)
--- NOTE | 2023-04-08 16:01 | PC.NURSE ---
at 7:20 am, patient reported 9/10 chest pain sternal,l sharp, unchanged on palpation, worse on deep inspiration, worse with cough, nonradiating. BP 120/58 up to 207/79, s/p three doses of nitro SL and F/U BP 173/74 HR steady at 81-93 now. Reported he was having trouble breathing: hard to breathe in. His SpO2 is 97% on 2 LPM. Exp/insp wheezez troughout, notified and at bedside, EKG checked and reviewed by MD as no changes, troponins checked and 400's, down from 600's. Critical Glu this morning 401, MD notified and POC again over 400 at lunch, notified, new orders for lantus and one time 5 units extra lispro. Patient denies chest pain on recheck.
[2023-04-08] MEDS: Bumetanide 1 MG TABLET PO (16:02)
[2023-04-08 19:35] LABS: Glucose, Whole Blood 327 mg/dL (60-115)
[2023-04-08] MEDS: Melatonin 3 MG TABLET 6 MG PO (20:39)
[2023-04-08] MEDS: Tamsulosin HCL 0.4 MG CAPSULE PO (20:39)
[2023-04-08] MEDS: Insulin Glargine,Hum.rec.anlog 100 UNIT/ML 10 ML VIAL 35 UNIT SUBCUT (20:40)
[2023-04-09 03:37] VITALS: BP 170/75; PULSE 60; RESP 18; TEMP 36; O2SAT 91
[2023-04-09] MEDS: Omeprazole 20 MG CAPSULE.DR PO (05:32)
[2023-04-09 06:27] LABS: Hematocrit 30.8 % (42.0-52.0); Hemoglobin 9.5 g/dl (14.0-18.0); Mean Corpuscular HGB Conc 30.8 g/dl (31.0-36.0); Mean Corpuscular Hemoglobin 23.6 pg (27.0-33.0); Mean Corpuscular Volume 76.4 fL (80.0-98.0); Platelet Count 299 X10*3/uL (160-400); Red Blood Count 4.03 X10*6/uL (4.60-5.80); Red Cell Distribution Width 19.2 % (11.0-16.0); White Blood Count 7.5 X10*3/uL (4.8-10.8)
[2023-04-09] MEDS: oxyCODONE HCl Immed Release 5 MG TABLET PO ×3 (06:47→14:30)
[2023-04-09 07:08] LABS: Glucose, Whole Blood 373 mg/dL (60-115)
[2023-04-09 07:16] VITALS: BP 176/72; PULSE 63; RESP 18; TEMP 36.3; O2SAT 97
[2023-04-09 07:16] LABS: Anion Gap 11 (12-20); Blood Urea Nitrogen 20 mg/dL (9-16); Calcium 8.2 mg/dL (8.4-10.2); Carbon Dioxide 24 mmol/L (22-29); Chloride 103 mmol/L (96-108); Creatinine Clr Calc Pharmacy 87.5; Estimated Glomerular Filt Rate > 60; Glucose Fasting 378 mg/dL (60-99); Potassium 3.6 mmol/L (3.3-5.1); Sodium 134 mmol/L (135-145)
[2023-04-09] MEDS: Acetaminophen 325 MG TABLET 650 MG PO (07:59)
[2023-04-09] MEDS: Aspirin Enteric Coated 81 MG TABLET.DR PO (07:59)
[2023-04-09] MEDS: Isosorbide Mononitrate 60 MG TAB.ER.24H PO (07:59)
[2023-04-09] MEDS: Sacubitril/Valsartan 49/51 1 TAB TABLET PO ×2 (07:59→21:11)
[2023-04-09] MEDS: Insulin Glargine,Hum.rec.anlog 100 UNIT/ML 10 ML VIAL 35 UNIT SUBCUT ×2 (08:00→21:14)
[2023-04-09] MEDS: Metoprolol Succinate ER 100 MG TAB.ER.24H PO (08:00)
[2023-04-09] MEDS: Insulin Lispro 100 UNIT/ML 3 ML VIAL SUBCUT ×4 (08:01→21:14)
[2023-04-09] MEDS: 0.9 % Sodium Chloride Flush 3 ML SYRINGE IVFLUSH ×3 (08:02→21:12)
[2023-04-09] MEDS: Bumetanide 1 MG TABLET PO ×2 (08:09→17:00)
--- NOTE | 2023-04-09 08:35 | HO.PM.IMPN ---
Subjective Subjective Date of Service: 04/09/23 Interval History: diarrhea Physical Exam Vital Signs: Vital Signs: Last Vital Signs Temp 97.3 F 04/09/23 07:16 Pulse 63 04/09/23 07:16 Resp 18 04/09/23 07:16 BP 176/72 H 04/09/23 07:16 Pulse Ox 97 04/09/23 07:16 O2 Del Method Nasal Cannula 04/09/23 07:16 O2 Flow Rate 2 04/09/23 07:16 BMI result Body Mass Index 34.0 GENERAL APPEARANCE: Looks pale and fatigued. NECK: no carotid bruit, no obvious jugular venous distention. SKIN: no suspicious lesions, warm and dry. HEART: no murmurs, regular rate and rhythm. LUNGS: Mild expiratory wheezes. ABDOMEN: soft, nontender. EXTREMITIES: no edema. PERIPHERAL PULSES: equal. NEUROLOGIC: No gross deficits, AAO X 3 Objective Data Active Medications Acetaminophen (Acetaminophen 325 Mg Tablet) 650 mg PO Q6H PRN PRN Reason: Pain, Mild (Pain Scale 1-3) Last Admin: 04/09/23 07:59 Dose: 650 mg Documented By: JULISSA Acetaminophen (Acetaminophen Supp 650 Mg Supp.Rect) 650 mg TN Q6H PRN PRN Reason: Pain, Mild (Pain Scale 1-3) Albuterol/Ipratropium (Albuterol/Iprat 2.5/0.5mg 3 Ml Ampul.Neb) 3 ml INHALE Q4H PRN PRN Reason: Wheezing Last Admin: 04/08/23 08:04 Dose: 3 ml Documented By: AMINTA Aspirin (Aspirin Enteric Coated 81 Mg Tablet.) 81 mg PO DAILY [facility] Last Admin: 04/09/23 07:59 Dose: 81 mg Documented By: JULISSA Bumetanide (Bumetanide 1 Mg Tablet) 1 mg PO BID@0800,1700 [facility]; Protocol Last Admin: 04/09/23 08:09 Dose: 1 mg Documented By: JULISSA Dextrose (Dextrose 50 % 25 Gm/50 Ml Syringe) 25 gm IVPUSH Q15M PRN; Protocol PRN Reason: per Hypoglycemia Standing Ord. Glucose (Glucose Gel 15 Gm Gel..Gram.) 15 gm PO Q15M PRN; Protocol PRN Reason: per Hypoglycemia Standing Ord. Insulin Glargine (Insulin Glargine,Hum.Rec.Anlog 100 Unit/Ml 10 Ml Vial) 35 unit SUBCUT BID [facility] Last Admin: 04/09/23 08:00 Dose: 35 unit Documented By: JULISSA Insulin Human Lispro (Insulin Lispro 100 Unit/Ml 3 Ml Vial) 0 unit SUBCUT QIDACHS [facility]; Protocol Last Admin: 04/09/23 08:01 Dose: 10 unit Documented By: JULISSA Isosorbide Mononitrate (Isosorbide Mononitrate 60 Mg Tab.Er.24h) 60 mg PO DAILY [facility]; Protocol Last Admin: 04/09/23 07:59 Dose: 60 mg Documented By: JULISSA Melatonin (Melatonin 3 Mg Tablet) 6 mg PO BEDTIME PRN PRN Reason: Insomnia Last Admin: 04/08/23 20:39 Dose: 6 mg Documented By: SATURNINO Metoprolol Succinate (Metoprolol Succinate Er 100 Mg Tab.Er.24h) 100 mg PO DAILY [facility]; Protocol Last Admin: 04/09/23 08:00 Dose: 100 mg Documented By: JULISSA Nitroglycerin (Nitroglycerin 0.4 Mg Tab.Subl) 0.4 mg SUBLINGUAL Q5MX3 PRN PRN Reason: Chest Pain Last Admin: 04/08/23 07:49 Dose: 0.4 mg Documented By: TULIO Omeprazole (Omeprazole 20 Mg Capsule.Dr) 20 mg PO DAILY@0630 [facility] Last Admin: 04/09/23 05:32 Dose: 20 mg Documented By: SATURNINO Ondansetron HCl (Ondansetron Hcl 4 Mg/2 Ml Vial) 4 mg IVPUSH Q8H PRN PRN Reason: Nausea and Vomiting Last Admin: 04/06/23 22:11 Dose: 4 mg Documented By: SATURNINO Oxycodone HCl (Oxycodone Hcl Immed Release 5 Mg Tablet) 5 mg PO Q6H PRN PRN Reason: moderate pain Last Admin: 04/09/23 06:47 Dose: 5 mg Documented By: SATURNINO Pharmacy Consult (Consult Rx Perform Med Rec) 1 each MISCELLANE ONCE PRN PRN Reason: Consult order Sacubitril/Valsartan (Sacubitril/Valsartan 49/51 1 Tab Tablet) 1 tab PO BID GARCIA; Protocol Last Admin: 04/09/23 07:59 Dose: 1 tab Documented By: JULISSA Sodium Chloride (0.9 % Sodium Chloride Flush 3 Ml Syringe) 3 ml IVFLUSH QSHIFT [facility] Last Admin: 04/09/23 08:02 Dose: 3 ml Documented By: JULISSA Tamsulosin HCl (Tamsulosin Hcl 0.4 Mg Capsule) 0.4 mg PO BEDTIME [facility] Last Admin: 04/08/23 20:39 Dose: 0.4 mg Documented By: SATURNINO Labs 04/09/23 06:00 04/09/23 06:00 Labs: Laboratory Results - last 24 hr 04/08/23 04/08/23 04/08/23 08:16 11:18 15:40 MCV MCH MCHC RDW Plt Count MPV Absolute Nucleated RBC Nucleated RBC % (auto) Anion Gap Estim Creat Clear Calc Estimated GFR POC Glucose 422 H* 422 H* Fasting Glucose Calcium Troponin I High Sens 448.8 H* 04/08/23 04/09/23 04/09/23 19:20 06:00 06:00 MCV 76.4 L MCH 23.6 L MCHC 30.8 L RDW 19.2 H Plt Count 299 MPV 10.0 Absolute Nucleated RBC 0.000 Nucleated RBC % (auto) 0.0 Anion Gap 11 L Estim Creat Clear Calc 87.5 Estimated GFR > 60 POC Glucose 327 H Fasting Glucose 378 H* Calcium 8.2 L Troponin I High Sens 04/09/23 06:58 MCV MCH MCHC RDW Plt Count MPV Absolute Nucleated RBC Nucleated RBC % (auto) Anion Gap Estim Creat Clear Calc Estimated GFR POC Glucose 373 H* Fasting Glucose Calcium Troponin I High Sens Assessment and Plan (1) Chronic systolic CHF (congestive heart failure): Status: Acute Plan 72M PMH chronic systolic chf, CAD, paroxysmal afib on eliquis, mood disorder, htn, hld, DM presented with melena acute blood loss anemia due to melena now on po ppi, monitor cbc - stable, gi appreciated - egd/sigmoidoscopy deferred due to high risk for anasthesia holding plavix, eliquis NSTEMI not treated with AC due to gi bleed continue nitro, metoprolol diarrhea check stool pcr if negative - imdium acute on chronic systolic chf metoprolol, change to bumex po 1mg bid htn metoprolol paroxysmal afib metoprolol holding eliquis will challenge with iv heparin, monitor closely cad start iv heparin DM insulin dvt prophylaxis - mechanical due to gi bleed DNR reason for continued hospitalization:diarrhea Time Spent With Patient Time: Total time managing care of this patient today ____ minutes. Quality Stroke Does the patient have a stroke diagnosis?: No VTE Prior VTE?: No VTE Risk Level:: Medical - moderate - high VTE Device Contraindication: N/A - Device Ordered VTE Drug Contraindication: Treatment Not Indicated
[2023-04-09 09:13] VITALS: BMI 34.1
[2023-04-09 10:09] LABS: Prothrombin Time 11.7 SEC (10.0-13.1)
[2023-04-09 10:12] LABS: PTT Heparin Drip 25.8 SEC (53-77.9)
--- NOTE | 2023-04-09 10:46 | PC.NURSE ---
MD notified of signs of bleeding in urine. Per hospitalist MD, pt to be trialed on a heparin gtt to see if he can be transitioned back to his home eliquis dose. Cardioloy saw pt at bedside. Cardio MD advised hold heparin. Hospitalist and pharmacy notified. Awaiting instruction. This RN will pass on to next RN at 11:00 assignment change.
[2023-04-09 10:52] LABS: Appearance Urine Turbid; Color Urine RED; Glucose Urine UA 250 mg/dL (Negative); Leukocyte Esterase Urine Moderate (2+) (Negative); Nitrite Urine Negative (Negative); PH 6.5 (5.0-9.0); UMIC TRIGGER UACC YES; Urine Blood Large (3+) (Negative); Urine Ketones Negative (Negative); Urine Protein 100 (2+) mg/dL (Neg-Trace)
[2023-04-09 11:06] LABS: Bacteria Urine 1+ (None Seen); RBC Urine >20 /HPF (0-2); Squamous Epithelial Cell Urine 0-2 /HPF (0-2); UACC Culture Trigger YES
[2023-04-09 11:07] LABS: WBC Urine 21-50 /HPF (0-5)
--- NOTE | 2023-04-09 11:32 | MHC.CM.PN ---
EMR REVIEWED, PT W/ACUTE BLOOD LOSS ANEMIA, NSTEMI, ETC. PER HOSPITALIST PLAN TO START PT ON HEPARIN IV, NO PLAN FOR D/C AT THIS TIME, PLAN WILL BE FOR PT TO RETURN TO [facility] ON D/C, CM WILL CONT TO FOLLOW W/C NEEDS.
[2023-04-09 11:33] LABS: Glucose, Whole Blood 396 mg/dL (60-115)
--- NOTE | 2023-04-09 11:34 | PM.PNCARD ---
Subjective Subjective Date of Service: 04/09/23 Principal diagnosis: Ischemic cardiomyopathy, atrial fibrillation Interval history: Patient complain a lot of pain in his groin area. He also was noted to have some blood in the urine. Unclear where that came from the urine of from the wound in the groin. No obvious melena. His hematocrit is stable. Denies any shortness of breath. His main concern is currently pain in his groin area. He denies any orthopnea, PND, chest pain today. IV heparin has not been started as yet. Blood pressure is elevated Review of Systems Constitutional: Reports no additional constitutional complaints Cardiovascular: Reports no additional cardiovascular complaints Genitourinary: Reports other (Pain in the groin) Reports system reviewed and no additional complaints, except as documented Physical Exam Vital Signs: Last Vital Signs Temp 97.3 F 04/09/23 07:16 Pulse 63 04/09/23 07:16 Resp 18 04/09/23 07:16 BP 176/72 H 04/09/23 07:16 Pulse Ox 97 04/09/23 07:16 O2 Del Method Nasal Cannula 04/09/23 07:16 O2 Flow Rate 2 04/09/23 07:16 BMI result Body Mass Index 34.1 GENERAL APPEARANCE: Looks pale and fatigued. NECK: no carotid bruit, no obvious jugular venous distention. SKIN: no suspicious lesions, warm and dry. HEART: no murmurs, regular rate and rhythm. LUNGS: Mild expiratory wheezes. ABDOMEN: soft, nontender. EXTREMITIES: no edema. PERIPHERAL PULSES: equal. NEUROLOGIC: No gross deficits, AAO X 3 Cardio Heart sounds: Murmur heart sound present systolic late Objective Labs and Meds 04/09/23 06:00 04/09/23 06:00 Lab results: Laboratory Results - last 24 hr 04/08/23 04/08/23 04/09/23 15:40 19:20 06:00 WBC 7.5 RBC 4.03 L Hgb 9.5 L Hct 30.8 L MCV 76.4 L MCH 23.6 L MCHC 30.8 L RDW 19.2 H Plt Count 299 MPV 10.0 Absolute Nucleated RBC 0.000 Nucleated RBC % (auto) 0.0 PT INR aPTT Heparin Protocol Sodium Potassium Chloride Carbon Dioxide Anion Gap BUN Creatinine Estim Creat Clear Calc Estimated GFR POC Glucose 422 H* 327 H Fasting Glucose Calcium Urine Color Urine Appearance Urine pH Ur Specific [place] Urine Protein Urine Glucose (UA) Urine Ketones Urine Blood Urine Nitrite Ur Leukocyte Esterase Urine RBC Urine WBC Ur Squamous Epith Cells Urine Bacteria Hyaline Casts 04/09/23 04/09/23 04/09/23 06:00 06:58 09:47 WBC RBC Hgb Hct MCV MCH MCHC RDW Plt Count MPV Absolute Nucleated RBC Nucleated RBC % (auto) PT 11.7 INR 1.0 aPTT Heparin Protocol 25.8 L Sodium 134 L Potassium 3.6 Chloride 103 Carbon Dioxide 24 Anion Gap 11 L BUN 20 H Creatinine 0.95 Estim Creat Clear Calc 87.5 Estimated GFR > 60 POC Glucose 373 H* Fasting Glucose 378 H* Calcium 8.2 L Urine Color Urine Appearance Urine pH Ur Specific [place] Urine Protein Urine Glucose (UA) Urine Ketones Urine Blood Urine Nitrite Ur Leukocyte Esterase Urine RBC Urine WBC Ur Squamous Epith Cells Urine Bacteria Hyaline Casts 04/09/23 04/09/23 04/09/23 09:47 10:30 11:30 WBC RBC Hgb Hct MCV MCH MCHC RDW Plt Count MPV Absolute Nucleated RBC Nucleated RBC % (auto) PT INR aPTT Heparin Protocol Cancelled Sodium Potassium Chloride Carbon Dioxide Anion Gap BUN Creatinine Estim Creat Clear Calc Estimated GFR POC Glucose 396 H* Fasting Glucose Calcium Urine Color RED Urine Appearance Turbid Urine pH 6.5 Ur Specific [place] 1.020 Urine Protein 100 (2+) H Urine Glucose (UA) 250 H Urine Ketones Negative Urine Blood Large (3+) H Urine Nitrite Negative Ur Leukocyte Esterase Moderate (2+) H Urine RBC >20 H Urine WBC 21-50 Ur Squamous Epith Cells 0-2 Urine Bacteria 1+ Hyaline Casts 3-5 Imaging Radiologist's impression: Impressions Chest X-Ray 04/08/23 12:35 IMPRESSION: No evidence for acute disease in the chest. Progress Note: A&P Assessment and plan (1) Paroxysmal atrial fibrillation: Status: Acute Assessment and Plan: Paroxysmal atrial fibrillation, patient admitted with acute GI bleed. However hemoglobin hematocrit has remained stable. Decision is being made to avoid invasive GI procedure at this point in time given his active chest pain rising troponins as well as severe ischemic cardiomyopathy and possibly severe aortic stenosis. Agree with it. If he has recurrent bleeding, may require GI procedure with high risk for perioperative cardiovascular morbidity mortality and would consider this to be done in a tertiary care center. Hold off on oral anticoagulation therapy. 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 For now control his pain and blood pressure. (2) Chronic systolic CHF (congestive heart failure): Status: Acute Assessment and Plan: Severe ischemic cardiomyopathy with stenting of the OM branch in last June. Currently had recurrent chest pain rising troponin probably related to demand ischemia. Aggressive pain control. Maximize [place]. If blood pressure remains elevated consider switching metoprolol to carvedilol therapy. Currently does appear edema in overt heart failure. Continue current diuretic regimen. Avoidance of fluid loading. (3) Aortic stenosis: Status: Acute Assessment and Plan: Aortic stenosis which appears to be severe or at best moderately severe. Currently given his multiple medical problems not a candidate for intervention. However this will need to be followed by his winchman/crane operator as outpatient. (4) Coronary artery disease: Status: Acute Assessment and Plan: CAD with stenting of the OM2 branch last June. More than 6 months. Resume low-dose aspirin therapy. Trend CBC as outpatient. Continue high-intensity statin therapy. Better control blood pressure is required. Will sign of the case. Thank you for allowing me to partake in his care Time Spent With Patient Time: Total time managing care of this patient today ____ minutes. Progress Note: Quality Stroke Does the patient have a stroke diagnosis?: No Procedures Date of Service Date of Service: 04/09/23
[2023-04-09] MEDS: Insulin Lispro 100 UNIT/ML 3 ML VIAL 10 UNIT SUBCUT (11:55)
[2023-04-09 12:00] VITALS: BP 162/70; PULSE 72; RESP 19; TEMP 36.6; O2SAT 97
[2023-04-09 12:00] LABS: Adenovirus F 40/41 Not Detected (Not Detect.); Astrovirus Not Detected (Not Detect.); Campylobacter Not Detected (Not Detect.); Cryptosporidium Not Detected (Not Detect.); Cyclospora cayetanensis Not Detected (Not Detect.); E. coli EAEC Not Detected (Not Detect.); E. coli EPEC Not Detected (Not Detect.); E. coli ETEC Not Detected (Not Detect.); E. coli STEC Not Detected (Not Detect.); Entamoeba histolytica Not Detected (Not Detect.); Giardia lamblia Not Detected (Not Detect.); Norovirus GI/GII Not Detected (Not Detect.); Plesiomonas shigelloides Not Detected (Not Detect.); Rotavirus A Not Detected (Not Detect.); Salmonella Not Detected (Not Detect.); Sapovirus Not Detected (Not Detect.); Shigella sp./EIEC Not Detected (Not Detect.); Vibrio Not Detected (Not Detect.); Vibrio Cholerae Not Detected (Not Detect.); Yersinia enterocolitica Not Detected (Not Detect.)
[2023-04-09 12:04] LABS: CDiff Gene PCR NEGATIVE (Negative)
[2023-04-09] MEDS: Morphine Sulfate 4 MG/ML CARTRIDGE IVPUSH ×2 (13:36→21:15)
[2023-04-09 15:27] VITALS: BP 140/52; PULSE 86; RESP 20; TEMP 36.6; O2SAT 95
[2023-04-09 16:22] LABS: Glucose, Whole Blood 226 mg/dL (60-115)
[2023-04-09 19:13] VITALS: BP 177/68; PULSE 90; RESP 16; TEMP 36.8
[2023-04-09 20:30] LABS: Glucose, Whole Blood 261 mg/dL (60-115)
[2023-04-09] MEDS: Tamsulosin HCL 0.4 MG CAPSULE PO (21:12)
[2023-04-09 23:18] VITALS: BP 161/60; PULSE 71; RESP 18; TEMP 36.4; O2SAT 97
[2023-04-10] MEDS: oxyCODONE HCl Immed Release 5 MG TABLET PO ×3 (00:40→11:26)
[2023-04-10] MEDS: Morphine Sulfate 4 MG/ML CARTRIDGE IVPUSH ×3 (02:36→13:35)
[2023-04-10 03:23] VITALS: BP 152/56; PULSE 67; RESP 18; TEMP 36; O2SAT 97
[2023-04-10] MEDS: Omeprazole 20 MG CAPSULE.DR PO (06:02)
[2023-04-10 07:04] VITALS: BP 158/70; PULSE 70; RESP 20; TEMP 36.4; O2SAT 96
[2023-04-10 07:04] LABS: Hematocrit 33.1 % (42.0-52.0); Hemoglobin 10.1 g/dl (14.0-18.0); Mean Corpuscular HGB Conc 30.5 g/dl (31.0-36.0); Mean Corpuscular Hemoglobin 23.4 pg (27.0-33.0); Mean Corpuscular Volume 76.8 fL (80.0-98.0); Mean Platelet Volume 9.6 fL (9.4-12.4); Platelet Count 348 X10*3/uL (160-400); Red Blood Count 4.31 X10*6/uL (4.60-5.80); Red Cell Distribution Width 19.5 % (11.0-16.0); White Blood Count 9.5 X10*3/uL (4.8-10.8)
[2023-04-10 07:05] LABS: Glucose, Whole Blood 341 mg/dL (60-115)
[2023-04-10 07:31] LABS: Anion Gap 9 (12-20); Blood Urea Nitrogen 18 mg/dL (9-16); Calcium 8.9 mg/dL (8.4-10.2); Carbon Dioxide 29 mmol/L (22-29); Chloride 103 mmol/L (96-108); Creatinine Clr Calc Pharmacy 82.4; Estimated Glomerular Filt Rate > 60; Glucose Fasting 358 mg/dL (60-99); Potassium 3.6 mmol/L (3.3-5.1); Sodium 137 mmol/L (135-145)
[2023-04-10] MEDS: Insulin Glargine,Hum.rec.anlog 100 UNIT/ML 10 ML VIAL 45 UNIT SUBCUT (08:22)
[2023-04-10] MEDS: Insulin Lispro 100 UNIT/ML 3 ML VIAL SUBCUT ×2 (08:22→11:26)
[2023-04-10] MEDS: Isosorbide Mononitrate 60 MG TAB.ER.24H PO (08:23)
[2023-04-10] MEDS: Aspirin Enteric Coated 81 MG TABLET.DR PO (08:23)
[2023-04-10] MEDS: 0.9 % Sodium Chloride Flush 3 ML SYRINGE IVFLUSH (08:24)
[2023-04-10] MEDS: Bumetanide 1 MG TABLET PO (08:24)
[2023-04-10] MEDS: carvediloL 6.25 MG TABLET PO (08:24)
[2023-04-10] MEDS: Sacubitril/Valsartan 49/51 1 TAB TABLET PO (08:24)
--- NOTE | 2023-04-10 09:52 | P.DS_ITS ---
DS: Providers Provider Date of Service: 04/10/23 Date of admission: 04/03/23 19:29 Primary care physician: Remi Corbett MD Consults: 04/03/23 19:29 Consult to Gastroenterology Routine Consulting Provider: Sanjay Adames Reason for consultation: GI bleed 04/04/23 09:11 Consult to Cardiology Routine Consulting Provider: [facility] Cardiovascular Services Reason for consultation: preop eval for egd/colonoscopy 04/04/23 13:58 Consult to Pulmonology Routine Consulting Provider: [facility] Pulmonology Services Reason for consultation: COPD, preop optimizations for EGD/colon 04/09/23 11:37 Consult to Urology Routine Consulting Provider: Victor Hugo Villasenor Reason for consultation: hematuria DS: Diagnosis Discharge Diagnosis (1) Paroxysmal atrial fibrillation: Status: Acute (2) Chronic systolic CHF (congestive heart failure): Status: Acute (3) Aortic stenosis: Status: Acute (4) Coronary artery disease: Status: Acute DS: Summary Hospital Course Hospital Course: from initial hpi: 72-year-old male with pertinent history of congestive heart failure unspecified ejection fraction, paroxysmal atrial fibrillation on Eliquis, mood disorder, essential hypertension, mixed hyperlipidemia, coronary artery disease, insulin- dependent diabetes mellitus presents to the emergency department for evaluation of GI bleed.? Patient states he has been having painless diarrhea mixed with blood that started 1 day prior to presentation. Patient states he had 4-5 episodes since yesterday.? Admits similar episodes in the past but does not know the etiology.? He is on antiplatelet agent and anticoagulants.? Patient denies any fever, chills, abdominal pain while defaceation.? No chest discomfort, palpitations, changes in urinary habits.? Admits associated nausea, headache. In the emergency department, patient was found to be anemic and stool occult blood was positive hospital course: patient was admitted for acute blood loss anemia due to melena, was treated with ppi and holding plavix and eliquis. scope was defferred due to high risk for anasthesia. bleeding stopped, hgb stabilized, did not need transfusion. course was complicated by chest pain due to NSTMEI, torponin peaked about 1300. unable to treat with AC, was started on baby aspirin. for acute on chronic systolic chf with moderate to severe , was treated with iv lasix, patient euvolemic at discharge. metoprolol changed to coreg. started on entresto. high risk for any intervention, will be discharged on bumex 1mg bid. for htn meds were titrated up (see medrec), for paroxysmal afib was changed from metorplol to coreg. eliquis has been held. for DM was continued on insulin, titrated up for hyperglycemia. p atient was complaining of skin burning with urinary incontinence, so rivas was placed, will send with rivas, can do voiding trial when continent. course complicated by hematuria, which has since resolved, US renal and bladder unremarkable. patient's prognosis is guarded, but appears to be stable and at baseline at this time, shelley discharged back to SNF. Time Spent with Patient Time attestation: Total time managing care of this patient today ____ minutes. Discharge coordination time: Greater than 30 minutes Quality: Safe Use of Opioids Does Pt have an Active Cancer Diagnosis on the Problem List?: No Quality: Stroke Does the patient have a stroke diagnosis?: No Physical Exam Vital Signs: Vital Signs: Last Vital Signs Temp 97.6 F 04/10/23 07:04 Pulse 70 04/10/23 07:04 Resp 20 04/10/23 07:04 BP 158/70 H 04/10/23 07:04 Pulse Ox 96 04/10/23 07:04 O2 Del Method Nasal Cannula 04/10/23 07:04 O2 Flow Rate 2 04/10/23 07:04 BMI result Body Mass Index 34.1 GENERAL APPEARANCE: Looks pale and fatigued. NECK: no carotid bruit, no obvious jugular venous distention. SKIN: no suspicious lesions, warm and dry. HEART: no murmurs, regular rate and rhythm. LUNGS: Mild expiratory wheezes. ABDOMEN: soft, nontender. EXTREMITIES: no edema. PERIPHERAL PULSES: equal. NEUROLOGIC: No gross deficits, AAO X 3 Cardio: Heart sounds: Murmur heart sound present systolic late DS: Data Data Completed and Pending Labs on day of discharge: Laboratory Results - last 24 hr 04/09/23 04/09/23 04/09/23 08:28 08:28 09:47 WBC RBC Hgb Hct MCV MCH MCHC RDW Plt Count MPV Absolute Nucleated RBC Nucleated RBC % (auto) PT 11.7 INR 1.0 aPTT Heparin Protocol 25.8 L Sodium Potassium Chloride Carbon Dioxide Anion Gap BUN Creatinine Estim Creat Clear Calc Estimated GFR POC Glucose Fasting Glucose Calcium Urine Color Urine Appearance Urine pH Ur Specific Shafter Urine Protein Urine Glucose (UA) Urine Ketones Urine Blood Urine Nitrite Ur Leukocyte Esterase Urine RBC Urine WBC Ur Squamous Epith Cells Urine Bacteria Hyaline Casts Stl C. cayetanensis PCR Not Detected Stool Rotavirus A PCR Not Detected Stl Adenov F 40/ PCR Not Detected Stool Astrovirus (PCR) Not Detected Stool Campylobacter PCR Not Detected Stool Cryptosporidium PCR Not Detected Stl Sh Tox Pr E STEC PCR Not Detected Stool E coli O157 PCR Not applicable Stl Enterotoxigenic E PCR Not Detected Stool EPEC (PCR) Not Detected Stool EAEC (PCR) Not Detected Stl E. histolytica PCR Not Detected Stool Giardia Lamblia PCR Not Detected Stl P. shigelloides PCR Not Detected Stool Salmonella PCR Not Detected Stool Sapovirus (PCR) Not Detected Stl Shigella/EIEC PCR Not Detected St Y.enterocolitica PCR Not Detected Stool Vibrio (PCR) Not Detected Stl Vibrio cholerae PCR Not Detected Stl Norovirus GI/GII PCR Not Detected C. difficile Tox B Gene NEGATIVE 04/09/23 04/09/23 04/09/23 09:47 10:30 11:30 WBC RBC Hgb Hct MCV MCH MCHC RDW Plt Count MPV Absolute Nucleated RBC Nucleated RBC % (auto) PT INR aPTT Heparin Protocol Cancelled Sodium Potassium Chloride Carbon Dioxide Anion Gap BUN Creatinine Estim Creat Clear Calc Estimated GFR POC Glucose 396 H* Fasting Glucose Calcium Urine Color RED Urine Appearance Turbid Urine pH 6.5 Ur Specific Shafter 1.020 Urine Protein 100 (2+) H Urine Glucose (UA) 250 H Urine Ketones Negative Urine Blood Large (3+) H Urine Nitrite Negative Ur Leukocyte Esterase Moderate (2+) H Urine RBC >20 H Urine WBC 21-50 Ur Squamous Epith Cells 0-2 Urine Bacteria 1+ Hyaline Casts 3-5 Stl C. cayetanensis PCR Stool Rotavirus A PCR Stl Adenov F 40/ PCR Stool Astrovirus (PCR) Stool Campylobacter PCR Stool Cryptosporidium PCR Stl Sh Tox Pr E STEC PCR Stool E coli O157 PCR Stl Enterotoxigenic E PCR Stool EPEC (PCR) Stool EAEC (PCR) Stl E. histolytica PCR Stool Giardia Lamblia PCR Stl P. shigelloides PCR Stool Salmonella PCR Stool Sapovirus (PCR) Stl Shigella/EIEC PCR St Y.enterocolitica PCR Stool Vibrio (PCR) Stl Vibrio cholerae PCR Stl Norovirus GI/GII PCR C. difficile Tox B Gene 04/09/23 04/09/23 04/10/23 16:18 20:21 06:40 WBC RBC Hgb Hct MCV MCH MCHC RDW Plt Count MPV Absolute Nucleated RBC Nucleated RBC % (auto) PT 12.0 INR 1.0 aPTT Heparin Protocol Sodium Potassium Chloride Carbon Dioxide Anion Gap BUN Creatinine Estim Creat Clear Calc Estimated GFR POC Glucose 226 H 261 H Fasting Glucose Calcium Urine Color Urine Appearance Urine pH Ur Specific Shafter Urine Protein Urine Glucose (UA) Urine Ketones Urine Blood Urine Nitrite Ur Leukocyte Esterase Urine RBC Urine WBC Ur Squamous Epith Cells Urine Bacteria Hyaline Casts Stl C. cayetanensis PCR Stool Rotavirus A PCR Stl Adenov F PCR Stool Astrovirus (PCR) Stool Campylobacter PCR Stool Cryptosporidium PCR Stl Sh Tox Pr E STEC PCR Stool E coli O157 PCR Stl Enterotoxigenic E PCR Stool EPEC (PCR) Stool EAEC (PCR) Stl E. histolytica PCR Stool Giardia Lamblia PCR Stl P. shigelloides PCR Stool Salmonella PCR Stool Sapovirus (PCR) Stl Shigella/EIEC PCR St Y.enterocolitica PCR Stool Vibrio (PCR) Stl Vibrio cholerae PCR Stl Norovirus GI/GII PCR C. difficile Tox B Gene 04/10/23 04/10/23 04/10/23 06:48 06:48 06:56 WBC 9.5 RBC 4.31 L Hgb 10.1 L Hct 33.1 L MCV 76.8 L MCH 23.4 L MCHC 30.5 L RDW 19.5 H Plt Count 348 MPV 9.6 Absolute Nucleated RBC 0.000 Nucleated RBC % (auto) 0.0 PT INR aPTT Heparin Protocol Sodium 137 Potassium 3.6 Chloride 103 Carbon Dioxide 29 Anion Gap 9 L BUN 18 H Creatinine 1.01 Estim Creat Clear Calc 82.4 Estimated GFR > 60 POC Glucose 341 H Fasting Glucose 358 H* Calcium 8.9 D Urine Color Urine Appearance Urine pH Ur Specific Shafter Urine Protein Urine Glucose (UA) Urine Ketones Urine Blood Urine Nitrite Ur Leukocyte Esterase Urine RBC Urine WBC Ur Squamous Epith Cells Urine Bacteria Hyaline Casts Stl C. cayetanensis PCR Stool Rotavirus A PCR Stl Adenov F PCR Stool Astrovirus (PCR) Stool Campylobacter PCR Stool Cryptosporidium PCR Stl Sh Tox Pr E STEC PCR Stool E coli O157 PCR Stl Enterotoxigenic E PCR Stool EPEC (PCR) Stool EAEC (PCR) Stl E. histolytica PCR Stool Giardia Lamblia PCR Stl P. shigelloides PCR Stool Salmonella PCR Stool Sapovirus (PCR) Stl Shigella/EIEC PCR St Y.enterocolitica PCR Stool Vibrio (PCR) Stl Vibrio cholerae PCR Stl Norovirus GI/GII PCR C. difficile Tox B Gene Preliminary micro results at discharge 04/09/23 Unknown Urine Culture - Preliminary Urine Catheterized - Straight Catheter No growth to date. Discharge Plan Discharge Anticipated Discharge Date/Time: 04/10/23 09:47 Patient Disposition: er [facility] Discharge Diagnosis: gi bleed, nstemi, chf Referrals: [facility] [Outside] - 1 Week Remi Corbett MD [Primary Care Provider] - 1 Week Discharge Medications: New carvedilol 6.25 mg Tablet 6.25 mg PO BID Qty: 0 0RF Protocol: Hold for SBP/HR < HOLD for SBP < : 90 HOLD for HR < : 60 aspirin 81 mg Tablet,Delayed Release (Dr/Ec) 81 mg PO DAILY Qty: 30 0RF Entresto 49-51 mg Tablet 1 tab PO BID Qty: 0 0RF Protocol: Hold for SBP< HOLD for SBP < : 90 bumetanide 1 mg Tablet 1 mg PO BID@0800,1700 Qty: 0 0RF Protocol: Hold for SBP< HOLD for SBP < : 90 oxycodone 5 mg Tablet 5 mg PO Q3H PRN (Reason: moderate pain) Qty: 15 0RF Rx Instructions: Partial Fill upon patient request. Continued atorvastatin 80 mg tablet 80 mg PO BEDTIME insulin glargine 100 unit/mL Solution 20 unit SUBCUT DAILY insulin glargine 100 unit/mL Solution 90 unit SUBCUT BEDTIME loperamide [Imodium A-D] 2 mg Tablet 2 mg PO Q4H PRN (Reason: Diarrhea) Rx Instructions: administer after each loose stool until symptoms controlled; do not exceed 8 mg per 24 hrs melatonin 3 mg Tablet 6 mg PO BEDTIME isosorbide mononitrate 60 mg tablet extended release 24 hr 60 mg PO DAILY amitriptyline 25 mg tablet 75 mg PO BEDTIME magnesium hydroxide [Milk of Magnesia] 400 mg/5 mL Suspension 30 ml PO DAILY PRN (Reason: Constipation) cyanocobalamin (vitamin B-12) 500 mcg Tablet 1,000 mcg PO DAILY dicyclomine 20 mg tablet 40 mg PO QID bisacodyl 10 mg Suppository 10 mg ND DAILY PRN (Reason: Constipation) Fleet Enema 19-7 gram/118 mL Enema 118 ml ND DAILY PRN (Reason: Constipation) ammonium lactate 12 % cream 1 appl topical BID Rx Instructions: APPLY TO BILATERAL LEGS alum-mag hydroxide-simeth [Maalox Maximum Strength] 400-400-40 mg/5 mL Suspension 20 ml PO Q6H PRN (Reason: UPSET STOMACH) Humalog U-100 Insulin 100 unit/mL Cartridge See Protocol SUBCUT TIDA Protocol: Insulin Correction Scale Less than or equal to 110 ---- Give (units): 0 111 to 150 Give (units): 0 151 to 200 Give (units): 2 201 to 250 Give (units): 4 251 to 300 Give (units): 6 301 to 350 Give (units): 8 Greater than 350 Give (units): 10 Call MD if Blood Glucose > : 350 methyl salicylate-menthol Cream 1 appl TOPICAL BID PRN (Reason: Pain) cholestyramine (with sugar) 4 gram powder 1 ea PO BID cholecalciferol (vitamin D3) 1,250 mcg (50,000 unit) Capsule 1,250 mcg PO QMONTH Rx Instructions: TAKE ON THE OF EACH MONTH Farxiga 10 mg tablet 10 mg PO DAILY Bevespi Aerosphere 9-4.8 mcg HFA aerosol inhaler 2 puff inhalation BID bupropion HCl 150 mg tablet sustained-release 12 hr 150 mg PO BID acetaminophen 325 mg Tablet 650 mg PO Q4H PRN (Reason: PAIN/FEVER) acetaminophen 650 mg Suppository 650 mg ND Q4H PRN (Reason: PAIN/FEVER) ondansetron HCl 4 mg Tablet 4 mg PO Q6H PRN (Reason: Nausea) potassium chloride 10 mEq tablet extended release 10 meq PO DAILY Rx Instructions: TDD= 50 MEQ ascorbic acid (vitamin C) 500 mg Tablet 500 mg PO BID tamsulosin 0.4 mg capsule 0.4 mg PO BEDTIME pantoprazole 40 mg tablet,delayed release (DR/EC) 40 mg PO DAILY@0630 nitroglycerin 0.4 mg tablet, sublingual 0.4 mg sublingual Q5M PRN (Reason: Chest Pain) albuterol sulfate 90 mcg/actuation HFA aerosol inhaler 2 puff inhalation Q6H PRN (Reason: Shortness Of Breath) naloxone 4 mg/actuation [place],Non-Aerosol 4 mg INTRANASAL Q24H PRN (Reason: SEDATION/UNRESPONSIVE) Rx Instructions: spray 1 dose into ONE nostril; alternate nostrils w each dose until help arrives Discontinued bumetanide 1 mg Tablet 5 mg PO BID Eliquis 5 mg tablet 5 mg PO BID metoprolol tartrate 75 mg tablet 75 mg PO BID clopidogrel 75 mg tablet 75 mg PO DAILY potassium chloride 20 mEq tablet,ER particles/crystals 40 meq PO DAILY Rx Instructions: TDD= 50 MEQ Discharge Orders: Discharge Order (Routine); Ordered 04/10/23 Ordered By: Abdias Vargas Diet: Advance to usual diet Activity on Discharge: As tolerated Stand Alone Forms: Patient Portal Discharge page Care Plan Goals: avoid hospitalizations Health Concerns: cad, chf, gi bleed, hematuria, Plan of Treatment: stopping eliquis and plavix for bleed, started on baby asa, changed chf meds as per medrec. rivas placed for skin intergrity, when better can do voiding trial Assessment: see above Discharge Date/Time: 04/10/23 14:35
--- NOTE | 2023-04-10 11:01 | MHC.CM.PN ---
Patient has been medically cleared for dc to LTC today. Patient will return to LTC @ [facility] today at 2 PM, via [facility]. IMM to be addressed with Patient and CM spoke with Primary Contact/Cousin/Akbar @ [phone] and informed him of the dc plan.
[2023-04-10 11:03] VITALS: BP 142/78; PULSE 83; RESP 20; TEMP 36.5; O2SAT 96
[2023-04-10 11:03] LABS: Glucose, Whole Blood 352 mg/dL (60-115)
[2023-04-10] MEDS: Insulin Lispro 100 UNIT/ML 3 ML VIAL 10 UNIT SUBCUT (11:26)
== END 2023-04-10 14:35 | DRG 377 ==
LOC: HO.ED 15:56 → HO.EDOVER 19:38 → HO.IMC 22:56
PROVIDERS: Admitting Provider Student in an Organized Health Care Education/Training Program; Emergency Provider Student in an Organized Health Care Education/Training Program; PCP Family Medicine; Visit Provider Internal Medicine
DX: K92.1 Melena (principal); I21.4 Non-ST elevation (NSTEMI) myocardial infarction; I50.23 Acute on chronic systolic (congestive) heart failure; D62 Acute posthemorrhagic anemia; I25.10 Atherosclerotic heart disease of native coronary artery without angina pectoris; I48.0 Paroxysmal atrial fibrillation; E11.65 Type 2 diabetes mellitus with hyperglycemia; Z66 Do not resuscitate; K21.9 Gastro-esophageal reflux disease without esophagitis; I11.0 Hypertensive heart disease with heart failure; I25.2 Old myocardial infarction; E78.2 Mixed hyperlipidemia; J44.9 Chronic obstructive pulmonary disease, unspecified; I35.0 Nonrheumatic aortic (valve) stenosis; I25.5 Ischemic cardiomyopathy; Z86.73 Personal history of transient ischemic attack (TIA), and cerebral infarction without residual deficits; Z95.810 Presence of automatic (implantable) cardiac defibrillator; Z79.4 Long term (current) use of insulin; Z79.01 Long term (current) use of anticoagulants; Z79.82 Long term (current) use of aspirin; Z79.84 Long term (current) use of oral hypoglycemic drugs; Z79.899 Other long term (current) drug therapy
CPT/HCPCS: 36415; 71045; 74177; 76770; 80048; 80053; 81001; 82043; 82272; 82947; 84484; 85014; 85018; 85025; 85027; 85610; 85730; 86850; 86900; 86901; 86923; 87086; 87493; 87507; 93005; 93306; 94640; 99285; C1758; J1940; J2270; J2405; P9016; Q9957; Q9967

== ENCOUNTER 2023-04-03 19:29 | Outpatient (BNV) | payer MEDICARE, MEDICAID, SELFPAY | END 2023-04-04 05:33 | PROVIDERS: Admitting Provider Student in an Organized Health Care Education/Training Program; Emergency Provider Student in an Organized Health Care Education/Training Program; PCP Family Medicine; Visit Provider Internal Medicine Cardiovascular Disease | DX: I44.0 Atrioventricular block, first degree (principal); R94.31 Abnormal electrocardiogram [ECG] [EKG] | CPT/HCPCS: 93010 ==

== ENCOUNTER 2023-04-03 19:29 | Outpatient (BNV) | payer MEDICARE, MEDICAID, SELFPAY | END 2023-04-05 07:00 | PROVIDERS: Admitting Provider Student in an Organized Health Care Education/Training Program; Emergency Provider Student in an Organized Health Care Education/Training Program; PCP Family Medicine; Visit Provider Internal Medicine Cardiovascular Disease | DX: I44.0 Atrioventricular block, first degree (principal); I49.1 Atrial premature depolarization | CPT/HCPCS: 93010; 93306 ==

== ENCOUNTER 2023-04-03 19:29 | Outpatient (BNV) | payer MEDICARE, MEDICAID, SELFPAY | END 2023-04-08 08:04 | PROVIDERS: Admitting Provider Student in an Organized Health Care Education/Training Program; Emergency Provider Student in an Organized Health Care Education/Training Program; PCP Family Medicine; Visit Provider Internal Medicine Cardiovascular Disease | DX: I44.0 Atrioventricular block, first degree (principal); I45.81 Long QT syndrome | CPT/HCPCS: 93010 ==

== ENCOUNTER → 2023-04-03 19:29 | Outpatient (BNV) | payer MEDICARE, MEDICAID, SELFPAY | PROVIDERS: Admitting Provider Student in an Organized Health Care Education/Training Program; Emergency Provider Student in an Organized Health Care Education/Training Program; PCP Family Medicine; Visit Provider Internal Medicine Gastroenterology | DX: K92.2 Gastrointestinal hemorrhage, unspecified (principal) | CPT/HCPCS: 99222 ==

== ENCOUNTER → 2023-04-03 19:29 | Outpatient (BNV) | payer MEDICARE, MEDICAID, SELFPAY | PROVIDERS: Admitting Provider Student in an Organized Health Care Education/Training Program; Emergency Provider Student in an Organized Health Care Education/Training Program; PCP Family Medicine; Visit Provider Internal Medicine Cardiovascular Disease | DX: I50.23 Acute on chronic systolic (congestive) heart failure (principal); I25.10 Atherosclerotic heart disease of native coronary artery without angina pectoris | CPT/HCPCS: 93010; 99223; 99233 ==

== ENCOUNTER → 2023-04-03 19:29 | Outpatient (BNV) | payer MEDICARE, MEDICAID, SELFPAY | PROVIDERS: Admitting Provider Student in an Organized Health Care Education/Training Program; Emergency Provider Student in an Organized Health Care Education/Training Program; PCP Family Medicine; Visit Provider Student in an Organized Health Care Education/Training Program | DX: I48.0 Paroxysmal atrial fibrillation (principal); I50.22 Chronic systolic (congestive) heart failure; I35.0 Nonrheumatic aortic (valve) stenosis; I25.10 Atherosclerotic heart disease of native coronary artery without angina pectoris | CPT/HCPCS: 99222; 99233; 99239 ==

== ENCOUNTER → 2023-04-03 19:29 | Outpatient (BNV) | payer MEDICARE, MEDICAID, SELFPAY | PROVIDERS: Admitting Provider Student in an Organized Health Care Education/Training Program; Emergency Provider Student in an Organized Health Care Education/Training Program; PCP Family Medicine; Visit Provider Internal Medicine Pulmonary Disease | DX: Z01.811 Encounter for preprocedural respiratory examination (principal) | CPT/HCPCS: 99232 ==

== ENCOUNTER 2023-06-07 09:10 | Inpatient (IN) | payer MEDICARE, MEDICAID, SELFPAY ==
[2023-06-07] VITALS (8 sets, daily range): BP systolic 122–194; BP diastolic 42–91; PULSE 71–109; RESP 14–22; TEMP 36.1–36.6; O2SAT 90–100; BMI 30.1; BMI 33.8
--- NOTE | ~2023-06-07 | CT_ITS ---
EXAMINATION: CT ABDOMEN AND PELVIS WITH CONTRAST -GI BLEED STUDY CLINICAL INFORMATION: Right red blood per rectum COMPARISON: CT abdomen pelvis 04/03/2023 TECHNIQUE: Multidetector volumetric imaging was performed from the superior aspect of the liver through the pubic symphysis both before as well as after intravenous contrast. 2 sets of post contrast scans were performed, one during the arterial phase the other after a 2 minute delay. A total of 80 mL of Omnipaque 350 was utilized for the study. Sagittal and coronal reformatted images were obtained on the technologist's workstation. This CT examination was performed using dose optimization techniques as appropriate, variously including the following: *Automated exposure control *Adjustment of mA and/or kV according to patient size (this includes techniques or standardized protocols for targeted exams where dose is matched to indication/reason for exam; i.e. extremities or head) *Use of iterative reconstruction technique DLP: 2256 mGy-cm FINDINGS: LUNG BASES: The visualized lung bases are unremarkable. Atelectasis is present at the right lung base LIVER, GALLBLADDER, AND BILIARY TREE: There is pneumobilia in an atrophied left lobe. The liver otherwise appears unremarkable without masses or bile duct dilatation. Status post cholecystectomy PANCREAS: Unremarkable. SPLEEN: Unremarkable. ADRENAL GLANDS: Unremarkable. KIDNEYS AND URETERS: The kidneys are normal in size, shape, and attenuation. There is mild to moderate left-sided pelvocaliectasis and dilatation of the ureter but no cause of obstruction is seen. No right-sided hydronephrosis. No nephrolithiasis. No renal masses. No perinephric stranding. BLADDER: Unremarkable. GASTROINTESTINAL TRACT: There is moderately extensive colonic diverticulosis without evidence of diverticulitis. There is high density material within diverticula seen on noncontrast imaging but no accumulation of contrast in bowel lumen to suggest active GI bleed. The small and large bowel are otherwise unremarkable. The appendix is unremarkable. ABDOMINAL WALL: There is marked subcutaneous soft tissue thickening calcifications seen in the lower abdominal fuller bilaterally probably secondary to injection granulomas, unchanged from prior. LYMPH NODES: No retroperitoneal lymphadenopathy. VASCULAR: Severe atherosclerotic changes are present in the aorta and iliofemoral vessels with probable hemodynamically significant stenoses present (for example left iliac artery). PELVIC VISCERA: A TURP defect is seen within the prostate. Seminal vesicles appear normal. OSSEOUS STRUCTURES: Degenerative changes are present spine without bony destructive lesions. CT/CT gi bleed abd pel wo/w IVcon IMPRESSION: 1. No evidence of active GI bleed. 2. Colonic diverticulosis without diverticulitis. 3. Mild to moderate left-sided pelvocaliectasis and dilatation of the ureter but no cause of obstruction is seen. 4. Severe atherosclerotic disease with probable hemodynamically significant stenoses. 5. Other incidental findings as described above. Fleischner guidelines were followed.
--- NOTE | 2023-06-07 09:42 | ED.GIBLEED ---
HPI - GI Bleed General Chief complaint: GI Bleed Stated complaint: BLOOD IN STOOL Time Seen by Provider: 06/07/23 09:20 Source: patient and old records reviewed Mode of arrival: EMS Limitations: no limitations History of Present Illness HPI Narrative: 72 yo male with PMH of GIB - recently in March treated with PPI and blood transfusion it resolved and held EGD and colonoscopy due to anesthesia risks, aortic stenosis, CAD, CHF, NSTEMI, HTN, DM, mood disorder, PAF on aspirin 81mg and 75mg plavix daily I do not see a DOAC. He is DNR/DNI. He notes he had scant blood in his stool frequently but today he woke up in a pile of brb. He has brb to maroonish colored stool. He has no pain in his abdomen he states my colon is messed up. He would want a blood transfusion. MD complaint: gross hematochezia Onset (ago): hour(s) (2) Severity: moderate Relieving factors: none Exacerbating factors: bowel movement Context: history of GI bleed Associated symptoms: denies other symptoms Treatments Prior to Arrival: none Related Data Home Medications Medication Instructions Recorded Confirmed acetaminophen 325 mg tablet 650 mg PO Q4H PRN PAIN/FEVER 04/03/23 04/03/23 acetaminophen 650 mg rectal 650 mg [place] Q4H PRN PAIN/FEVER 04/03/23 04/03/23 suppository albuterol sulfate 90 mcg/actuation 2 puff inhalation Q6H PRN 04/03/23 04/03/23 aerosol inhaler Shortness Of Breath aluminum-mag hydroxide-simethicone 20 ml PO Q6H PRN UPSET STOMACH 04/03/23 04/03/23 400 mg-400 mg-40 mg/5 mL oral susp (Maalox Maximum Strength) amitriptyline 25 mg tablet 75 mg PO BEDTIME 04/03/23 04/03/23 ammonium lactate 12 % topical cream 1 appl topical BID 04/03/23 04/03/23 ascorbic acid (vitamin C) 500 mg 500 mg PO BID 04/03/23 04/03/23 tablet atorvastatin 80 mg tablet 80 mg PO BEDTIME 04/03/23 04/03/23 bisacodyl 10 mg rectal suppository 10 mg [place] DAILY PRN Constipation 04/03/23 04/03/23 bupropion HCl 150 mg tablet,12 hr 150 mg PO BID 04/03/23 04/03/23 sustained-release cholecalciferol (vitamin D3) 1,250 1,250 mcg PO QMONTH 04/03/23 04/03/23 mcg (50,000 unit) capsule cholestyramine (with sugar) 4 gram 1 ea PO BID 04/03/23 04/03/23 oral powder cyanocobalamin (vitamin B-12) 500 1,000 mcg PO DAILY 04/03/23 04/03/23 mcg tablet dapagliflozin propanediol 10 mg 10 mg PO DAILY 04/03/23 04/03/23 tablet (Farxiga) dicyclomine 20 mg tablet 40 mg PO QID 04/03/23 04/03/23 glycopyrrolate 9 mcg-formoterol 2 puff inhalation BID 04/03/23 04/03/23 4.8 mcg HFA aerosol inhaler (Bevespi Aerosphere) insulin glargine 100 unit/mL 20 unit subcut DAILY 04/03/23 04/03/23 subcutaneous solution insulin glargine 100 unit/mL 90 unit subcut BEDTIME 04/03/23 04/03/23 subcutaneous solution insulin lispro 100 unit/mL See Protocol subcut TIDAC 04/03/23 04/03/23 subcutaneous cartridge (Humalog U-100 Insulin) isosorbide mononitrate 60 mg 60 mg PO DAILY 04/03/23 04/03/23 tablet,extended release 24 hr loperamide 2 mg tablet (Imodium 2 mg PO Q4H PRN Diarrhea 04/03/23 04/03/23 A-D) magnesium hydroxide 400 mg/5 mL 30 ml PO DAILY PRN Constipation 04/03/23 04/03/23 oral suspension (Milk of Magnesia) melatonin 3 mg tablet 6 mg PO BEDTIME 04/03/23 04/03/23 methyl salicylate-menthol topical 1 appl topical BID PRN Pain 04/03/23 04/03/23 cream naloxone 4 mg/actuation nasal spray 4 mg intranasal Q24H PRN 04/03/23 04/03/23 SEDATION/UNRESPONSIVE nitroglycerin 0.4 mg sublingual 0.4 mg sublingual Q5M PRN Chest 04/03/23 04/03/23 tablet Pain ondansetron HCl 4 mg tablet 4 mg PO Q6H PRN Nausea 04/03/23 04/03/23 pantoprazole 40 mg tablet,delayed 40 mg PO DAILY@0630 04/03/23 04/03/23 release potassium chloride 10 mEq 10 meq PO DAILY 04/03/23 04/03/23 tablet,extended release sodium phosphates 19 gram-7 118 ml [place] DAILY PRN Constipation 04/03/23 04/03/23 gram/118 mL enema (Fleet Enema) tamsulosin 0.4 mg capsule 0.4 mg PO BEDTIME 04/03/23 04/03/23 Previous Rx's Medication Instructions Recorded aspirin 81 mg tablet,delayed 81 mg PO DAILY #30 tabs 04/10/23 release bumetanide 1 mg tablet 1 mg PO BID@0800,1700 #0 tabs 04/10/23 carvedilol 6.25 mg tablet 6.25 mg PO BID #0 tabs 04/10/23 oxycodone 5 mg tablet 5 mg PO Q3H PRN moderate pain #15 04/10/23 tabs sacubitril 49 mg-valsartan 51 mg 1 tab PO BID #0 tabs 04/10/23 tablet (Entresto) Allergies Allergy/AdvReac Type Severity Reaction Status Date / Time coconut [COCONUT] Allergy Unknown HIVES Unverified 06/03/20 14:35 pineapple [PINEAPPLE] Allergy Unknown HIVES Unverified 06/03/20 14:35 Review of Systems Review of Systems: Constitutional : No Weight loss, No Fever, No Chills ENT/Mouth : No sore throat, No Rhinorrhea Eyes: No Swelling, No Redness Cardiovascular : No Chest Pain, No SOB, NoEdema Respiratory : No Cough, No Sputum, No Wheezing Gastrointestinal : no Nausea, no Vomiting, positive Diarrhea, no abdominal Pain, pos Hematochezia, No Melena Genitourinary : No Dysuria, No Urinary Frequency, No Hematuria, No Urgency Musculoskeletal : No joint pain, No Myalgias, No Joint Swelling Skin : No Skin Lesions, No rash Neuro : No Weakness, No Numbness, No Dizziness, No Headache Psych : No Anxiety/Panic, No Depression All other systems reviewed and are negative. [facility] Past Medical History Attestation statement: The following information was validated with the patient. Source: old records reviewed Medical History Chronic systolic CHF (congestive heart failure) Insulin dependent type 2 diabetes mellitus Mood disorder Essential hypertension Congestive heart failure Paroxysmal atrial fibrillation Coronary artery disease Social History Social History Housing: Long-Term Patient Tobacco Use Status: Tobacco use Unknown Smoked in Last 30 Days: No Use of substances other than those prescribed or required for medical reasons: Yes Substance Use Type: Marijuana Advance Directives: Yes Advance Directives on File: Yes Advance Directives Date on File: 04/11/23 service: Yes Physical Exam Vital Signs: Vital Signs: Last Vital Signs Temp 97.9 F 06/07/23 14:41 Pulse 74 06/07/23 14:41 Resp 16 06/07/23 14:41 BP 138/50 L 06/07/23 14:41 Pulse Ox 99 06/07/23 14:41 O2 Del Method Room Air 06/07/23 14:41 BMI result Body Mass Index 30.1 Appearance: Alert. Oriented X3. No acute distress. Eyes: Pupils equal, round and reactive to light. ENT: Pharynx normal. Neck: Normal inspection. Neck supple. CVS: irregular heart rate and rhythm. Pulses normal. Respiratory: No respiratory distress. Breath sounds normal. Abdomen: Soft and non-tender. Rectal: in adult brief bright red to maroonish blood is coming out of rectum 10-20mL seen in brief, states he woke up with it filled and soaking his pants this AM Skin: Skin warm and dry. pale skin color. Normal skin turgor. Extremities: No lower extremity edema. No calf ttp Neuro: Oriented X 3. No motor deficit. No sensory deficit. Medications Administered Discontinued Medications Generic Name Dose Route Start Last Admin Trade Name Freq PRN Reason Stop Dose Admin Iohexol 100 ml 06/07/23 11:17 06/07/23 11:18 Iohexol 350 Mg/Ml 100 Ml Infus..Btl IV 06/07/23 11:18 80 ml ONCE ONE Administration Pantoprazole Sodium 40 mg 06/07/23 10:55 06/07/23 12:18 Pantoprazole Sodium 40 Mg/10 Ml Vial IVPUSH 06/07/23 10:56 40 mg ONCE ONE Administration Medical Decision Making Medical Decision Making MDM Narrative: 72 yo male with PMH of GIB - recently in March treated with PPI and blood transfusion it resolved and held EGD and colonoscopy due to anesthesia risks, aortic stenosis, CAD, CHF, NSTEMI, HTN, DM, mood disorder, PAF on aspirin 81mg and 75mg plavix daily I do not see a DOAC. He is DNR/DNI. At this time has brb and maroon stool in adult brief on exam but no abdominal pain will need basic labs, type and screen two IV lines ordered, GI bleed protocol and blood consent done. will notify GI team.. Differential Diagnosis Differential Diagnoses: The differential diagnosis associated with the presentation includes upper vs lower GIB (likely lower) Admission/Observation Consideration of admission/observation: Escalation of care including admission/observation considered admit for observation of GIB Consult Healthcare Provider Management of the patient was discussed with: Certified Orthotist (STERLING Triana aware will follow no plans for scope right now) Lab Data [facility] Lab Attestation statement: I reviewed the patient's lab results. H/H trend stable 06/07/23 14:43 06/07/23 10:10 Labs: Lab Results 06/07/23 06/07/23 06/07/23 Range/Units 10:02 10:10 12:14 WBC 8.0 (4.8-10.8) X10*3/uL RBC 4.28 L (4.60-5.80) X10*6/uL Hgb 10.0 L (14.0-18.0) g/dl Hct 32.9 L (42.0-52.0) % MCV 76.9 L (80.0-98.0) fL MCH 23.4 L (27.0-33.0) pg MCHC 30.4 L (31.0-36.0) g/dl RDW 22.7 H (11.0-16.0) % Plt Count 287 (160-400) X10*3/uL MPV 10.1 (9.4-12.4) fL Immature Gran % (Auto) 0.2 (0.0-0.4) % Neut % (Auto) 67.2 (45-73) % Lymph % (Auto) 21.4 (20-40) % Pierce % (Auto) 6.6 (2-11) % Eos % (Auto) 3.7 (0-4) % Baso % (Auto) 0.9 (0-2) % Lymph # (Auto) 1.7 (1.2-4.9) X10*3/uL Pierce # (Auto) 0.5 (0.1-1.2) X10*3/uL Eos # (Auto) 0.3 (0.0-0.4) X10*3/uL Baso # (Auto) 0.1 (0.0-0.2) X10*3/uL Abs Immat Gran (auto) 0.02 (0.00-0.03) X10*3/uL Absolute Neuts (auto) 5.4 (2.0-8.3) x10*3/uL Absolute Nucleated RBC 0.000 (0.0-0.012) X10*3/uL Nucleated RBC % (auto) 0.0 (0.0-0.2) /100WBC PT 12.3 (11.1-13.3) SEC INR 1.0 (0.9-1.1) Sodium 141 (135-145) mmol/L Potassium 4.2 (3.3-5.1) mmol/L Chloride 110 H (96-108) mmol/L Carbon Dioxide 23 (22-29) mmol/L Anion Gap 12 (12-20) BUN 29 H (9-16) mg/dL Creatinine 0.98 (0.5-1.4) mg/dL Estim Creat Clear Calc 80.0 Estimated GFR > 60 Random Glucose 75 (60-115) mg/dL Lactic Acid 1.1 (0.5-2.0) mmol/L Calcium 8.6 (8.4-10.2) mg/dL Magnesium 2.1 (1.6-2.6) mg/dL Total Bilirubin 0.3 (0.0-1.0) mg/dL Direct Bilirubin 0.1 (0.0-0.5) mg/dL AST 22 (5-37) U/L ALT 21 (0-40) U/L Alkaline Phosphatase 158 H (39-117) U/L Total Protein 6.7 (6.5-8.0) g/dL Albumin 3.3 L (3.5-5.0) g/dL Lipase 4 L (8-78) U/L Stool Occult Blood POSITIVE (NEGATIVE) Blood Type AB Positive Antibody Screen NEGATIVE 06/07/23 Range/Units 14:43 WBC 8.9 (4.8-10.8) X10*3/uL RBC 4.19 L (4.60-5.80) X10*6/uL Hgb 9.6 L (14.0-18.0) g/dl Hct 32.1 L (42.0-52.0) % MCV 76.6 L (80.0-98.0) fL MCH 22.9 L (27.0-33.0) pg MCHC 29.9 L (31.0-36.0) g/dl RDW 22.8 H (11.0-16.0) % Plt Count 275 (160-400) X10*3/uL MPV 9.9 (9.4-12.4) fL Immature Gran % (Auto) (0.0-0.4) % Neut % (Auto) (45-73) % Lymph % (Auto) (20-40) % Pierce % (Auto) (2-11) % Eos % (Auto) (0-4) % Baso % (Auto) (0-2) % Lymph # (Auto) (1.2-4.9) X10*3/uL Pierce # (Auto) (0.1-1.2) X10*3/uL Eos # (Auto) (0.0-0.4) X10*3/uL Baso # (Auto) (0.0-0.2) X10*3/uL Abs Immat Gran (auto) (0.00-0.03) X10*3/uL Absolute Neuts (auto) (2.0-8.3) x10*3/uL Absolute Nucleated RBC 0.000 (0.0-0.012) X10*3/uL Nucleated RBC % (auto) 0.0 (0.0-0.2) /100WBC PT (11.1-13.3) SEC INR (0.9-1.1) Sodium (135-145) mmol/L Potassium (3.3-5.1) mmol/L Chloride (96-108) mmol/L Carbon Dioxide (22-29) mmol/L Anion Gap (12-20) BUN (9-16) mg/dL Creatinine (0.5-1.4) mg/dL Estim Creat Clear Calc Estimated GFR Random Glucose (60-115) mg/dL Lactic Acid (0.5-2.0) mmol/L Calcium (8.4-10.2) mg/dL Magnesium (1.6-2.6) mg/dL Total Bilirubin (0.0-1.0) mg/dL Direct Bilirubin (0.0-0.5) mg/dL AST (5-37) U/L ALT (0-40) U/L Alkaline Phosphatase (39-117) U/L Total Protein (6.5-8.0) g/dL Albumin (3.5-5.0) g/dL Lipase (8-78) U/L Stool Occult Blood (NEGATIVE) Blood Type Antibody Screen Independent Interpretation I performed an independent interpretation of an: EKG and CT Scan (no active GIB) Interpretation: Rate: 72 Rhythm: NSR 1st degree AVB [place]: left Normal P waves. Normal QRS complex. ST T wave : inverted t waves lateral leads, no JAKOB qTC: normal prior studies: no acute ischemia The study has been interpreted contemporaneously by me. . Radiology Impression Discussion of test interpretation with radiology: I have reviewed the radiologist's reading. Independent Historian Clinical information obtained from an independent historian. History obtained from or confirmed by: EMS External Record Review External record reviewed: Inpatient record Discharge Plan Discharge Clinical Impression: GI bleed Qualifiers: GI bleed type/associated pathology: unspecified gastrointestinal hemorrhage type Qualified Code(s): K92.2 - Gastrointestinal hemorrhage, unspecified Patient Disposition: Admitted As Inpatient
--- NOTE | 2023-06-07 09:56 | ECG_ITS ---
Test Reason : GI BLEED Blood Pressure : / mmHG Vent. Rate : 072 BPM Atrial Rate : 072 BPM P-R Int : 250 ms QRS Dur : 094 ms QT Int : 422 ms P-R-T Axes : 097 -17 179 degrees QTc Int : 462 ms Sinus rhythm with 1st degree A-V block ST & T wave abnormality, consider lateral ischemia Prolonged QT Abnormal ECG When compared with ECG of 08-APR-2023 08:04, Nonspecific T wave abnormality, improved in Inferior leads Referred By: Guillermina Núñez Electronically Signed By:JUANJO LOZANO
[2023-06-07 10:14] LABS: OBS Int Ctl Valid YES; OBS1 POSITIVE (NEGATIVE)
--- NOTE | 2023-06-07 10:16 | PC.NURSE ---
pt a&o x4, pleasant, calm, and cooperative. pt has moderate blood coming from rectum. reporting 5/10 rectal pain. labs drawn and sent to lab with OBS. blood band placed on pt. 18G IV to left forearm, 20G IV to right wrist. EKG obtained.
[2023-06-07 10:21] LABS: MANUAL DIFF FLAG NO
[2023-06-07 10:23] LABS: Basophils Absolute Auto 0.1 X10*3/uL (0.0-0.2); Basophils Percent Auto 0.9 % (0-2); Eosinophils Absolute Auto 0.3 X10*3/uL (0.0-0.4); Eosinophils Percent Auto 3.7 % (0-4); Hematocrit 32.9 % (42.0-52.0); Imm Gran Abs Auto 0.02 X10*3/uL (0.00-0.03); Imm Gran Pct Auto 0.2 % (0.0-0.4); Lymphocytes Absolute Auto 1.7 X10*3/uL (1.2-4.9); Lymphocytes Percent Auto 21.4 % (20-40); Mean Corpuscular HGB Conc 30.4 g/dl (31.0-36.0); Mean Corpuscular Hemoglobin 23.4 pg (27.0-33.0); Mean Corpuscular Volume 76.9 fL (80.0-98.0); Mean Platelet Volume 10.1 fL (9.4-12.4); Monocytes Absolute Auto 0.5 X10*3/uL (0.1-1.2); Monocytes Percent Auto 6.6 % (2-11); Neutrophils Absolute Auto 5.4 x10*3/uL (2.0-8.3); Neutrophils Percent Auto 67.2 % (45-73); Platelet Count 287 X10*3/uL (160-400); Red Blood Count 4.28 X10*6/uL (4.60-5.80); Red Cell Distribution Width 22.7 % (11.0-16.0)
[2023-06-07 10:29] LABS: Prothrombin Time 12.3 SEC (11.1-13.3)
[2023-06-07 10:38] LABS: Lactic Acid 1.1 mmol/L (0.5-2.0)
[2023-06-07 10:42] LABS: Alanine Aminotransferase 21 U/L (0-40); Albumin Level 3.3 g/dL (3.5-5.0); Alkaline Phosphatase 158 U/L (39-117); Anion Gap 12 (12-20); Aspartate Amino Transferase 22 U/L (5-37); Bilirubin Direct 0.1 mg/dL (0.0-0.5); Bilirubin Total 0.3 mg/dL (0.0-1.0); Blood Urea Nitrogen 29 mg/dL (9-16); Calcium 8.6 mg/dL (8.4-10.2); Carbon Dioxide 23 mmol/L (22-29); Chloride 110 mmol/L (96-108); Estimated Glomerular Filt Rate > 60; Glucose Random 75 mg/dL (60-115); Lipase 4 U/L (8-78); Magnesium 2.1 mg/dL (1.6-2.6); Potassium 4.2 mmol/L (3.3-5.1); Sodium 141 mmol/L (135-145); Total Protein 6.7 g/dL (6.5-8.0)
[2023-06-07] MEDS: iohexoL 350 MG/ML 100 ML INFUS..BTL IV (11:18)
[2023-06-07] MEDS: Pantoprazole Sodium 40 MG/10 ML VIAL IVPUSH (12:18)
--- NOTE | 2023-06-07 14:00 | PM.GICN ---
History of Present Illness Data of Consult Service Date: 06/07/23 Requesting physician: Guillermina Núñez Primary Care Provider: Remi Corbett MD HPI Reason for consult: GI bleed 72 YM with congestive heart failure unspecified ejection fraction, paroxysmal atrial fibrillation (was on eliquis but not now), mood disorder, status post CVA (rt MCA), essential hypertension, mixed hyperlipidemia, coronary artery disease, insulin-dependent diabetes mellitus who I am seeing for GI bleed.? Patient woke up this morning in pool of bloody faeces. He ddenies chest pain/pressure, palpitations. No shortness of breath. Denies fever, chills, nausea, vomiting, abdominal pain. No nausea, or vomiting. HE has fecal and urine incontinence at baseline. He is in plavix and aspirin at baseline. When I saw him he denied further episodes of bleeding and was fed up and wanted to eat. His nitial H&H 10.0/32.9 with repeat 4 hours later 9.6/32.1, alk-phos 158. CT GI bleed protocol was done which did not reveal any acute source of bleeding. It did reveal severe atherosclerotic disease Patient had similar presentation with GI bleeding in 03/2023 and initial plan was for EGD, colonoscopy for further evaluation but he was seen by cardiology and felt to be v high wilber op risk due to severe and heart disease with advice to transfer to tertiary facility for these procedures if needed. Review of Systems Review of Systems: Constitutional : No Weight loss, No Fever, No Chills ENT/Mouth : No sore throat, No Rhinorrhea Eyes: No Swelling, No Redness Cardiovascular : No Chest Pain, No SOB, No Edema Respiratory : No Cough, No Sputum, No Wheezing Gastrointestinal : see HPI Genitourinary : NO Dysuria, No Urinary Frequency, No Hematuria, No Urgency Musculoskeletal : No joint pain, No Myalgias, No Joint Swelling Skin : No Skin Lesions, No rash Neuro : No Weakness, No Numbness, No Dizziness, No Headache Psych : No Anxiety/Panic, No Depression Heme/Lymph: No Bruising, No Lymphadenopathy Endocrine : No Polyuria, No Polydipsia All other systems reviewed and are negative. [facility] Past Medical History Medical History Chronic systolic CHF (congestive heart failure) Insulin dependent type 2 diabetes mellitus Mood disorder Essential hypertension Congestive heart failure Paroxysmal atrial fibrillation Coronary artery disease Social History Social History Housing: [facility] Patient Tobacco Use Status: Tobacco use Unknown Smoked in Last 30 Days: No Use of substances other than those prescribed or required for medical reasons: Yes Substance Use Type: Marijuana Advance Directives: Yes Advance Directives on File: Yes Advance Directives Date on File: 04/11/23 service: Yes Meds Allergies Allergy/AdvReac Type Severity Reaction Status Date / Time coconut [COCONUT] Allergy Unknown HIVES Unverified 06/03/20 14:35 pineapple [PINEAPPLE] Allergy Unknown HIVES Unverified 06/03/20 14:35 Home Medications Medication Instructions Recorded Confirmed Last Taken Type acetaminophen 325 mg tablet 650 mg PO Q4H PRN PAIN/FEVER 04/03/23 06/07/23 Unknown History acetaminophen 650 mg rectal 650 mg CO Q4H PRN PAIN/FEVER 04/03/23 06/07/23 Unknown History suppository albuterol sulfate 90 mcg/actuation 2 puff inhalation Q6H PRN 04/03/23 06/07/23 Unknown History aerosol inhaler Shortness Of Breath aluminum-mag hydroxide-simethicone 20 ml PO Q6H PRN UPSET STOMACH 04/03/23 06/07/23 Unknown History 400 mg-400 mg-40 mg/5 mL oral susp (Maalox Maximum Strength) amitriptyline 25 mg tablet 75 mg PO BEDTIME 04/03/23 06/07/23 Unknown History ammonium lactate 12 % topical cream 1 appl topical BID 04/03/23 06/07/23 Unknown History ascorbic acid (vitamin C) 500 mg 500 mg PO BID 04/03/23 06/07/23 Unknown History tablet atorvastatin 80 mg tablet 80 mg PO BEDTIME 04/03/23 06/07/23 Unknown History bisacodyl 10 mg rectal suppository 10 mg CO DAILY PRN Constipation 04/03/23 06/07/23 Unknown History bupropion HCl 150 mg tablet,12 hr 150 mg PO BID 04/03/23 06/07/23 Unknown History sustained-release cholecalciferol (vitamin D3) 1,250 1,250 mcg PO QMONTH 04/03/23 06/07/23 Unknown History mcg (50,000 unit) capsule cholestyramine (with sugar) 4 gram 1 ea PO BID 04/03/23 06/07/23 Unknown History oral powder cyanocobalamin (vitamin B-12) 500 1,000 mcg PO DAILY 04/03/23 06/07/23 Unknown History mcg tablet dapagliflozin propanediol 10 mg 10 mg PO DAILY 04/03/23 06/07/23 Unknown History tablet (Farxiga) dicyclomine 20 mg tablet 40 mg PO QID 04/03/23 06/07/23 Unknown History glycopyrrolate 9 mcg-formoterol 2 puff inhalation BID 04/03/23 06/07/23 Unknown History 4.8 mcg HFA aerosol inhaler (Bevespi Aerosphere) insulin glargine 100 unit/mL 20 unit subcut DAILY 04/03/23 06/07/23 Unknown History subcutaneous solution insulin glargine 100 unit/mL 70 unit subcut BEDTIME 04/03/23 06/07/23 Unknown History subcutaneous solution insulin lispro 100 unit/mL See Protocol subcut TIDAC 04/03/23 06/07/23 Unknown History subcutaneous cartridge (Humalog U-100 Insulin) isosorbide mononitrate 60 mg 60 mg PO DAILY 04/03/23 06/07/23 Unknown History tablet,extended release 24 hr loperamide 2 mg tablet (Imodium 2 mg PO SUMOTUTHFR Diarrhea 04/03/23 06/07/23 Unknown History A-D) magnesium hydroxide 400 mg/5 mL 30 ml PO DAILY PRN Constipation 04/03/23 06/07/23 Unknown History oral suspension (Milk of Magnesia) melatonin 3 mg tablet 6 mg PO BEDTIME 04/03/23 06/07/23 Unknown History methyl salicylate-menthol topical 1 appl topical BID PRN Pain 04/03/23 06/07/23 Unknown History cream nitroglycerin 0.4 mg sublingual 0.4 mg sublingual Q5M PRN Chest 04/03/23 06/07/23 Unknown History tablet Pain ondansetron HCl 4 mg tablet 4 mg PO Q6H PRN Nausea 04/03/23 06/07/23 Unknown History pantoprazole 40 mg tablet,delayed 40 mg PO DAILY@0630 04/03/23 06/07/23 Unknown History release sodium phosphates 19 gram-7 118 ml CO DAILY PRN Constipation 04/03/23 06/07/23 Unknown History gram/118 mL enema (Fleet Enema) tamsulosin 0.4 mg capsule 0.4 mg PO BEDTIME 04/03/23 06/07/23 Unknown History clopidogrel 75 mg tablet 75 mg PO DAILY 06/07/23 06/07/23 Unknown History famotidine 20 mg tablet 20 mg PO DAILY 06/07/23 06/07/23 Unknown History loperamide 2 mg tablet (Imodium 2 mg PO Q6H PRN Loose Stool 06/07/23 06/07/23 Unknown History A-D) loperamide 2 mg tablet (Imodium 4 mg PO WESA 06/07/23 06/07/23 Unknown History A-D) miconazole nitrate 2 % topical 1 appl topical BID 06/07/23 06/07/23 Unknown History cream (Micatin) oxycodone 10 mg tablet 10 mg PO Q3H PRN Pain (Scale Score 06/07/23 06/07/23 Unknown History 7-10) oxycodone 5 mg tablet 5 mg PO Q3H PRN Pain (Scale Score 06/07/23 06/07/23 Unknown History 4-6) potassium chloride 20 mEq 40 meq PO DAILY 06/07/23 06/07/23 Unknown History tablet,extended release Physical Exam Vital Signs: Vital Signs: Last Vital Signs Temp 97.8 F 06/07/23 13:11 Pulse 71 06/07/23 13:11 Resp 16 06/07/23 13:11 BP 145/42 H 06/07/23 13:11 Pulse Ox 100 06/07/23 13:11 O2 Del Method Room Air 06/07/23 13:11 BMI result Body Mass Index 30.1 EXAM: GENERAL: The patient is dishevelled, slight pallor, VITAL SIGNS:see workflow HEENT: Nonicteric sclerae, PERRLA, EOMI. Oropharynx clear. Moist mucous membranes. Conjunctivae appear well perfused. No thyroid mass. CHEST: Chest wall is nontender. HEART: Regular rate and rhythm with ESM 3/6 over precordium LUNGS: Clear to auscultation bilaterally. ABDOMEN: Soft, positive bowel sounds, nontender, no organomegaly.no flank tenderness SKIN: No rash, no excessive bruising, petechiae, or purpura. NEUROLOGIC: Cranial nerves II-XII intact without motor/sensory deficit. Reduced sensation in legs Psych: Appearance: grossly normal Results Labs 06/07/23 14:43 06/07/23 10:10 Labs: Short CBC 06/07/23 Range/Units 10:10 WBC 8.0 (4.8-10.8) X10*3/uL Hgb 10.0 L (14.0-18.0) g/dl Hct 32.9 L (42.0-52.0) % Plt Count 287 (160-400) X10*3/uL BMP 06/07/23 10:10 Sodium 141 Potassium 4.2 Chloride 110 H Carbon Dioxide 23 BUN 29 H Creatinine 0.98 Calcium 8.6 Liver Function 06/07/23 Range/Units 10:10 Total Bilirubin 0.3 (0.0-1.0) mg/dL Direct Bilirubin 0.1 (0.0-0.5) mg/dL AST 22 (5-37) U/L ALT 21 (0-40) U/L Alkaline Phosphatase 158 H (39-117) U/L Albumin 3.3 L (3.5-5.0) g/dL Imaging CT scan - abdomen: Attestation: I personally reviewed and interpreted this imaging study as follows: (severe atherosclerotic disease aorta -no active bleeding points seen) Assessment and Plan (1) GI bleed: Qualifiers: GI bleed type/associated pathology: unspecified gastrointestinal hemorrhage type Qualified Code(s): K92.2 - Gastrointestinal hemorrhage, unspecified Status: Acute (2) Aortic stenosis: Status: Acute (3) Coronary artery disease: Status: Acute Plan 1/ Acute on chronic anemia from GIB whilst on aspirin and plavix, wide differential incl lower GI with AVM, diverticular bleed, dieulafoy, hemorrhoids, or rapid transit upper GIB. At time of seeing he has been stable and no further bleeding, remains v high cardiac risk with severe and CAD PLAN: 1/ If remains stable recommend o/p f/u at tertiary center, if decompensates then transfer to tertiary center due to high cardiac risks 2/ discuss with cardiology about maybe stopping plavix and monotherapy with ASA 3/ COnt with PPI, can consider octreotide even fr non variceal bleeds as it causes splanchnic vasoconstriction D/w Dr Nguyễn at length Time Spent With Patient Time: Total time managing care of this patient today ____ minutes. Procedures Date of Service Date of Service: 06/07/23
[2023-06-07 14:50] LABS: Hematocrit 32.1 % (42.0-52.0); Hemoglobin 9.6 g/dl (14.0-18.0); Mean Corpuscular HGB Conc 29.9 g/dl (31.0-36.0); Mean Corpuscular Hemoglobin 22.9 pg (27.0-33.0); Mean Corpuscular Volume 76.6 fL (80.0-98.0); Mean Platelet Volume 9.9 fL (9.4-12.4); Platelet Count 275 X10*3/uL (160-400); Red Blood Count 4.19 X10*6/uL (4.60-5.80); Red Cell Distribution Width 22.8 % (11.0-16.0); White Blood Count 8.9 X10*3/uL (4.8-10.8)
--- NOTE | 2023-06-07 14:51 | PC.NURSE ---
pt found saturated in urine. cleaned up and total bed change by this RN and megan Thompson. pt resting quietly on stretcher in no apparent distress. rr even/unlabored.
--- NOTE | 2023-06-07 15:44 | PM.IMHP ---
History of Present Illness Date of Service: 06/07/23 Attending physician on admission: Jhonatan Stockton Chief Complaint: Bright red blood per rectum Pt is a 72-year-old male with a PMH significant for?with CAD, aortic stenosis, HFrEF of 25-30%, paroxysmal AFib, ischemic cardiomyopathy with stenting of the OM branch in 06/2022, NSTEMI, HTN, insulin-dependent diabetes type 2, and mood disorder who presents to the ED for evaluation of bright red blood per rectum. Patient states he has been having a small amount of blood in his stools since he has been 15 years old, though it has been much worse in the past 10 years where his stool has often been maroon-colored. Patient has been a resident of a SNF for the past 4 years and is incontinent of bowel and bladder. Says he will this morning in a pool of blood. Denies any abdominal pain or pain with defecation, though notes of sacral soreness from prolonged periods of laying in bed or sitting down. No lightheadedness or dizziness, chronic fatigue from lack of sleep. Patient also says he has chronic diarrhea that is severe in the morning but slightly better as the day progresses. Has chronic peripheral neuropathy and chronic lower leg edema with right significantly worse than left. Of note, patient presented to the ED on 04/03/2023 with similar complaints and was admitted for acute blood loss anemia due to and treated with PPI and holding Plavix and Eliquis. A colonoscopy was deferred due to high risk for anesthesia and bleeding stops, H&H stabilized, and patient did not need transfusion. Course was complicated by a chest pain secondary to NSTEMI with troponins peaking around 1300. Patient was unable to be anticoagulated and started on baby aspirin. Currently patient eyes chest pain/pressure, palpitations. No shortness of breath. Denies fever, chills, nausea, vomiting, abdominal pain. In the ED the patient is afebrile and slightly hypertensive at 145/42. Labs were significant for initial H&H 10.0/32.9 with repeat 4 hours later 9.6/32.1, alk-phos 158. Electrolytes WNL. Lactic acid WNL. Hepatic function, renal function WNL. Stool is positive for occult blood. CT?of abdomen and pelvis found no evidence of active GI bleed, diverticulosis without diverticulitis, [id number] left-sided pelvocaliectasis and dilatation of the uterus but no cause of obstruction is seen, in severe atherosclerotic disease with probably hemodynamically significant stenosis. EKG demonstrated sinus rhythm 1st degree AV block. Pt was treated with IV Protonix. Pt will be admitted to the hospital under observation for treatment and and further evaluation of lower GI bleed. Review of Systems Review of Systems: Large amount of Bright red blood per rectum Reports chronic rectal bleeding since age 15 Chronic lower leg neuropathy Chronic lower leg edema, right worse than left Chronic diarrhea Denies lightheadedness, dizziness, increased 50 No chest pain/pressure, palpitations Denies shortness of breath Yes all other systems are reviewed and are negative [facility] Medical History Chronic systolic CHF (congestive heart failure) Insulin dependent type 2 diabetes mellitus Mood disorder Essential hypertension Congestive heart failure Paroxysmal atrial fibrillation Coronary artery disease Social History Household Members: Other Housing: Assisted Living Facility Housing Other:: [facility] per pt report xlast 3 years Patient Tobacco Use Status: Former Tobacco user Quit Date: 2018 Tobacco use type: Cigarette Years Smoked: 53 Second Hand Smoke Exposure: No Substance Use Type: Marijuana Advance Directives Date on File: 04/11/23 service: Yes Meds Allergies Allergy/AdvReac Type Severity Reaction Status Date / Time coconut [COCONUT] Allergy Unknown HIVES Verified 06/08/23 05:50 pineapple [PINEAPPLE] Allergy Unknown HIVES Verified 06/08/23 05:50 Home Medications Medication Instructions Recorded Confirmed Last Taken Type acetaminophen 325 mg tablet 650 mg PO Q4H PRN PAIN/FEVER 04/03/23 06/07/23 Unknown History acetaminophen 650 mg rectal 650 mg HI Q4H PRN PAIN/FEVER 04/03/23 06/07/23 Unknown History suppository albuterol sulfate 90 mcg/actuation 2 puff inhalation Q6H PRN 04/03/23 06/07/23 Unknown History aerosol inhaler Shortness Of Breath aluminum-mag hydroxide-simethicone 20 ml PO Q6H PRN UPSET STOMACH 04/03/23 06/07/23 Unknown History 400 mg-400 mg-40 mg/5 mL oral susp (Maalox Maximum Strength) amitriptyline 25 mg tablet 75 mg PO BEDTIME 04/03/23 06/07/23 Unknown History ammonium lactate 12 % topical cream 1 appl topical BID 04/03/23 06/07/23 Unknown History ascorbic acid (vitamin C) 500 mg 500 mg PO BID 04/03/23 06/07/23 Unknown History tablet atorvastatin 80 mg tablet 80 mg PO BEDTIME 04/03/23 06/07/23 Unknown History bisacodyl 10 mg rectal suppository 10 mg HI DAILY PRN Constipation 04/03/23 06/07/23 Unknown History bupropion HCl 150 mg tablet,12 hr 150 mg PO BID 04/03/23 06/07/23 Unknown History sustained-release cholecalciferol (vitamin D3) 1,250 1,250 mcg PO QMONTH 04/03/23 06/07/23 Unknown History mcg (50,000 unit) capsule cholestyramine (with sugar) 4 gram 1 ea PO BID 04/03/23 06/07/23 Unknown History oral powder cyanocobalamin (vitamin B-12) 500 1,000 mcg PO DAILY 04/03/23 06/07/23 Unknown History mcg tablet dapagliflozin propanediol 10 mg 10 mg PO DAILY 04/03/23 06/07/23 Unknown History tablet (Farxiga) dicyclomine 20 mg tablet 40 mg PO QID 04/03/23 06/07/23 Unknown History glycopyrrolate 9 mcg-formoterol 2 puff inhalation BID 04/03/23 06/07/23 Unknown History 4.8 mcg HFA aerosol inhaler (Bevespi Aerosphere) insulin glargine 100 unit/mL 20 unit subcut DAILY 04/03/23 06/07/23 Unknown History subcutaneous solution insulin glargine 100 unit/mL 70 unit subcut BEDTIME 04/03/23 06/07/23 Unknown History subcutaneous solution insulin lispro 100 unit/mL See Protocol subcut TIDAC 04/03/23 06/07/23 Unknown History subcutaneous cartridge (Humalog U-100 Insulin) isosorbide mononitrate 60 mg 60 mg PO DAILY 04/03/23 06/07/23 Unknown History tablet,extended release 24 hr loperamide 2 mg tablet (Imodium 2 mg PO SUMOTUTHFR Diarrhea 04/03/23 06/07/23 Unknown History A-D) magnesium hydroxide 400 mg/5 mL 30 ml PO DAILY PRN Constipation 04/03/23 06/07/23 Unknown History oral suspension (Milk of Magnesia) melatonin 3 mg tablet 6 mg PO BEDTIME 04/03/23 06/07/23 Unknown History methyl salicylate-menthol topical 1 appl topical BID PRN Pain 04/03/23 06/07/23 Unknown History cream nitroglycerin 0.4 mg sublingual 0.4 mg sublingual Q5M PRN Chest 04/03/23 06/07/23 Unknown History tablet Pain ondansetron HCl 4 mg tablet 4 mg PO Q6H PRN Nausea 04/03/23 06/07/23 Unknown History pantoprazole 40 mg tablet,delayed 40 mg PO DAILY@0630 04/03/23 06/07/23 Unknown History release sodium phosphates 19 gram-7 118 ml HI DAILY PRN Constipation 04/03/23 06/07/23 Unknown History gram/118 mL enema (Fleet Enema) tamsulosin 0.4 mg capsule 0.4 mg PO BEDTIME 04/03/23 06/07/23 Unknown History clopidogrel 75 mg tablet 75 mg PO DAILY 06/07/23 06/07/23 Unknown History famotidine 20 mg tablet 20 mg PO DAILY 06/07/23 06/07/23 Unknown History loperamide 2 mg tablet (Imodium 2 mg PO Q6H PRN Loose Stool 06/07/23 06/07/23 Unknown History A-D) loperamide 2 mg tablet (Imodium 4 mg PO WESA 06/07/23 06/07/23 Unknown History A-D) miconazole nitrate 2 % topical 1 appl topical BID 06/07/23 06/07/23 Unknown History cream (Micatin) oxycodone 10 mg tablet 10 mg PO Q3H PRN Pain (Scale Score 06/07/23 06/07/23 Unknown History 7-10) oxycodone 5 mg tablet 5 mg PO Q3H PRN Pain (Scale Score 06/07/23 06/07/23 Unknown History 4-6) potassium chloride 20 mEq 40 meq PO DAILY 06/07/23 06/07/23 Unknown History tablet,extended release Physical Exam Vital Signs and Narrative: Vital Signs: Last Vital Signs Temp 97.9 F 06/07/23 14:41 Pulse 74 06/07/23 14:41 Resp 16 06/07/23 14:41 BP 138/50 L 06/07/23 14:41 Pulse Ox 99 06/07/23 14:41 O2 Del Method Room Air 06/07/23 14:41 BMI result Body Mass Index 30.1 Constitutional: Alert, in no acute distress. Mental Status: Oriented to person, place and time. Eyes: Pupils are equal, round, and reactive to light. Ear, Nose, and Throat: Oropharynx clear, mucous membranes moist. Ears and nose without deformities. Trachea midline. Respiratory: Clear to auscultation bilaterally. No wheezing, rales, or rhonchi. Cardiovascular: S1, S2, regular. 3/6 systolic murmur. Gastrointestinal: Abdomen soft, non-tender, non-distended. Normal bowel sounds. Neurologic: Cranial nerves II-XII are grossly intact bilaterally. No focal neurological deficits. Moves all extremities spontaneously. Skin: Mild sacral bruising, no open wounds noted. Musculoskeletal: No cyanosis or clubbing. Extremities: Nonpitting bilateral lower leg edema, right worse than left. Lower leg discoloration characteristic of chronic venous stasis dermatitis. Psychiatric: Normal mood and affect. Results Labs 06/08/23 04:56 06/08/23 04:56 Labs: Laboratory Results - last 24 hr 06/07/23 06/07/23 06/07/23 10:02 10:10 12:14 MCV 76.9 L MCH 23.4 L MCHC 30.4 L RDW 22.7 H Plt Count 287 MPV 10.1 Immature Gran % (Auto) 0.2 Neut % (Auto) 67.2 Lymph % (Auto) 21.4 [place] % (Auto) 6.6 Eos % (Auto) 3.7 Baso % (Auto) 0.9 Lymph # (Auto) 1.7 [place] # (Auto) 0.5 Eos # (Auto) 0.3 Baso # (Auto) 0.1 Abs Immat Gran (auto) 0.02 Absolute Neuts (auto) 5.4 Absolute Nucleated RBC 0.000 Nucleated RBC % (auto) 0.0 PT 12.3 INR 1.0 Anion Gap 12 Estim Creat Clear Calc 80.0 Estimated GFR > 60 Random Glucose 75 Lactic Acid 1.1 Calcium 8.6 Magnesium 2.1 Total Bilirubin 0.3 Direct Bilirubin 0.1 AST 22 ALT 21 Alkaline Phosphatase 158 H Total Protein 6.7 Albumin 3.3 L Lipase 4 L Stool Occult Blood POSITIVE Blood Type AB Positive Antibody Screen NEGATIVE 06/07/23 14:43 MCV 76.6 L MCH 22.9 L MCHC 29.9 L RDW 22.8 H Plt Count 275 MPV 9.9 Immature Gran % (Auto) Neut % (Auto) Lymph % (Auto) [place] % (Auto) Eos % (Auto) Baso % (Auto) Lymph # (Auto) [place] # (Auto) Eos # (Auto) Baso # (Auto) Abs Immat Gran (auto) Absolute Neuts (auto) Absolute Nucleated RBC 0.000 Nucleated RBC % (auto) 0.0 PT INR Anion Gap Estim Creat Clear Calc Estimated GFR Random Glucose Lactic Acid Calcium Magnesium Total Bilirubin Direct Bilirubin AST ALT Alkaline Phosphatase Total Protein Albumin Lipase Stool Occult Blood Blood Type Antibody Screen Imaging Radiologist's Impressions: Impressions Abdomen/Pelvis CT 06/07/23 11:32 IMPRESSION: 1. No evidence of active GI bleed. 2. Colonic diverticulosis without diverticulitis. 3. Mild to moderate left-sided pelvocaliectasis and dilatation of the ureter but no cause of obstruction is seen. 4. Severe atherosclerotic disease with probable hemodynamically significant stenoses. 5. Other incidental findings as described above. Fleischner guidelines were followed. Assessment and Plan (1) GI bleed: Qualifiers: GI bleed type/associated pathology: unspecified gastrointestinal hemorrhage type Qualified Code(s): K92.2 - Gastrointestinal hemorrhage, unspecified Status: Acute Plan Pt is a 72-year-old male with a PMH significant for?with CAD, aortic stenosis, HFrEF of 25-30%, paroxysmal AFib, ischemic cardiomyopathy with stenting of the OM branch in 06/2022, NSTEMI, HTN, insulin-dependent diabetes type 2, and mood disorder who presents to the ED for evaluation of bright red blood per rectum. Pt will be admitted to the hospital under observation for treatment and and further evaluation of lower GI bleed. Lower GI bleed Patient awoke this morning to find himself in a large pool of bright red blood; denies abdominal or rectal pain H&H initially 10.02/32.9 with repeat 4 hours later of 9.6/32.1 Protonix IV b.i.d. Hold Plavix, aspirin Cardiology consult for recommendations of when to resume Plavix and aspirin, med clearance for colonoscopy Clear liquid diet If patient continues to actively bleed will do a bleeding scan If patient does not bleed and H&H stable will discharge back to SNF tomorrow with plan to follow-up outpatient with GI for possible scoping Will check CBC later tonight, again in the morning Monitor on telemetry CAD Hold aspirin, Plavix Cardiology consult Will monitor on telemetry HFrEF Does not appear to be in acute exacerbation Continue bumetanide, Entresto Paroxysmal AFib Patient no longer on Eliquis Continue carvedilol HTN Hold antihypertensives in the setting of GI bleed, BP a little soft Insulin-dependent diabetes type 2 Sliding scale, Lantus Diabetic diet once advanced from clears Mood disorder Continue home meds Chronic back pain Continue home analgesics DNR/DNI Attending:?Dr. Nguyễn DVT Prophylaxis: Pneumatic boots d/t lower GI bleed Patient be admitted to the hospital under observation for management and evaluation lower GI bleed.. Time Spent With Patient Time: Total time managing care of this patient today ____ minutes. Quality Stroke Does the patient have a stroke diagnosis?: No VTE Prior VTE?: No VTE Risk Level:: Medical - moderate - high VTE Device Contraindication: N/A - Device Ordered VTE Drug Contraindication: Treatment Not Indicated
--- NOTE | 2023-06-07 16:10 | PHA.MEDREC ---
Pharmacy Consult ? Medication Reconciliation Pharmacy has completed the medication reconciliation. Patient came from [facility] with medication list. Janie Jarrett, TatyD
--- NOTE | 2023-06-07 18:43 | PC.NURSE ---
pt finally ok'd to have a clear liquid tray. diet put in and kitchen called. pt asked for poc to be checked. poc 54, tray in front of pt and pt starting to eat. pt a&o x4, skin color appropriate, and appears well. sts he feels fine. ultimately asymptomatic. will recheck poc. rr even/unlabored. call moore within pt reach.
[2023-06-07 18:47] LABS: Glucose, Whole Blood 54 mg/dL (60-115)
[2023-06-07] MEDS: 0.9 % Sodium Chloride 1,000 ML 999 ML IV (19:55)
[2023-06-07 20:02] LABS: Glucose, Whole Blood 154 mg/dL (60-115)
[2023-06-07] MEDS: Nitroglycerin 0.4 MG TAB.SUBL SUBLINGUAL (20:02)
--- NOTE | 2023-06-07 20:07 | PC.NURSE ---
Pt with increased vomiting and diarrhea, both with sona blood, also endorsing severe chest pain, placed on quality assurance monitor body, BS rechecked and was 154, Dr. Fernando hospitalist made aware, plan to transfer pt to ICU, okay to give pt nitro per Dr. Fernando, relief charge nurse also aware
--- NOTE | 2023-06-07 20:08 | PM.EVENT ---
Event Note Date of Service: 06/07/23 Event Note: Was told by the nurse that patient is actively vomiting blood for the last 45 minutes and pooping blood. Upon evaluation, patient is drowsy and is complaining of chest discomfort. Currently hemodynamically stable. Will order 1 L IV fluid bolus. Discussed with Dr. Triana, gastroenterology. Discussed with Dr. Knight for possible ICU transfer for closer monitoring. Time Spent With Patient Time: Total time managing care of this patient today ____ minutes.
[2023-06-07 20:36] LABS: Hematocrit 32.5 % (42.0-52.0); Hemoglobin 9.7 g/dl (14.0-18.0); Mean Corpuscular HGB Conc 29.8 g/dl (31.0-36.0); Mean Platelet Volume 10.5 fL (9.4-12.4); Platelet Count 313 X10*3/uL (160-400); Red Blood Count 4.22 X10*6/uL (4.60-5.80); Red Cell Distribution Width 22.7 % (11.0-16.0); White Blood Count 10.2 X10*3/uL (4.8-10.8)
[2023-06-07 21:05] LABS: Troponin-I High Sensitivity 191.7 ng/L (<3.5-35.0)
--- NOTE | 2023-06-07 22:50 | P.PNCC_ITS ---
Subjective Subjective Date of Service: 06/07/23 Critical Care Time (minutes): 60 Comment: Mr. Rivera is a 72-year-old male with a PMH significant for with CAD, aortic stenosis, HFrEF of 25-30%, paroxysmal AFib, ischemic cardiomyopathy with stenting of the OM branch in 06/2022, NSTEMI, HTN, insulin-dependent diabetes type 2, and mood disorder who presents to the ED for evaluation of bright red blood per rectum admitted to the hospital under observation for treatment and further evaluation of lower GI bleed. In the ED the patient was afebrile and slightly hypertensive at 145/42. Labs were significant for initial H&H 10.0/32.9 with repeat 4 hours later 9.6/32.1, alk-phos 158. Electrolytes WNL. Lactic acid WNL. Hepatic function, renal function WNL. Stool positive for occult blood. CT of abdomen and pelvis found no evidence of active GI bleed, diverticulosis without diverticulitis, [id number] left-sided pelvocaliectasis and dilatation of the? ureter but no cause of obstruction seen, severe atherosclerotic disease with probably hemodynamically significant stenosis. EKG demonstrated sinus rhythm 1st degree AV block. Pt was treated with IV Protonix. He was admitted on 04/03/2023 with similar complaints.? He was treated with a PPI? and Plavix and Eliquis were held.? Colonoscopy was deferred due to the high risk for anesthesia and bleeding stops, H&H stabilized and the patient did not need a transfusion.? Course is complicated by a chest pain secondary to NSTEMI with troponins peaking around 1300.? Anticoagulation was contraindicated but he was started on a baby aspirin. While awaiting transport to the floor, the patient began actively vomiting and stooling blood.? This episode lasted for approximately 45 minutes.? He became hypertensive with a systolic pressure in the 190s. He was transferred to the ICU for closer monitoring. Physical Exam 2 Vital Signs: Vital Signs: Last Vital Signs Temp 97.9 F 06/07/23 14:41 Pulse 99 06/07/23 20:12 Resp 20 06/07/23 20:12 BP 168/59 H 06/07/23 20:12 Pulse Ox 99 06/07/23 20:12 O2 Del Method Room Air 06/07/23 20:12 BMI result Body Mass Index 30.1 Const: General: cooperative, no acute distress and alert Nutritional Appearance: obese Orientation/consciousness: patient oriented x3 (answering appropriately.) HEENT: Head: Yes normocephalic and Yes atraumatic General nose exam: Normal external nose present (Nares patent, septum midline, sinuses nontender bilaterally.) Mouth: Normal oral and palatal mucosa present (No thrush, tongue in midline, mucosa moist.) Throat: Yes other (No erythema, no exudate.) Eyes: Pupils: Equal, round and reactive pupils present Neck: Neck: Yes supple (no thyromegaly, trachea midline.) Resp: Auscultation: clear to auscultation bilaterally (normal work of breathing, no accessory muscle use), no crackles, no rhonchi and no wheezes Cardio: Jugular venous distension: no JVD Rate: regular rate Rhythm: r egular rhythm Heart sounds: Murmur heart sound present Peripheral pulses: Peripheral pulses 2+ throughout GI: Palpation (GI): Soft to palpation (nondistended.) and nontender A uscultation: normal bowel sounds Back/Spine/Pelvis: Sacrum: ecchymosis (mild) Skin: General skin exam: no rashes or lesions noted Neuro: General: patient oriented x3 (answering appropriately.) Cranial nerves: Yes Equal, round and reactive pupils present Extrem: Other: BLE increased pigmentation characteristic of chronic venous stasis General: Yes full ROM and Yes capillary refill normal Right lower extremity: edema Details: non-pitting and 1+ Left lower extremity: edema Details: non-pitting and 1+ Psych: Affect: normal affect Attitude: cooperative Objective Data Labs 06/07/23 20:15 06/07/23 10:10 Labs: Laboratory Results - last 24 hr 06/07/23 06/07/23 06/07/23 10:02 10:10 12:14 WBC 8.0 RBC 4.28 L Hgb 10.0 L Hct 32.9 L MCV 76.9 L MCH 23.4 L MCHC 30.4 L RDW 22.7 H Plt Count 287 MPV 10.1 Immature Gran % (Auto) 0.2 Neut % (Auto) 67.2 Lymph % (Auto) 21.4 [place] % (Auto) 6.6 Eos % (Auto) 3.7 Baso % (Auto) 0.9 Lymph # (Auto) 1.7 [place] # (Auto) 0.5 Eos # (Auto) 0.3 Baso # (Auto) 0.1 Abs Immat Gran (auto) 0.02 Absolute Neuts (auto) 5.4 Absolute Nucleated RBC 0.000 Nucleated RBC % (auto) 0.0 PT 12.3 INR 1.0 Sodium 141 Potassium 4.2 Chloride 110 H Carbon Dioxide 23 Anion Gap 12 BUN 29 H Creatinine 0.98 Estim Creat Clear Calc 80.0 Estimated GFR > 60 POC Glucose Random Glucose 75 Lactic Acid 1.1 Calcium 8.6 Magnesium 2.1 Total Bilirubin 0.3 Direct Bilirubin 0.1 AST 22 ALT 21 Alkaline Phosphatase 158 H Troponin I High Sens Total Protein 6.7 Albumin 3.3 L Lipase 4 L Stool Occult Blood POSITIVE Blood Type AB Positive Antibody Screen NEGATIVE 06/07/23 06/07/23 06/07/23 14:43 18:37 19:53 WBC 8.9 RBC 4.19 L Hgb 9.6 L Hct 32.1 L MCV 76.6 L MCH 22.9 L MCHC 29.9 L RDW 22.8 H Plt Count 275 MPV 9.9 Immature Gran % (Auto) Neut % (Auto) Lymph % (Auto) [place] % (Auto) Eos % (Auto) Baso % (Auto) Lymph # (Auto) [place] # (Auto) Eos # (Auto) Baso # (Auto) Abs Immat Gran (auto) Absolute Neuts (auto) Absolute Nucleated RBC 0.000 Nucleated RBC % (auto) 0.0 PT INR Sodium Potassium Chloride Carbon Dioxide Anion Gap BUN Creatinine Estim Creat Clear Calc Estimated GFR POC Glucose 54 L* 154 H Random Glucose Lactic Acid Calcium Magnesium Total Bilirubin Direct Bilirubin AST ALT Alkaline Phosphatase Troponin I High Sens Total Protein Albumin Lipase Stool Occult Blood Blood Type Antibody Screen 06/07/23 20:15 WBC 10.2 RBC 4.22 L Hgb 9.7 L Hct 32.5 L MCV 77.0 L MCH 23.0 L MCHC 29.8 L RDW 22.7 H Plt Count 313 MPV 10.5 Immature Gran % (Auto) Neut % (Auto) Lymph % (Auto) [place] % (Auto) Eos % (Auto) Baso % (Auto) Lymph # (Auto) [place] # (Auto) Eos # (Auto) Baso # (Auto) Abs Immat Gran (auto) Absolute Neuts (auto) Absolute Nucleated RBC 0.000 Nucleated RBC % (auto) 0.0 PT INR Sodium Potassium Chloride Carbon Dioxide Anion Gap BUN Creatinine Estim Creat Clear Calc Estimated GFR POC Glucose Random Glucose Lactic Acid Calcium Magnesium Total Bilirubin Direct Bilirubin AST ALT Alkaline Phosphatase Troponin I High Sens 191.7 H* D Total Protein Albumin Lipase Stool Occult Blood Blood Type Antibody Screen Progress Note: A&P Assessment and plan (1) GI bleed: Status: Acute (2) Aortic stenosis: Status: Acute (3) Chronic systolic CHF (congestive heart failure): Status: Acute (4) Coronary artery disease: Status: Acute (5) Paroxysmal atrial fibrillation: Status: Acute (6) Congestive heart failure: Status: Acute (7) Essential hypertension: Status: Acute (8) Insulin dependent type 2 diabetes mellitus: Status: Acute (9) Mood disorder: Status: Acute Plan Assessment: 72-year-old male with a PMH of CAD, aortic stenosis, HFrEF of 25- 30%, paroxysmal AFib, ischemic cardiomyopathy with stenting of the OM branch in 06/2022, NSTEMI, HTN, insulin-dependent diabetes type 2, and mood disorder? admitted for treatment and evaluation of GI bleed. Plan: Neuro: ? no acute issues Cardiac: CAD, HFrEF, Paroxysmal AFIB, HTN. Hold aspirin, Plavix.? Consider nicardipine drip the patient continues to be hypertensive. ? Appreciate input from Cardiology. Pulmonary:? no acute issues Renal: ? no acute issues. Endo:? No acute issues.? GI: ? BRBPR, vomited blood. H&H initially 10.02/32.9 with repeat of 9.7/32.5 after episode of bloody vomiting and stool. Hold aspirin, Plavix.? Protonix IV b.i.d. Consider tranexamic acid? if patient continues to actively bleed.? Consider bleeding scan. ? Repeat H&H level in a.m.? Appreciate input from Gastroenterology. ID:? ? No acute issues. Heme/Onc:? ? As above. Psych:? No acute issues. Miscellaneous:? No acute issues. Prophylaxis: ? Pneumatic compression boots.? IV Protonix. Case discussed with Dr. Knight. Quality Stroke Does the patient have a stroke diagnosis?: No VTE Prior VTE?: No VTE Risk Level:: Medical - moderate - high VTE Device Contraindication: N/A - Device Ordered VTE Drug Contraindication: Treatment Not Indicated
[2023-06-07 23:55] LABS: Glucose, Whole Blood 141 mg/dL (60-115)
[2023-06-08] VITALS (25 sets, daily range): BP systolic 111–183; BP diastolic 31–74; PULSE 73–107; RESP 10–23; TEMP 35.9–36.9; O2SAT 94–100; BMI 33.7
--- NOTE | 2023-06-08 | ECG_ITS ---
Test Reason : righ side cp Blood Pressure : / mmHG Vent. Rate : 105 BPM Atrial Rate : 105 BPM P-R Int : 198 ms QRS Dur : 110 ms QT Int : 378 ms P-R-T Axes : 000 -18 153 degrees QTc Int : 499 ms Sinus tachycardia with frequent Premature ventricular complexes Incomplete left bundle branch block ST & T wave abnormality, consider inferolateral ischemia Abnormal ECG When compared with ECG of 07-JUN-2023 10:15, Premature ventricular complexes are now Present [place] interval has decreased Incomplete left bundle branch block is now Present Referred By: Wilbur Nguyễn Electronically Signed By:JUANJO LOZANO
[2023-06-08] MEDS: Melatonin 3 MG TABLET 6 MG PO ×2 (00:05→20:16)
[2023-06-08] MEDS: 0.9 % Sodium Chloride Flush 3 ML SYRINGE IVFLUSH ×3 (00:06→16:18)
[2023-06-08] MEDS: Amitriptyline HCl 25 MG TABLET 75 MG PO ×2 (00:06→20:16)
[2023-06-08] MEDS: Dicyclomine HCl 10 MG CAPSULE 40 MG PO ×5 (00:06→20:15)
--- NOTE | 2023-06-08 05:00 | HO.SKINPHOTO ---
Location: [facility] Category: STG II Stage: Length: Width: Depth: cm
[2023-06-08 05:17] LABS: Glucose, Whole Blood 132 mg/dL (60-115)
[2023-06-08 05:26] LABS: Hematocrit 26.6 % (42.0-52.0); Mean Corpuscular HGB Conc 30.1 g/dl (31.0-36.0); Mean Corpuscular Hemoglobin 23.2 pg (27.0-33.0); Mean Corpuscular Volume 77.1 fL (80.0-98.0); Mean Platelet Volume 10.8 fL (9.4-12.4); Platelet Count 263 X10*3/uL (160-400); Red Blood Count 3.45 X10*6/uL (4.60-5.80); Red Cell Distribution Width 22.8 % (11.0-16.0); White Blood Count 8.3 X10*3/uL (4.8-10.8)
[2023-06-08 05:42] LABS: Albumin Level 2.7 g/dL (3.5-5.0); Anion Gap 7 (12-20); Blood Urea Nitrogen 28 mg/dL (9-16); Calcium 8.1 mg/dL (8.4-10.2); Carbon Dioxide 20 mmol/L (22-29); Chloride 118 mmol/L (96-108); Creatinine Clr Calc Pharmacy 97.5; Estimated Glomerular Filt Rate > 60; Glucose Random 128 mg/dL (60-115); Iron 23 mcg/dL (45-160); Percent Iron Saturation 11 % (15-50); Potassium 3.4 mmol/L (3.3-5.1); Sodium 142 mmol/L (135-145); Total Iron Binding Capacity 218 mcg/dL (228-428); Unsaturated Iron Binding 195 ug/dL
[2023-06-08] MEDS: Albumin Human 25 % 100 ML IV (06:08)
[2023-06-08] MEDS: Pantoprazole Sodium 40 MG/10 ML VIAL IVPUSH ×2 (06:09→16:18)
--- NOTE | 2023-06-08 06:31 | PC.NURSE ---
Patient admitted to ICU from ED ~22:35 (06/07) for GI bleed c/b NSTEMI. Care assumed at this time. Oriented to room, call bed, bed mechanics and safety measures, and plan of care. A&Ox4. NSR with first degree HB and occassional PVCs on continuous tele. +pp/cms. Baseline edema to BLE. Pt has denied chest pain/palpitations for the duration of chief underwriter's care. H+H downtrending this morning to 8.0/26.6. Pt asymptomatic and VSS. Covering HOMEMAKER COMPANION notified. LSCTA/dim bases on RA with spo2 maintained. Breathing is even and unlabored without distress. Pt denies sob. Incontinent of bowel and bladder per baseline. NO BM for this chief underwriter; last reported in ED. +Flatus reported per pt. Abdomen soft, non-tender. Denies n/v. NPO with q6hr POC; lantus and ISS held for NPO per HOMEMAKER COMPANION. Po care provided. Protonix as scheduled. Attempted to place rivas cath for accurate I+O's per HOMEMAKER COMPANION though unsuccessful; patient poorly tolerated and resistance was met. Attempted to then place condom catheter per HOMEMAKER COMPANION, though it would not stay in place despite multiple attempts 2/2 patient anatomical restrictions. HOMEMAKER COMPANION aware. Incontinence wraps utilized and changed. Chronic stage II noted to coccyx (present on admission). Secure photos taken and uploaded to chart. Barrier cream applied and patient offloaded/repositioned q2hr. Bed alarm on and safety measures in place.
[2023-06-08] MEDS: buPROPion HCl XL 300 MG TAB.ER.24H PO (09:06)
--- NOTE | 2023-06-08 10:30 | P.PNCC_ITS ---
Subjective Subjective Date of Service: 06/08/23 Interval History: 72-year-old gentleman with underlying congestive heart failure, paroxysmal AFib previously on Eliquis, aortic stenosis hypertension, CAD on aspirin Plavix, diabetes mellitus, likely COPD, former 50+ pack-year smoker, quit 2018, with prior history of GI bleed, not intervened upon secondary to being deemed high cardiac risk for any procedure, admitted on 06/07/2023 with history of bright red blood per rectum , initially to general medical may. While in emergency room patient had an episode of bright red blood per rectum together with hematemesis. Patient remained hemodynamically stable, but was transferred for close monitoring to intensive care unit. No events overnight. No rebleeding. Hemoglobin is adjusting. Critical Care Time (minutes): 0 Physical Exam 2 Vital Signs: Vital Signs: Last Vital Signs Temp 98.5 F 06/08/23 08:00 Pulse 80 06/08/23 09:00 Resp 22 H 06/08/23 09:00 BP 136/43 L 06/08/23 09:00 Pulse Ox 99 06/08/23 09:00 O2 Del Method Room Air 06/08/23 09:00 BMI result Body Mass Index 33.7 Const: General: no acute distress, alert and awake Eyes: Sclerae: sclerae normal EOM: EOMs intact bilaterally Neck: Neck: Yes no lymphadenopathy, Yes trachea midline and Yes supple Resp: Effort & Inspection: normal respiratory effort and no respiratory distress Auscultation: clear to auscultation bilaterally Cardio: Rate: regular rate Rhythm: regular rhythm Heart sounds: no gallops, no murmurs and no rubs GI: Palpation (GI): Soft to palpation and Other GI palpation findings present ( Nontender) Auscultation: normal bowel sounds Extrem: General: Yes no pedal edema, No clubbing and No cyanosis Objective Data Labs 06/08/23 04:56 06/08/23 04:56 Labs: Laboratory Results - last 24 hr 06/07/23 06/07/23 06/07/23 10:10 12:14 14:43 WBC 8.9 RBC 4.19 L Hgb 9.6 L Hct 32.1 L MCV 76.6 L MCH 22.9 L MCHC 29.9 L RDW 22.8 H Plt Count 275 MPV 9.9 Absolute Nucleated RBC 0.000 Nucleated RBC % (auto) 0.0 Sodium 141 Potassium 4.2 Chloride 110 H Carbon Dioxide 23 Anion Gap 12 BUN 29 H Creatinine 0.98 Estim Creat Clear Calc 80.0 Estimated GFR > 60 POC Glucose Random Glucose 75 Lactic Acid 1.1 Calcium 8.6 Phosphorus Magnesium 2.1 Iron TIBC % Saturation Unsat Iron Binding Total Bilirubin 0.3 Direct Bilirubin 0.1 AST 22 ALT 21 Alkaline Phosphatase 158 H Troponin I High Sens Total Protein 6.7 Albumin 3.3 L Lipase 4 L Blood Type AB Positive Antibody Screen NEGATIVE 06/07/23 06/07/23 06/07/23 18:37 19:53 20:15 WBC 10.2 RBC 4.22 L Hgb 9.7 L Hct 32.5 L MCV 77.0 L MCH 23.0 L MCHC 29.8 L RDW 22.7 H Plt Count 313 MPV 10.5 Absolute Nucleated RBC 0.000 Nucleated RBC % (auto) 0.0 Sodium Potassium Chloride Carbon Dioxide Anion Gap BUN Creatinine Estim Creat Clear Calc Estimated GFR POC Glucose 54 L* 154 H Random Glucose Lactic Acid Calcium Phosphorus Magnesium Iron TIBC % Saturation Unsat Iron Binding Total Bilirubin Direct Bilirubin AST ALT Alkaline Phosphatase Troponin I High Sens 191.7 H* D Total Protein Albumin Lipase Blood Type Antibody Screen 06/07/23 06/08/23 06/08/23 23:51 04:56 05:13 WBC 8.3 RBC 3.45 L Hgb 8.0 L Hct 26.6 L MCV 77.1 L MCH 23.2 L MCHC 30.1 L RDW 22.8 H Plt Count 263 MPV 10.8 Absolute Nucleated RBC 0.000 Nucleated RBC % (auto) 0.0 Sodium 142 Potassium 3.4 Chloride 118 H Carbon Dioxide 20 L Anion Gap 7 L BUN 28 H Creatinine 0.85 Estim Creat Clear Calc 97.5 Estimated GFR > 60 POC Glucose 141 H 132 H Random Glucose 128 H Lactic Acid Calcium 8.1 L Phosphorus 3.0 Magnesium 2.0 Iron 23 L TIBC 218 L % Saturation 11 L Unsat Iron Binding 195 Total Bilirubin Direct Bilirubin AST ALT Alkaline Phosphatase Troponin I High Sens Total Protein Albumin 2.7 L Lipase Blood Type Antibody Screen Progress Note: A&P Assessment and plan (1) GI bleed: Status: Acute (2) Chronic systolic CHF (congestive heart failure): Status: Acute (3) Aortic stenosis: Status: Acute (4) Paroxysmal atrial fibrillation: Status: Acute (5) Insulin dependent type 2 diabetes mellitus: Status: Acute Plan Assessment: Plan: Neuro: No acute issues. Cardiac: No acute issues. underlying chronic systolic congestive heart failure, stenosis, paroxysmal AFib, and CAD. Pulmonary: No acute issues. Renal: No acute issues. Endo: No acute issues. GI: Acute GI bleed, likely up. Evaluated by Gastroenterology. No rebleeding overnight. ID: No acute issues Heme/Onc: Acute blood loss anemia secondary to likely upper GI bleed. Hemoglobin is stabilizing. No rebleeding. Continue to monitor hemoglobin level. Psych: No acute issues. Miscellaneous: No acute issues. Prophylaxis: Ppi Diet: NPO Quality Stroke Does the patient have a stroke diagnosis?: No VTE Prior VTE?: No VTE Risk Level:: Medical - moderate - high VTE Device Contraindication: N/A - Device Ordered VTE Drug Contraindication: Treatment Not Indicated
--- NOTE | 2023-06-08 10:46 | MHC.CM.PN ---
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 Patient is LTC from [facility]. Plan will be for patient to return there when medically stable via BLS. IMM delivered.
[2023-06-08] MEDS: ondansetron HCL 4 MG/2 ML VIAL IVPUSH ×2 (11:09→22:29)
[2023-06-08] MEDS: Magnesium Hydrox/Alum Hydrox 30 ML ORAL.SUSP PO (11:21)
[2023-06-08] MEDS: Isosorbide Mononitrate 60 MG TAB.ER.24H PO (11:29)
[2023-06-08] MEDS: fentaNYL citrate/PF 100 MCG/2 ML VIAL 50 MCG IVPUSH (11:33)
[2023-06-08 11:46] LABS: Glucose, Whole Blood 166 mg/dL (60-115)
[2023-06-08] MEDS: Nitroglycerin 0.4 MG TAB.SUBL SUBLINGUAL ×5 (11:49→20:58)
--- NOTE | 2023-06-08 11:50 | ECG_ITS ---
Test Reason : change of rthym Blood Pressure : / mmHG Vent. Rate : 097 BPM Atrial Rate : 097 BPM P-R Int : 220 ms QRS Dur : 112 ms QT Int : 368 ms P-R-T Axes : 000 -18 150 degrees QTc Int : 467 ms Sinus rhythm with 1st degree A-V block with frequent Premature ventricular complexes ST & T wave abnormality, consider lateral ischemia Incomplete left bundle branch block Prolonged QT Abnormal ECG When compared with ECG of 08-JUN-2023 11:14, [place] interval has increased Referred By: Neil Knight Electronically Signed By:JUANJO LOZANO
--- NOTE | 2023-06-08 11:51 | P.CONCA_ITS ---
History of Present Illness History of Present Illness Date of Service: 06/09/23 Requesting physician: Wilbur Nguyễn Chief complaint: GI bleed, + troponin, chest pain Narrative: 72-year-old gentleman was seen in March 2023 with GI bleed and NSTEMI. He has background history of anterior wall WI and ischemic cardiomyopathy with severe LV dysfunction as well as previous ICD placement. He had OM PCI in June [address] Whiteside at [facility]. He also has history of paroxysmal atrial fibrillation. He had GI bleed in March but his echocardiography showed severe LV dysfunction as well as concern for aortic stenosis and he was felt to be high risk for performing any endoscopy. He was conservatively treated and discharged back to his nursing facility with aspirin. Apparently was started back on Plavix there. He now presented again with significant GI bleed and found himself in a pool of blood. He was admitted to the intensive care unit and resuscitated. In the same time he also complained some chest discomfort but his biomarkers have not gone up significantly. His hemoglobin has dropped and he may get a blood transfusion soon. His aspirin Plavix has been discontinued. [facility] Past Medical History Medical History Chronic systolic CHF (congestive heart failure) Insulin dependent type 2 diabetes mellitus Mood disorder Essential hypertension Congestive heart failure Paroxysmal atrial fibrillation Coronary artery disease Social History Social History Household Members: Other Housing: Assisted Living Facility Housing Other:: [facility] custodial per pt report xlast 3 years Patient Tobacco Use Status: Former Tobacco user Quit Date: 2018 Tobacco use type: Cigarette Years Smoked: 53 Smoked in Last 30 Days: No Patient Interested in Nicotine Replacement: No Second Hand Smoke Exposure: No Use of substances other than those prescribed or required for medical reasons: Yes Substance Use Type: Marijuana Substance Use Frequency: Occasionally Last Used Substance: Unknown Currently Displaying Signs/Symptoms of Drug Intoxication Withdrawal: No Any prior treatment program specific to substance use: No Have you been hit, kicked, punched, or otherwise hurt by someone within the past year? If so, by whom?: No Do you feel safe in your current relationship?: No Current Relationship Is there a partner from a previous relationship who is making you feel unsafe now?: No Are you made to feel afraid or neglected: No Advance Directives: Yes Advance Directives on File: Yes Advance Directives Date on File: 04/11/23 Do you have thoughts of harming others: None Do you have a plan to hurt others: No Plan Recently lost weight without trying: No Eating poorly because of decreased appetite: No Nutrition Risks: No Nutritional Risk service: No Meds Allergies Allergy/AdvReac Type Severity Reaction Status Date / Time coconut [COCONUT] Allergy Unknown HIVES Verified 06/08/23 05:50 pineapple [PINEAPPLE] Allergy Unknown HIVES Verified 06/08/23 05:50 Active Medications: Current Medications Al Hydroxide/Mg Hydroxide (Magnesium Hydrox/Alum Hydrox 30 Ml Oral.Susp) 30 ml PO Q6H PRN PRN Reason: Dyspepsia Last Admin: 06/08/23 11:21 Dose: 30 ml Albuterol Sulfate (Albuterol Sulfate 90 Mcg 8 Gm Inhaler) 2 puff INHALE Q6H PRN PRN Reason: Shortness Of Breath Amitriptyline HCl (Amitriptyline Hcl 25 Mg Tablet) 75 mg PO BEDTIME [facility] Last Admin: 06/08/23 00:06 Dose: 75 mg Bupropion HCl (Bupropion Hcl Xl 300 Mg Tab.Er.24h) 300 mg PO DAILY [facility] Last Admin: 06/08/23 09:06 Dose: 300 mg Dextrose (Dextrose 50 % 25 Gm/50 Ml Syringe) 25 gm IVPUSH Q15M PRN; Protocol PRN Reason: per Hypoglycemia Standing Ord. Dicyclomine HCl (Dicyclomine Hcl 10 Mg Capsule) 40 mg PO QID [facility] Last Admin: 06/08/23 09:06 Dose: 40 mg Fentanyl (Fentanyl Citrate/Pf 100 Mcg/2 Ml Vial) 50 mcg IVPUSH Q2H PRN; Protocol PRN Reason: Pain, Moderate(Pain Scale 4-6) Last Admin: 06/08/23 11:33 Dose: 50 mcg Glucose (Glucose Gel 15 Gm Gel..Gram.) 15 gm PO Q15M PRN; Protocol PRN Reason: per Hypoglycemia Standing Ord. Insulin Glargine (Insulin Glargine,Hum.Rec.Anlog 100 Unit/Ml 10 Ml Vial) 30 unit SUBCUT BEDTIME [facility] Last Admin: 06/07/23 23:59 Dose: Not Given Insulin Human Lispro (Insulin Lispro 100 Unit/Ml 3 Ml Vial) 0 unit SUBCUT Q6H [facility]; Protocol Last Admin: 06/08/23 05:51 Dose: Not Given Isosorbide Mononitrate (Isosorbide Mononitrate 60 Mg Tab.Er.24h) 60 mg PO DAILY [facility]; Protocol Last Admin: 06/08/23 11:29 Dose: 60 mg Melatonin (Melatonin 3 Mg Tablet) 6 mg PO BEDTIME [facility] Last Admin: 06/08/23 00:05 Dose: 6 mg Nitroglycerin (Nitroglycerin 0.4 Mg Tab.Subl) 0.4 mg SUBLINGUAL Q5MX3 PRN PRN Reason: Chest Pain Ondansetron HCl (Ondansetron Hcl 4 Mg/2 Ml Vial) 4 mg IVPUSH Q8H PRN PRN Reason: Nausea and Vomiting Last Admin: 06/08/23 11:09 Dose: 4 mg Pantoprazole Sodium (Pantoprazole Sodium 40 Mg/10 Ml Vial) 40 mg IVPUSH BID@0630,1630 [facility] Last Admin: 06/08/23 06:09 Dose: 40 mg Sodium Chloride (0.9 % Sodium Chloride Flush 3 Ml Syringe) 3 ml IVFLUSH QSHIFT [facility] Last Admin: 06/08/23 09:03 Dose: 3 ml Home Medications Medication Instructions Recorded Confirmed Last Taken Type acetaminophen 325 mg tablet 650 mg PO Q4H PRN PAIN/FEVER 04/03/23 06/07/23 Unknown History acetaminophen 650 mg rectal 650 mg SC Q4H PRN PAIN/FEVER 04/03/23 06/07/23 Unknown History suppository albuterol sulfate 90 mcg/actuation 2 puff inhalation Q6H PRN 04/03/23 06/07/23 Unknown History aerosol inhaler Shortness Of Breath aluminum-mag hydroxide-simethicone 20 ml PO Q6H PRN UPSET STOMACH 04/03/23 06/07/23 Unknown History 400 mg-400 mg-40 mg/5 mL oral susp (Maalox Maximum Strength) amitriptyline 25 mg tablet 75 mg PO BEDTIME 04/03/23 06/07/23 Unknown History ammonium lactate 12 % topical cream 1 appl topical BID 04/03/23 06/07/23 Unknown History ascorbic acid (vitamin C) 500 mg 500 mg PO BID 04/03/23 06/07/23 Unknown History tablet atorvastatin 80 mg tablet 80 mg PO BEDTIME 04/03/23 06/07/23 Unknown History bisacodyl 10 mg rectal suppository 10 mg SC DAILY PRN Constipation 04/03/23 06/07/23 Unknown History bupropion HCl 150 mg tablet,12 hr 150 mg PO BID 04/03/23 06/07/23 Unknown History sustained-release cholecalciferol (vitamin D3) 1,250 1,250 mcg PO QMONTH 04/03/23 06/07/23 Unknown History mcg (50,000 unit) capsule cholestyramine (with sugar) 4 gram 1 ea PO BID 04/03/23 06/07/23 Unknown History oral powder cyanocobalamin (vitamin B-12) 500 1,000 mcg PO DAILY 04/03/23 06/07/23 Unknown History mcg tablet dapagliflozin propanediol 10 mg 10 mg PO DAILY 04/03/23 06/07/23 Unknown History tablet (Farxiga) dicyclomine 20 mg tablet 40 mg PO QID 04/03/23 06/07/23 Unknown History glycopyrrolate 9 mcg-formoterol 2 puff inhalation BID 04/03/23 06/07/23 Unknown History 4.8 mcg HFA aerosol inhaler (Bevespi Aerosphere) insulin glargine 100 unit/mL 20 unit subcut DAILY 04/03/23 06/07/23 Unknown History subcutaneous solution insulin glargine 100 unit/mL 70 unit subcut BEDTIME 04/03/23 06/07/23 Unknown History subcutaneous solution insulin lispro 100 unit/mL See Protocol subcut TIDAC 04/03/23 06/07/23 Unknown History subcutaneous cartridge (Humalog U-100 Insulin) isosorbide mononitrate 60 mg 60 mg PO DAILY 04/03/23 06/07/23 Unknown History tablet,extended release 24 hr loperamide 2 mg tablet (Imodium 2 mg PO SUMOTUTHFR Diarrhea 04/03/23 06/07/23 Unknown History A-D) magnesium hydroxide 400 mg/5 mL 30 ml PO DAILY PRN Constipation 04/03/23 06/07/23 Unknown History oral suspension (Milk of Magnesia) melatonin 3 mg tablet 6 mg PO BEDTIME 04/03/23 06/07/23 Unknown History methyl salicylate-menthol topical 1 appl topical BID PRN Pain 04/03/23 06/07/23 Unknown History cream nitroglycerin 0.4 mg sublingual 0.4 mg sublingual Q5M PRN Chest 04/03/23 06/07/23 Unknown History tablet Pain ondansetron HCl 4 mg tablet 4 mg PO Q6H PRN Nausea 04/03/23 06/07/23 Unknown History pantoprazole 40 mg tablet,delayed 40 mg PO DAILY@0630 04/03/23 06/07/23 Unknown History release sodium phosphates 19 gram-7 118 ml SC DAILY PRN Constipation 04/03/23 06/07/23 Unknown History gram/118 mL enema (Fleet Enema) tamsulosin 0.4 mg capsule 0.4 mg PO BEDTIME 04/03/23 06/07/23 Unknown History clopidogrel 75 mg tablet 75 mg PO DAILY 06/07/23 06/07/23 Unknown History famotidine 20 mg tablet 20 mg PO DAILY 06/07/23 06/07/23 Unknown History loperamide 2 mg tablet (Imodium 2 mg PO Q6H PRN Loose Stool 06/07/23 06/07/23 Unknown History A-D) loperamide 2 mg tablet (Imodium 4 mg PO WESA 06/07/23 06/07/23 Unknown History A-D) miconazole nitrate 2 % topical 1 appl topical BID 06/07/23 06/07/23 Unknown History cream (Micatin) oxycodone 10 mg tablet 10 mg PO Q3H PRN Pain (Scale Score 06/07/23 06/07/23 Unknown History 7-10) oxycodone 5 mg tablet 5 mg PO Q3H PRN Pain (Scale Score 06/07/23 06/07/23 Unknown History 4-6) potassium chloride 20 mEq 40 meq PO DAILY 06/07/23 06/07/23 Unknown History tablet,extended release Physical Exam 2 Vital Signs: Vital Signs: Last Vital Signs Temp 98.5 F 06/08/23 08:00 Pulse 107 H 06/08/23 11:44 Resp 23 H 06/08/23 11:44 BP 183/57 H 06/08/23 11:44 Pulse Ox 99 06/08/23 09:00 O2 Del Method Room Air 06/08/23 09:00 BMI result Body Mass Index 33.7 GENERAL APPEARANCE: Ill-appearing, frail. NECK: no carotid bruit, no obvious jugular venous distention. SKIN: no suspicious lesions, warm and dry. HEART: no obvious murmurs, regular rate and rhythm. LUNGS: clear to auscultation bilaterally. ABDOMEN: soft, nontender. EXTREMITIES: no edema. PERIPHERAL PULSES: equal. NEUROLOGIC: No gross deficits, AAO X 3 Objective Labs and Meds 06/09/23 05:50 06/09/23 05:50 Lab results: Laboratory Results - last 24 hr 06/07/23 06/07/23 06/07/23 12:14 14:43 18:37 WBC 8.9 RBC 4.19 L Hgb 9.6 L Hct 32.1 L MCV 76.6 L MCH 22.9 L MCHC 29.9 L RDW 22.8 H Plt Count 275 MPV 9.9 Absolute Nucleated RBC 0.000 Nucleated RBC % (auto) 0.0 Sodium Potassium Chloride Carbon Dioxide Anion Gap BUN Creatinine Estim Creat Clear Calc Estimated GFR POC Glucose 54 L* Random Glucose Calcium Phosphorus Magnesium Iron TIBC % Saturation Unsat Iron Binding Troponin I High Sens Albumin Blood Type AB Positive Antibody Screen NEGATIVE Crossmatch See Detail 06/07/23 06/07/23 06/07/23 19:53 20:15 23:51 WBC 10.2 RBC 4.22 L Hgb 9.7 L Hct 32.5 L MCV 77.0 L MCH 23.0 L MCHC 29.8 L RDW 22.7 H Plt Count 313 MPV 10.5 Absolute Nucleated RBC 0.000 Nucleated RBC % (auto) 0.0 Sodium Potassium Chloride Carbon Dioxide Anion Gap BUN Creatinine Estim Creat Clear Calc Estimated GFR POC Glucose 154 H 141 H Random Glucose Calcium Phosphorus Magnesium Iron TIBC % Saturation Unsat Iron Binding Troponin I High Sens 191.7 H* D Albumin Blood Type Antibody Screen Crossmatch 06/08/23 06/08/23 06/08/23 04:56 05:13 11:42 WBC 8.3 RBC 3.45 L Hgb 8.0 L Hct 26.6 L MCV 77.1 L MCH 23.2 L MCHC 30.1 L RDW 22.8 H Plt Count 263 MPV 10.8 Absolute Nucleated RBC 0.000 Nucleated RBC % (auto) 0.0 Sodium 142 Potassium 3.4 Chloride 118 H Carbon Dioxide 20 L Anion Gap 7 L BUN 28 H Creatinine 0.85 Estim Creat Clear Calc 97.5 Estimated GFR > 60 POC Glucose 132 H 166 H Random Glucose 128 H Calcium 8.1 L Phosphorus 3.0 Magnesium 2.0 Iron 23 L TIBC 218 L % Saturation 11 L Unsat Iron Binding 195 Troponin I High Sens Albumin 2.7 L Blood Type Antibody Screen Crossmatch Imaging Radiologist's impression: Impressions Abdomen/Pelvis CT 06/07/23 11:32 IMPRESSION: 1. No evidence of active GI bleed. 2. Colonic diverticulosis without diverticulitis. 3. Mild to moderate left-sided pelvocaliectasis and dilatation of the ureter but no cause of obstruction is seen. 4. Severe atherosclerotic disease with probable hemodynamically significant stenoses. 5. Other incidental findings as described above. Fleischner guidelines were followed. Assessment and Plan (1) GI bleed: Qualifiers: GI bleed type/associated pathology: unspecified gastrointestinal hemorrhage type Qualified Code(s): K92.2 - Gastrointestinal hemorrhage, unspecified Status: Acute (2) Elevated troponin: Status: Acute (3) Aortic stenosis: Status: Acute Plan [age] gentleman with complex cardiovascular issues including previous anterior wall WI and ischemic cardiomyopathy status post ICD placement who has been admitted to [facility] in March and again now with GI bleed. He is high risk for any procedures at this point given severe cardiomyopathy, recent NSTEMI as well as aortic valve stenosis which is moderate to severe by echocardiography performed in March 2023. I think he is high risk for any procedures. He is very frail and ill-appearing at this point. I do not think that he will get benefit from any procedures at this point. I think his aspirin Plavix should be discontinued any should be treated with blood transfusion and conservative measures. His blood pressure needs to be better controlled. We will follow along with you. Thank you for allowing me to participate in the care of your patient. Please feel free to contact me if you have any questions. Time Spent With Patient Time: Total time managing care of this patient today ____ minutes. Procedures Date of Service Date of Service: 06/09/23
--- NOTE | 2023-06-08 11:58 | MHC.CLN ---
RE: CONSULT PT WITH INCREASED NUTRITION RISK R/T PRESSURE INJURY PT IS CURRENTLY NPO WHEN DIET TO ADVANCE; RECOMMEND ADDING ENSURE MAX BID TO PROMOTE WOUND HEALING SUPP TO PROVIDE 300KCALS, 60G PROTEIN MONITOR FOR DIET ADVANCEMENT SEE ALSO FULL CLINICAL NUTRITION ASSESSMENT
[2023-06-08 12:31] LABS: Hematocrit 27.1 % (42.0-52.0); Mean Corpuscular HGB Conc 29.5 g/dl (31.0-36.0); Mean Corpuscular Hemoglobin 23.1 pg (27.0-33.0); Mean Corpuscular Volume 78.3 fL (80.0-98.0); Mean Platelet Volume 10.3 fL (9.4-12.4); Platelet Count 261 X10*3/uL (160-400); Red Blood Count 3.46 X10*6/uL (4.60-5.80); White Blood Count 8.3 X10*3/uL (4.8-10.8)
--- NOTE | 2023-06-08 14:47 | PC.NURSE ---
Shift eval 7a-2:30pm. Patient transferred to [facility] in the morning. Patient had 2 large BM's - liquid, maroon. Full care given / wilber care / linen change. Dr Knight made aware. CBC checked x 2 today - minimal change. Barrier cream applied - small 0.5x0.5cm coccyx pressure ulcer. Repos Q2H. Patient seen by Dr Agustin - advised to give patient blood. Dr Nguyễn ordered blood. Patient c/o CP, right sided, severe, non radiating, not tender to palpation at approx 11am. During this episode, BP became elevated to 186/72. Dr Nguyễn came to bedside and assessed patient. Ordered Maalox & EKG. Patient also c/o nausea. Vomited small amt green emesis. Oxygen 2 liters applied. EKG done @ 1114 - Dr Knight viewed. Zofran given @ 1109, maalox given @ 1121 with no effect. 1 unit RBC ordered by Dr Nguyễn. Dr Knight took over care - for a short time during CP. Dr Knight ordered Imdur for BP control - given @ 1129. Ordered CBC to reassess H&H & hold on giving blood. Ordered Fentanyl 50mcg IVP - given @ 1133 with little effect. 2nd EKG ordered and done - question rhythm change - Dr Knight shown. Dr Nguyễn then ordered PRN Nitro - given x3, 1149, 1155, 1201 - with very good effect - Pain went from 10 to 2. Patient resting now. BP down to 110-120 systolic - reordered entresto held per Dr Knight & Dr Nguyễn. CBC came back - no change - Dr Knight ordered to D/C RBC unit ordered. Dr Nguyễn took over care again. Ordered to advance diet to clear liquid. Bed obtained on ME911, 468- report given to Ambreen RN - Transferred at approx 1430 in bed.
--- NOTE | 2023-06-08 14:55 | PM.EVENT ---
Event Note Date of Service: 06/08/23 Event Note: 72-year-old gentleman with underlying congestive heart failure, paroxysmal AFib previously on Eliquis, aortic stenosis hypertension, CAD on aspirin Plavix, diabetes mellitus, former 50+ pack-year smoker, quit 2018, with prior history of GI bleed, not intervened secondary to being deemed high cardiac risk for any procedure, admitted on 06/07/2023 with history of bright red blood per rectum , initially to general medical may. While in emergency room patient had an episode of bright red blood per rectum together with hematemesis,he remained hemodynamically stable, but was transferred for close monitoring to intensive care unit, this a.m. patient hematocrit dropped but repeat remained stable therefore patient transferred to telemetry unit. Acute GI bleed Noted to have bright red blood per rectum and hematemesis , in ER, this morning had 2 episode of dark stools H&H initially 10.02/32.9 dropped to 05/13 Continue Protonix IV b.i.d.,Hold Plavix, aspirin Seen by Dr. Agustin due to his multiple medical problems he feels patient is not a candidate for intervention , he agrees to DC Plavix and aspirin Placed on clear liquid diet follow CBC, if noted to have drop in hematocrit or worsening bleed will consider transfer to tertiary care center Seen by Dr. Cunningham , GI follow there rec. Monitor on telemetry CAD Continue Imdur and coreg Hold aspirin, Plavix Statins on hold HFrEF Does not appear to be in acute exacerbation Continue Entresto, Bumex on hold Paroxysmal AFib Patient no longer on Eliquis Continue carvedilol HTN Continue Entresto and Coreg Insulin-dependent diabetes type 2 Continue Sliding scale,dc Lantus Diabetic diet once advanced from clears Mood disorder Continue home meds Chronic back pain home meds on hold DVT prophylaxis on compression boots DNR DNI Time Spent With Patient Time: Total time managing care of this patient today ____ minutes.
[2023-06-08 16:45] LABS: Glucose, Whole Blood 153 mg/dL (60-115)
[2023-06-08] MEDS: Insulin Lispro 100 UNIT/ML 3 ML VIAL SUBCUT (17:06)
[2023-06-08 20:25] LABS: Hematocrit 23.7 % (42.0-52.0)
[2023-06-08 20:27] LABS: Glucose, Whole Blood 198 mg/dL (60-115)
[2023-06-08] MEDS: Sacubitril/Valsartan 49/51 1 TAB TABLET PO (21:48)
[2023-06-09] VITALS (14 sets, daily range): BP systolic 123–184; BP diastolic 51–75; PULSE 75–98; RESP 18–22; TEMP -13.6–37.2; O2SAT 96–98
[2023-06-09 00:37] LABS: Glucose, Whole Blood 212 mg/dL (60-115)
[2023-06-09 06:24] LABS: Glucose, Whole Blood 164 mg/dL (60-115)
[2023-06-09] MEDS: Nitroglycerin 0.4 MG TAB.SUBL SUBLINGUAL ×2 (06:26→19:40)
[2023-06-09] MEDS: Pantoprazole Sodium 40 MG/10 ML VIAL IVPUSH ×2 (06:30→18:05)
[2023-06-09 07:10] LABS: MANUAL DIFF FLAG NO
[2023-06-09 07:15] LABS: Basophils Absolute Auto 0.1 X10*3/uL (0.0-0.2); Basophils Percent Auto 0.9 % (0-2); Eosinophils Absolute Auto 0.2 X10*3/uL (0.0-0.4); Eosinophils Percent Auto 2.3 % (0-4); Hematocrit 25.2 % (42.0-52.0); Hemoglobin 7.6 g/dl (14.0-18.0); Imm Gran Abs Auto 0.04 X10*3/uL (0.00-0.03); Imm Gran Pct Auto 0.4 % (0.0-0.4); Lymphocytes Absolute Auto 2.2 X10*3/uL (1.2-4.9); Lymphocytes Percent Auto 23.3 % (20-40); Mean Corpuscular HGB Conc 30.2 g/dl (31.0-36.0); Mean Corpuscular Hemoglobin 24.3 pg (27.0-33.0); Mean Corpuscular Volume 80.5 fL (80.0-98.0); Mean Platelet Volume 10.6 fL (9.4-12.4); Monocytes Absolute Auto 0.6 X10*3/uL (0.1-1.2); Monocytes Percent Auto 6.4 % (2-11); Neutrophils Absolute Auto 6.3 x10*3/uL (2.0-8.3); Neutrophils Percent Auto 66.7 % (45-73); Platelet Count 226 X10*3/uL (160-400); Red Blood Count 3.13 X10*6/uL (4.60-5.80); Red Cell Distribution Width 23.3 % (11.0-16.0); White Blood Count 9.4 X10*3/uL (4.8-10.8)
[2023-06-09 07:36] LABS: Anion Gap 12 (12-20); Blood Urea Nitrogen 27 mg/dL (9-16); Calcium 8.1 mg/dL (8.4-10.2); Carbon Dioxide 20 mmol/L (22-29); Chloride 112 mmol/L (96-108); Creatinine Clr Calc Pharmacy 1.6; Estimated Glomerular Filt Rate > 60; Glucose Random 198 mg/dL (60-115); Magnesium 2.2 mg/dL (1.6-2.6); Phosphorus 2.6 mg/dL (2.7-4.5); Potassium 4.2 mmol/L (3.3-5.1); Sodium 140 mmol/L (135-145)
[2023-06-09] MEDS: ondansetron HCL 4 MG/2 ML VIAL IVPUSH (08:05)
[2023-06-09] MEDS: 0.9 % Sodium Chloride Flush 3 ML SYRINGE IVFLUSH ×2 (08:08→18:06)
[2023-06-09] MEDS: carvediloL 6.25 MG TABLET PO ×2 (08:47→20:57)
[2023-06-09] MEDS: buPROPion HCl XL 300 MG TAB.ER.24H PO (08:47)
[2023-06-09] MEDS: Isosorbide Mononitrate 60 MG TAB.ER.24H PO (08:47)
[2023-06-09] MEDS: Sacubitril/Valsartan 49/51 1 TAB TABLET PO ×2 (08:47→20:57)
[2023-06-09] MEDS: Dicyclomine HCl 10 MG CAPSULE 40 MG PO ×4 (08:47→20:57)
[2023-06-09] MEDS: guaiFENesin LA 600 MG TAB.ER.12H PO ×2 (11:16→20:57)
--- NOTE | 2023-06-09 11:45 | PM.PNCARD ---
Subjective Subjective Date of Service: 06/09/23 Interval history: Seen examined at bedside. He is denying any chest discomfort or abdominal discomfort at this point. He has hemoglobin has drifted down to 7.6 and is getting 1 unit of blood today. Physical Exam Vital Signs: Last Vital Signs Temp 97.0 F 06/09/23 10:53 Pulse 98 06/09/23 10:53 Resp 22 H 06/09/23 10:53 BP 123/57 L 06/09/23 10:53 Pulse Ox 96 06/09/23 07:24 O2 Del Method Room Air 06/09/23 07:24 BMI result Body Mass Index 0.5 GENERAL APPEARANCE: Ill-appearing, frail. NECK: no carotid bruit, no obvious jugular venous distention. SKIN: no suspicious lesions, warm and dry. HEART: no obvious murmurs, regular rate and rhythm. LUNGS: clear to auscultation bilaterally. ABDOMEN: soft, nontender. EXTREMITIES: no edema. PERIPHERAL PULSES: equal. NEUROLOGIC: No gross deficits, AAO X 3 Objective Labs and Meds 06/09/23 05:50 06/09/23 05:50 Lab results: Laboratory Results - last 24 hr 06/07/23 06/08/23 06/08/23 12:14 11:42 12:11 WBC 8.3 RBC 3.46 L Hgb 8.0 L Hct 27.1 L MCV 78.3 L MCH 23.1 L MCHC 29.5 L RDW 23.0 H Plt Count 261 MPV 10.3 Immature Gran % (Auto) Neut % (Auto) Lymph % (Auto) [place] % (Auto) Eos % (Auto) Baso % (Auto) Lymph # (Auto) [place] # (Auto) Eos # (Auto) Baso # (Auto) Abs Immat Gran (auto) Absolute Neuts (auto) Absolute Nucleated RBC 0.000 Nucleated RBC % (auto) 0.0 Sodium Potassium Chloride Carbon Dioxide Anion Gap BUN Creatinine Estim Creat Clear Calc Estimated GFR POC Glucose 166 H Random Glucose Calcium Phosphorus Magnesium Albumin Blood Type AB Positive Antibody Screen NEGATIVE Crossmatch See Detail 06/08/23 06/08/23 06/08/23 16:16 20:02 20:05 WBC RBC Hgb 7.0 L* Hct 23.7 L MCV MCH MCHC RDW Plt Count MPV Immature Gran % (Auto) Neut % (Auto) Lymph % (Auto) [place] % (Auto) Eos % (Auto) Baso % (Auto) Lymph # (Auto) [place] # (Auto) Eos # (Auto) Baso # (Auto) Abs Immat Gran (auto) Absolute Neuts (auto) Absolute Nucleated RBC Nucleated RBC % (auto) Sodium Potassium Chloride Carbon Dioxide Anion Gap BUN Creatinine Estim Creat Clear Calc Estimated GFR POC Glucose 153 H 198 H Random Glucose Calcium Phosphorus Magnesium Albumin Blood Type Antibody Screen Crossmatch 06/09/23 06/09/23 06/09/23 00:33 05:50 06:19 WBC 9.4 RBC 3.13 L Hgb 7.6 L Hct 25.2 L MCV 80.5 MCH 24.3 L MCHC 30.2 L RDW 23.3 H Plt Count 226 MPV 10.6 Immature Gran % (Auto) 0.4 Neut % (Auto) 66.7 Lymph % (Auto) 23.3 [place] % (Auto) 6.4 Eos % (Auto) 2.3 Baso % (Auto) 0.9 Lymph # (Auto) 2.2 [place] # (Auto) 0.6 Eos # (Auto) 0.2 Baso # (Auto) 0.1 Abs Immat Gran (auto) 0.04 H Absolute Neuts (auto) 6.3 Absolute Nucleated RBC 0.000 Nucleated RBC % (auto) 0.0 Sodium 140 Potassium 4.2 D Chloride 112 H Carbon Dioxide 20 L Anion Gap 12 BUN 27 H Creatinine 0.92 Estim Creat Clear Calc 1.6 Estimated GFR > 60 POC Glucose 212 H 164 H Random Glucose 198 H Calcium 8.1 L Phosphorus 2.6 L Magnesium 2.2 Albumin 3.0 L Blood Type Antibody Screen Crossmatch 06/09/23 09:05 WBC RBC Hgb Hct MCV MCH MCHC RDW Plt Count MPV Immature Gran % (Auto) Neut % (Auto) Lymph % (Auto) [place] % (Auto) Eos % (Auto) Baso % (Auto) Lymph # (Auto) [place] # (Auto) Eos # (Auto) Baso # (Auto) Abs Immat Gran (auto) Absolute Neuts (auto) Absolute Nucleated RBC Nucleated RBC % (auto) Sodium Potassium Chloride Carbon Dioxide Anion Gap BUN Creatinine Estim Creat Clear Calc Estimated GFR POC Glucose Random Glucose Calcium Phosphorus Magnesium Albumin Blood Type AB Positive Antibody Screen NEGATIVE Crossmatch See Detail Progress Note: A&P Assessment and plan (1) Aortic stenosis: Status: Acute (2) Elevated troponin: Status: Acute (3) Chronic systolic CHF (congestive heart failure): Status: Acute (4) GI bleed: Status: Acute Plan 72-year-old gentleman with complex medical issues who is admitted again to hospital with GI bleed. He had a GI bleed in March 2023 in the setting of NSTEMI. At that time he was deemed high risk for any procedure then was discharged back to nursing facility. Apparently his Plavix was resumed there because he had previous PCI in June 2022 to [facility]. He has not been bleeding but has lost significant blood and hemoglobin has drifted down again. Agree with transfusion at this point. He should not get any antiplatelets or anticoagulants going forward. He has significant cardiovascular issues including previous anterior wall [place] with severe ischemic cardiomyopathy, ICD placement, recent NSTEMI and moderate to severe aortic valve stenosis at this point. He is not a candidate for any aggressive measures from cardiovascular point of view due to significant frailty and inability to tolerate any antiplatelet/anticoagulants. I think his treatment is conservative at this stage and he should get transfused couple of units of blood with some diuretics in between. His home medications should be resumed with the exception of antiplatelets and anticoagulants. If he stabilizes then he can be discharged back to his nursing facility. I think he will benefit from hospice input. Thank you for allowing me to participate in the care of your patient. Please feel free to contact me if you have any questions. Time Spent With Patient Time: Total time managing care of this patient today ____ minutes. Progress Note: Quality Stroke Does the patient have a stroke diagnosis?: No Procedures Date of Service Date of Service: 06/09/23
[2023-06-09 11:55] LABS: Glucose, Whole Blood 224 mg/dL (60-115)
[2023-06-09] MEDS: Insulin Lispro 100 UNIT/ML 3 ML VIAL SUBCUT ×3 (12:12→20:58)
--- NOTE | 2023-06-09 12:59 | HO.PM.IMPN ---
Subjective Subjective Date of Service: 06/09/23 Interval History: Seen and evaluated this morning reports 1 episode ofbloody bowel movement Hb dropped to 7.6 Doesnt want to go under anesthesia Review of Systems Review of Systems: Yes all other systems are reviewed and are negative Physical Exam Vital Signs: Vital Signs: Last Vital Signs Temp 98.1 F 06/09/23 11:47 Pulse 75 06/09/23 11:47 Resp 20 06/09/23 11:47 BP 125/60 06/09/23 11:47 Pulse Ox 98 06/09/23 11:47 O2 Del Method Room Air 06/09/23 11:47 BMI result Body Mass Index 0.5 Const: Other: Constitutional : Awake, interactive, not in distress Neck : Normal inspection, Supple Cardiovascular : RRR, no JVP, no lower extremity edema Respiratory : good bilateral air entry, scattered ronchi and congested chest Gastrointestinal: soft, lax, Normal bowel sounds, Non tender Skin : Warm, Dry Neurological : Alert & oriented x3, No focal deficit Objective Data Active Medications Al Hydroxide/Mg Hydroxide (Magnesium Hydrox/Alum Hydrox 30 Ml Oral.Susp) 30 ml PO Q6H PRN PRN Reason: Dyspepsia Last Admin: 06/08/23 11:21 Dose: 30 ml Documented By: EMILY Albuterol Sulfate (Albuterol Sulfate 90 Mcg 8 Gm Inhaler) 2 puff INHALE Q6H PRN PRN Reason: Shortness Of Breath Amitriptyline HCl (Amitriptyline Hcl 25 Mg Tablet) 75 mg PO BEDTIME [facility] Last Admin: 06/08/23 20:16 Dose: 75 mg Documented By: NATALIIA Bupropion HCl (Bupropion Hcl Xl 300 Mg Tab.Er.24h) 300 mg PO DAILY [facility] Last Admin: 06/09/23 08:47 Dose: 300 mg Documented By: KEVIN Carvedilol (Carvedilol 6.25 Mg Tablet) 6.25 mg PO BID [facility]; Protocol Last Admin: 06/09/23 08:47 Dose: 6.25 mg Documented By: KEVIN Dextrose (Dextrose 50 % 25 Gm/50 Ml Syringe) 25 gm IVPUSH Q15M PRN; Protocol PRN Reason: per Hypoglycemia Standing Ord. Dicyclomine HCl (Dicyclomine Hcl 10 Mg Capsule) 40 mg PO QID [facility] Last Admin: 06/09/23 12:13 Dose: 40 mg Documented By: KEVIN Fentanyl (Fentanyl Citrate/Pf 100 Mcg/2 Ml Vial) 50 mcg IVPUSH Q2H PRN; Protocol PRN Reason: Pain, Moderate(Pain Scale 4-6) Last Admin: 06/08/23 11:33 Dose: 50 mcg Documented By: EMILY Glucose (Glucose Gel 15 Gm Gel..Gram.) 15 gm PO Q15M PRN; Protocol PRN Reason: per Hypoglycemia Standing Ord. Guaifenesin (Guaifenesin La 600 Mg Tab.Er.12h) 600 mg PO BID [facility] Last Admin: 06/09/23 11:16 Dose: 600 mg Documented By: KEVIN Insulin Human Lispro (Insulin Lispro 100 Unit/Ml 3 Ml Vial) 0 unit SUBCUT Q6H [facility]; Protocol Last Admin: 06/09/23 12:12 Dose: 4 unit Documented By: KEVIN Isosorbide Mononitrate (Isosorbide Mononitrate 60 Mg Tab.Er.24h) 60 mg PO DAILY [facility]; Protocol Last Admin: 06/09/23 08:47 Dose: 60 mg Documented By: KEVIN Melatonin (Melatonin 3 Mg Tablet) 6 mg PO BEDTIME [facility] Last Admin: 06/08/23 20:16 Dose: 6 mg Documented By: NATALIIA Nitroglycerin (Nitroglycerin 0.4 Mg Tab.Subl) 0.4 mg SUBLINGUAL Q5MX3 PRN PRN Reason: Chest Pain Last Admin: 06/09/23 06:26 Dose: 0.4 mg Documented By: NATALIIA Nitroglycerin (Nitroglycerin 0.4 Mg Tab.Subl) 0.4 mg SUBLINGUAL Q5MX3 PRN PRN Reason: Chest Pain Ondansetron HCl (Ondansetron Hcl 4 Mg/2 Ml Vial) 4 mg IVPUSH Q8H PRN PRN Reason: Nausea and Vomiting Last Admin: 06/09/23 08:05 Dose: 4 mg Documented By: KEVIN Pantoprazole Sodium (Pantoprazole Sodium 40 Mg/10 Ml Vial) 40 mg IVPUSH BID@0630,1630 [facility] Last Admin: 06/09/23 06:30 Dose: 40 mg Documented By: NATALIIA Sacubitril/Valsartan (Sacubitril/Valsartan 49/51 1 Tab Tablet) 1 tab PO BID [facility]; Protocol Last Admin: 06/09/23 08:47 Dose: 1 tab Documented By: KEVIN Sodium Chloride (0.9 % Sodium Chloride Flush 3 Ml Syringe) 3 ml IVFLUSH QSHIFT [facility] Last Admin: 06/09/23 08:08 Dose: 3 ml Documented By: KEVIN Labs 06/09/23 05:50 06/09/23 05:50 Labs: Laboratory Results - last 24 hr 06/07/23 06/08/23 06/08/23 12:14 16:16 20:02 MCV MCH MCHC RDW Plt Count MPV Immature Gran % (Auto) Neut % (Auto) Lymph % (Auto) [place] % (Auto) Eos % (Auto) Baso % (Auto) Lymph # (Auto) [place] # (Auto) Eos # (Auto) Baso # (Auto) Abs Immat Gran (auto) Absolute Neuts (auto) Absolute Nucleated RBC Nucleated RBC % (auto) Anion Gap Estim Creat Clear Calc Estimated GFR POC Glucose 153 H 198 H Random Glucose Calcium Phosphorus Magnesium Albumin Blood Type AB Positive Antibody Screen NEGATIVE Crossmatch See Detail 06/09/23 06/09/23 06/09/23 00:33 05:50 06:19 MCV 80.5 MCH 24.3 L MCHC 30.2 L RDW 23.3 H Plt Count 226 MPV 10.6 Immature Gran % (Auto) 0.4 Neut % (Auto) 66.7 Lymph % (Auto) 23.3 [place] % (Auto) 6.4 Eos % (Auto) 2.3 Baso % (Auto) 0.9 Lymph # (Auto) 2.2 [place] # (Auto) 0.6 Eos # (Auto) 0.2 Baso # (Auto) 0.1 Abs Immat Gran (auto) 0.04 H Absolute Neuts (auto) 6.3 Absolute Nucleated RBC 0.000 Nucleated RBC % (auto) 0.0 Anion Gap 12 Estim Creat Clear Calc 1.6 Estimated GFR > 60 POC Glucose 212 H 164 H Random Glucose 198 H Calcium 8.1 L Phosphorus 2.6 L Magnesium 2.2 Albumin 3.0 L Blood Type Antibody Screen Crossmatch 06/09/23 06/09/23 09:05 11:50 MCV MCH MCHC RDW Plt Count MPV Immature Gran % (Auto) Neut % (Auto) Lymph % (Auto) [place] % (Auto) Eos % (Auto) Baso % (Auto) Lymph # (Auto) [place] # (Auto) Eos # (Auto) Baso # (Auto) Abs Immat Gran (auto) Absolute Neuts (auto) Absolute Nucleated RBC Nucleated RBC % (auto) Anion Gap Estim Creat Clear Calc Estimated GFR POC Glucose 224 H Random Glucose Calcium Phosphorus Magnesium Albumin Blood Type AB Positive Antibody Screen NEGATIVE Crossmatch See Detail Assessment and Plan (1) Aortic stenosis: Status: Acute (2) GI bleed: Status: Acute (3) Acute on chronic blood loss anemia: Status: Acute Plan Pt is a 72-year-old male with a PMH significant for?with CAD, aortic stenosis, HFrEF of 25-30%, paroxysmal AFib, ischemic cardiomyopathy with stenting of the OM branch in 06/2022, NSTEMI, HTN, insulin-dependent diabetes type 2, and mood disorder who presents to the ED for evaluation of bright red blood per rectum. Pt will be admitted to the hospital under observation for treatment and and further evaluation of lower GI bleed. Lower GI bleed H&H dropped to 7.6 and 25 this morning Protonix IV b.i.d. Hold Plavix, aspirin per cardiology recommendations on discharge Clear liquid diet to give 2 extra units of blood consider tagged RBCs if rebleeds Monitor bleed and H&H stable will discharge back to SNF tomorrow with plan to follow-up outpatient with GI for possible scoping follow CBC Monitor on telemetry CAD Hold aspirin, Plavix Cardiology input appreciated Will monitor on telemetry HFrEF Does not appear to be in acute exacerbation Continue bumetanide, Entresto Paroxysmal AFib Patient no longer on Eliquis Continue carvedilol HTN Hold antihypertensives in the setting of GI bleed, BP a little soft Insulin-dependent diabetes type 2 Sliding scale, Lantus Diabetic diet once advanced from clears Mood disorder Continue home meds Chronic back pain Continue home analgesics DNR/DNI Attending:?Dr. Nguyễn DVT Prophylaxis: Pneumatic boots d/t lower GI bleed Patient to be followed for management and evaluation lower GI bleed pending stabilization Time Spent With Patient Time: Total time managing care of this patient today ____ minutes. Quality Stroke Does the patient have a stroke diagnosis?: No VTE Prior VTE?: No VTE Risk Level:: Medical - moderate - high VTE Device Contraindication: N/A - Device Ordered VTE Drug Contraindication: Treatment Not Indicated
[2023-06-09 16:31] LABS: Hematocrit 29.1 % (42.0-52.0); Mean Corpuscular HGB Conc 30.9 g/dl (31.0-36.0); Mean Corpuscular Hemoglobin 25.9 pg (27.0-33.0); Mean Corpuscular Volume 83.6 fL (80.0-98.0); Mean Platelet Volume 9.9 fL (9.4-12.4); Platelet Count 220 X10*3/uL (160-400); Red Blood Count 3.48 X10*6/uL (4.60-5.80); Red Cell Distribution Width 22.8 % (11.0-16.0); White Blood Count 10.2 X10*3/uL (4.8-10.8)
[2023-06-09 18:02] LABS: Glucose, Whole Blood 301 mg/dL (60-115)
[2023-06-09 20:48] LABS: Glucose, Whole Blood 212 mg/dL (60-115)
[2023-06-09] MEDS: Amitriptyline HCl 25 MG TABLET 75 MG PO (20:57)
[2023-06-09] MEDS: Melatonin 3 MG TABLET 6 MG PO (20:57)
[2023-06-10 04:00] VITALS: BP 152/76; PULSE 84; RESP 20; TEMP 36.6; O2SAT 98
[2023-06-10] MEDS: Pantoprazole Sodium 40 MG/10 ML VIAL IVPUSH (05:38)
[2023-06-10 06:00] VITALS: BMI 33.6
[2023-06-10 07:22] LABS: Glucose, Whole Blood 198 mg/dL (60-115)
[2023-06-10 07:46] VITALS: BP 153/70; PULSE 71; RESP 20; TEMP 36.5; O2SAT 98
[2023-06-10 08:23] LABS: Hematocrit 32.1 % (42.0-52.0); Hemoglobin 9.8 g/dl (14.0-18.0); Mean Corpuscular HGB Conc 30.5 g/dl (31.0-36.0); Mean Corpuscular Hemoglobin 25.6 pg (27.0-33.0); Mean Corpuscular Volume 83.8 fL (80.0-98.0); Mean Platelet Volume 10.6 fL (9.4-12.4); Platelet Count 222 X10*3/uL (160-400); Red Blood Count 3.83 X10*6/uL (4.60-5.80); Red Cell Distribution Width 22.6 % (11.0-16.0); White Blood Count 8.7 X10*3/uL (4.8-10.8)
[2023-06-10] MEDS: Sacubitril/Valsartan 49/51 1 TAB TABLET PO (08:50)
[2023-06-10] MEDS: Insulin Lispro 100 UNIT/ML 3 ML VIAL SUBCUT ×2 (08:50→12:41)
[2023-06-10] MEDS: Isosorbide Mononitrate 60 MG TAB.ER.24H PO (08:50)
[2023-06-10] MEDS: buPROPion HCl XL 300 MG TAB.ER.24H PO (08:50)
[2023-06-10] MEDS: guaiFENesin LA 600 MG TAB.ER.12H PO (08:50)
[2023-06-10] MEDS: carvediloL 6.25 MG TABLET PO (08:50)
[2023-06-10] MEDS: Dicyclomine HCl 10 MG CAPSULE 40 MG PO (08:51)
[2023-06-10] MEDS: 0.9 % Sodium Chloride Flush 3 ML SYRINGE IVFLUSH ×2 (08:51)
[2023-06-10 09:06] LABS: Anion Gap 13 (12-20); Blood Urea Nitrogen 17 mg/dL (9-16); Calcium 8.4 mg/dL (8.4-10.2); Carbon Dioxide 21 mmol/L (22-29); Chloride 111 mmol/L (96-108); Creatinine Clr Calc Pharmacy 82.7; Estimated Glomerular Filt Rate > 60; Glucose Random 220 mg/dL (60-115); Sodium 141 mmol/L (135-145)
--- NOTE | 2023-06-10 11:18 | P.DS_ITS ---
DS: Providers Provider Date of Service: 06/10/23 Date of admission: 06/08/23 09:11 Primary care physician: Remi Corbett MD Consults: 06/07/23 17:28 Consult to Cardiology Routine Consulting Provider: [facility] Cardiovascular Services Reason for consultation: Pt with BRBPR, holding Plavix, clearance for scope? Consult to Gastroenterology Routine Consulting Provider: Horace Triana Reason for consultation: BRBPR DS: Diagnosis Discharge Diagnosis (1) Aortic stenosis: Status: Acute (2) GI bleed: Status: Acute (3) Acute on chronic blood loss anemia: Status: Acute (4) Elevated troponin: Status: Acute DS: Summary Hospital Course Hospital Course: Admission note HPI Pt is a 72-year-old male with a PMH significant for?with CAD, aortic stenosis, HFrEF of 25-30%, paroxysmal AFib, ischemic cardiomyopathy with stenting of the OM branch in 06/2022, NSTEMI, HTN, insulin-dependent diabetes type 2, and mood disorder who presents to the ED for evaluation of bright red blood per rectum. Patient states he has been having a small amount of blood in his stools since he has been 15 years old, though it has been much worse in the past 10 years where his stool has often been maroon-colored. Patient has been a resident of a SNF for the past 4 years and is incontinent of bowel and bladder. Says he will this morning in a pool of blood. Denies any abdominal pain or pain with defecation, though notes of sacral soreness from prolonged periods of laying in bed or sitt ing down. No lightheadedness or dizziness, chronic fatigue from lack of sleep. Patient also says he has chronic diarrhea that is severe in the morning but slightly better as the day progresses. Has chronic peripheral neuropathy and chronic lower leg edema with right significantly worse than left. Of note, patient presented to the ED on 04/03/2023 with similar complaints and was admitted for acute blood loss anemia due to and treated with PPI and holding Plavix and Eliquis. A colonoscopy was deferred due to high risk for anesthesia and bleeding stops, H&H stabilized, and patient did not need transfusion. Course was complicated by a chest pain secondary to NSTEMI with troponins peaking around 1300. Patient was unable to be anticoagulated and started on baby aspirin. Currently patient eyes chest pain/pressure, palpitations. No shortness of breath. Denies fever, chills, nausea, vomiting, abdominal pain. In the ED the patient is afebrile and slightly hypertensive at 145/42. Labs were significant for initial H&H 10.0/32.9 with repeat 4 hours later 9.6/32.1, alk- phos 158. Electrolytes WNL. Lactic acid WNL. Hepatic function, renal function WNL. Stool is positive for occult blood. CT?of abdomen and pelvis found no evidence of active GI bleed, diverticulosis without diverticulitis, [id number] left-sided pelvocaliectasis and dilatation of the uterus but no cause of obstruction is seen, in severe atherosclerotic disease with probably hemodynamically significant stenosis. EKG demonstrated sinus rhythm 1st degree AV block. Pt was treated with IV Protonix. Pt will be admitted to the hospital under observation for treatment and and further evaluation of lower GI bleed. Hospital course # Acute on chronic blood loss anemia secondary to Lower GI bleed as Hb dropped to 7 and was monitored in ICU for bloody bowel movements requrining multiple blood unit transfusions (total of 4) with good response as last Hb of 9.8. Treated with Protonix IV b.i.d, Holding Plavix, aspirin during hospital stay and after discharge per cardiology recommendations. Tolerated advanced diet well. no further bloody bowel motions. Evaluated by GI who could not do upper or lower endoscopies as the patient is high risk for surgery given his hx of severe . Discussed with the patient the need to transfer to tertiary center for further cardiac eval and possible GI procedure under GA but he refused stating that he wants to live and doesnt want to take the risk of going under anesthasia. Advanced directive also discussed, he wants to be DNR\DNI right now but still want to be treated and receive blood transfusions if needed but if no chance of improvement he would prefer comfort measures at that point. 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 He is not a candidate for any aggressive measures from cardiovascular point of view due to significant frailty and inability to tolerate any antiplatelet/anticoagulants. Hold aspirin, Plavix per Cardiology at time of discharge. patient understand the risk associated with that and the plan to follow with his harvesting contractor as outpatient. # Type II diabetes Blood sugar fairly controlled with diet. did not take lantus while inpatient. can restart lower dose of Lantus 40 at bedtime (from 70 originally) and hold morning dose of 20 for now. repeat sugar levels for the next 3 days at least 3-4 times a day and restart as tolerated. Hold Aspirin and Plavix until you follow up with your harvesting contractor at [facility] if any plans for treatment of severe aortic stenosis Start Omeprazole daily Follow with PCP to arrange for outpatient blood transfusion as needed To repeat blood test next week Time Spent with Patient Time attestation: Total time managing care of this patient today ____ minutes. Discharge coordination time: Greater than 30 minutes Quality: Safe Use of Opioids Does Pt have an Active Cancer Diagnosis on the Problem List?: No Quality: Stroke Does the patient have a stroke diagnosis?: No Physical Exam Vital Signs: Vital Signs: Last Vital Signs Temp 97.7 F 06/10/23 07:46 Pulse 71 06/10/23 07:46 Resp 20 06/10/23 07:46 BP 153/70 H 06/10/23 07:46 Pulse Ox 98 06/10/23 07:46 O2 Del Method Room Air 06/10/23 07:46 BMI result Body Mass Index 33.6 Const: Other: Constitutional : Awake, interactive, not in distress Neck : Normal inspection, Supple Cardiovascular : RRR, no JVP, no lower extremity edema Respiratory : good bilateral air entry, scattered ronchi Gastrointestinal: soft, lax, Normal bowel sounds, Non tender Skin : Warm, Dry Neurological : Alert & oriented x3, No focal deficit DS: Data Data Completed and Pending Completed studies during hospitalization [Text1]: Procedures Transfusion of Nonautologous Red Blood Cells into Peripheral Vein, Percutaneous Approach (04/03/23) Labs on day of discharge: Laboratory Results - last 24 hr 06/09/23 06/09/23 06/09/23 09:05 11:50 16:20 WBC 10.2 RBC 3.48 L Hgb 9.0 L Hct 29.1 L MCV 83.6 MCH 25.9 L MCHC 30.9 L RDW 22.8 H Plt Count 220 MPV 9.9 Absolute Nucleated RBC 0.000 Nucleated RBC % (auto) 0.0 Sodium Potassium Chloride Carbon Dioxide Anion Gap BUN Creatinine Estim Creat Clear Calc Estimated GFR POC Glucose 224 H Random Glucose Calcium Hold Green Top See Note Blood Type AB Positive Antibody Screen NEGATIVE Crossmatch See Detail 06/09/23 06/09/23 06/10/23 17:58 20:44 06:26 WBC 8.7 RBC 3.83 L Hgb 9.8 L Hct 32.1 L MCV 83.8 MCH 25.6 L MCHC 30.5 L RDW 22.6 H Plt Count 222 MPV 10.6 Absolute Nucleated RBC 0.000 Nucleated RBC % (auto) 0.0 Sodium 141 Potassium 4.0 Chloride 111 H Carbon Dioxide 21 L Anion Gap 13 BUN 17 H Creatinine 1.00 Estim Creat Clear Calc 82.7 Estimated GFR > 60 POC Glucose 301 H 212 H Random Glucose 220 H Calcium 8.4 Hold Green Top Blood Type Antibody Screen Crossmatch 06/10/23 07:09 WBC RBC Hgb Hct MCV MCH MCHC RDW Plt Count MPV Absolute Nucleated RBC Nucleated RBC % (auto) Sodium Potassium Chloride Carbon Dioxide Anion Gap BUN Creatinine Estim Creat Clear Calc Estimated GFR POC Glucose 198 H Random Glucose Calcium Hold Green Top Blood Type Antibody Screen Crossmatch Imaging CT scan - abdomen: Radiologist's impression: ITS Impressions Abdomen/Pelvis CT 06/07/23 11:32 IMPRESSION: 1. No evidence of active GI bleed. 2. Colonic diverticulosis without diverticulitis. 3. Mild to moderate left-sided pelvocaliectasis and dilatation of the ureter but no cause of obstruction is seen. 4. Severe atherosclerotic disease with probable hemodynamically significant stenoses. 5. Other incidental findings as described above. Fleischner guidelines were followed. Discharge Plan Discharge Anticipated Discharge Date/Time: 06/10/23 10:42 Patient Disposition: Home, Self-Care Discharge Diagnosis: Gastrointestinal bleeding symptomatic anemia Referrals: Remi Corbett MD [Primary Care Provider] - 1 Week Discharge Medications: New omeprazole 40 mg capsule,delayed release(DR/EC) 40 mg PO DAILY Qty: 90 0RF Continued atorvastatin 80 mg tablet 80 mg PO BEDTIME loperamide [Imodium A-D] 2 mg Tablet 2 mg PO SUMOTUTHFR melatonin 3 mg Tablet 6 mg PO BEDTIME isosorbide mononitrate 60 mg tablet extended release 24 hr 60 mg PO DAILY amitriptyline 25 mg tablet 75 mg PO BEDTIME magnesium hydroxide [Milk of Magnesia] 400 mg/5 mL Suspension 30 ml PO DAILY PRN (Reason: Constipation) cyanocobalamin (vitamin B-12) 500 mcg Tablet 1,000 mcg PO DAILY dicyclomine 20 mg tablet 40 mg PO QID bisacodyl 10 mg Suppository 10 mg LA DAILY PRN (Reason: Constipation) Fleet Enema 19-7 gram/118 mL Enema 118 ml LA DAILY PRN (Reason: Constipation) ammonium lactate 12 % cream 1 appl topical BID Rx Instructions: APPLY TO BILATERAL LEGS alum-mag hydroxide-simeth [Maalox Maximum Strength] 400-400-40 mg/5 mL Suspension 20 ml PO Q6H PRN (Reason: UPSET STOMACH) Humalog U-100 Insulin 100 unit/mL Cartridge See Protocol SUBCUT TIDA Protocol: Insulin Correction Scale Less than or equal to 110 ---- Give (units): 0 111 to 150 Give (units): 0 151 to 200 Give (units): 2 201 to 250 Give (units): 4 251 to 300 Give (units): 6 301 to 350 Give (units): 8 Greater than 350 Give (units): 10 Call MD if Blood Glucose > : 350 methyl salicylate-menthol Cream 1 appl TOPICAL BID PRN (Reason: Pain) cholestyramine (with sugar) 4 gram powder 1 ea PO BID cholecalciferol (vitamin D3) 1,250 mcg (50,000 unit) Capsule 1,250 mcg PO QMONTH Rx Instructions: TAKE ON THE OF EACH MONTH Farxiga 10 mg tablet 10 mg PO DAILY Bevespi Aerosphere 9-4.8 mcg HFA aerosol inhaler 2 puff inhalation BID bupropion HCl 150 mg tablet sustained-release 12 hr 150 mg PO BID acetaminophen 325 mg Tablet 650 mg PO Q4H PRN (Reason: PAIN/FEVER) acetaminophen 650 mg Suppository 650 mg LA Q4H PRN (Reason: PAIN/FEVER) ondansetron HCl 4 mg Tablet 4 mg PO Q6H PRN (Reason: Nausea) ascorbic acid (vitamin C) 500 mg Tablet 500 mg PO BID tamsulosin 0.4 mg capsule 0.4 mg PO BEDTIME pantoprazole 40 mg tablet,delayed release (DR/EC) 40 mg PO DAILY@0630 nitroglycerin 0.4 mg tablet, sublingual 0.4 mg sublingual Q5M PRN (Reason: Chest Pain) albuterol sulfate 90 mcg/actuation HFA aerosol inhaler 2 puff inhalation Q6H PRN (Reason: Shortness Of Breath) carvedilol 6.25 mg Tablet 6.25 mg PO BID Qty: 0 0RF Protocol: Hold for SBP/HR < HOLD for SBP < : 90 HOLD for HR < : 60 Entresto 49-51 mg Tablet 1 tab PO BID Qty: 0 0RF Protocol: Hold for SBP< HOLD for SBP < : 90 bumetanide 1 mg Tablet 1 mg PO BID@0800,1700 Qty: 0 0RF Protocol: Hold for SBP< HOLD for SBP < : 90 miconazole nitrate [Micatin] 2 % Cream 1 appl TOPICAL BID Rx Instructions: X 14 DAYS, FINISH 06/12/2023 loperamide [Imodium A-D] 2 mg Tablet 2 mg PO Q6H PRN (Reason: Loose Stool) loperamide [Imodium A-D] 2 mg Tablet [facility] famot[facility] 20 mg Tablet 20 mg PO DAILY oxycodone 10 mg Tablet 10 mg PO Q3H PRN (Reason: Pain (Scale Score 7-10)) potassium chloride 20 mEq Tablet Extended Release 40 meq PO DAILY oxycodone 5 mg tablet 5 mg PO Q3H PRN (Reason: Pain (Scale Score 4-6)) Rx Instructions: Partial Fill upon patient request. Changed insulin glargine 100 unit/mL Solution 50 unit SUBCUT BEDTIME Qty: 15 0RF Held insulin glargine 100 unit/mL Solution 20 unit SUBCUT DAILY Hold Instructions: Hold until 3 days readings are available before restarting if no low sugar level aspirin 81 mg Tablet,Delayed Release (Dr/Ec) 81 mg PO DAILY Qty: 30 0RF Hold Instructions: Until you discuss with [place] [facility] [place]op[place]rel 75 mg Tablet 75 mg PO DAILY Hold Instructions: Until you discuss with your harvesting contractor [place] [facility] [place]charge Orders: Discharge Order (Routine); Ordered 06/10/23 Ordered By: Kelvin White Diet: Diabetic diet Activity on Discharge: As tolerated Stand Alone Forms: Patient Portal Discharge page Other Ambulatory Orders: Complete Blood Count Auto Diff (Routine) Timeframe: 4 Days Facility: [facility] - Location: Laboratory Ordered By: Kelvin White Care Plan Goals: Read below Health Concerns: Read below Plan of Treatment: Read below Assessment: Hold Aspirin and Plavix until you follow up with your harvesting contractor at [facility] if any plans for treatment of severe aortic stenosis Start Omeprazole daily Follow with PCP to arrange for outpatient blood transfusion as needed To repeat blood test next week
[2023-06-10 12:00] VITALS: BP 151/67; PULSE 69; RESP 20; TEMP 36.2; O2SAT 97
[2023-06-10 12:00] LABS: Glucose, Whole Blood 298 mg/dL (60-115)
--- NOTE | 2023-06-10 12:06 | MHC.CM.PN ---
Addendum entered by Evy Mensah RN 06/10/23 12:50: CM SPOKE TO NURSE ON PT'S UNIT WHO IS AGREEABLE TO 2PM TRANSPORT Addendum entered by Evy Mensah RN 06/10/23 12:22: BLS TRANSPORT SET UP FOR 2PM Original Note: PT MEDICALLY CLEARED FOR D/C BACK TO LTC AT [facility], CM ATTEMPTED TO CONTACT PT'S SON/HCP BRIANNA AT 12:02PM AT NUMBER ON FILE, DETAILED MESSAGE LEFT, [facility] FOR BLS TRANSPORT.
== END 2023-06-10 13:49 | disposition home or self-care (01) | DRG 378 ==
LOC: HO.ED 14:59 → HO.EDOVER 17:38 → HO.ICU 21:26 → HO.IMC 06-08 12:57
PROVIDERS: Hospitalist; Internal Medicine Pulmonary Disease; Student in an Organized Health Care Education/Training Program; Admitting Provider Student in an Organized Health Care Education/Training Program; Emergency Provider Emergency Medicine; PCP Family Medicine; Visit Provider Student in an Organized Health Care Education/Training Program
DX: K92.2 Gastrointestinal hemorrhage, unspecified (principal); D62 Acute posthemorrhagic anemia; I50.22 Chronic systolic (congestive) heart failure; I25.10 Atherosclerotic heart disease of native coronary artery without angina pectoris; Z66 Do not resuscitate; I35.0 Nonrheumatic aortic (valve) stenosis; I11.0 Hypertensive heart disease with heart failure; F39 Unspecified mood [affective] disorder; E78.2 Mixed hyperlipidemia; I48.0 Paroxysmal atrial fibrillation; I25.2 Old myocardial infarction; Z86.73 Personal history of transient ischemic attack (TIA), and cerebral infarction without residual deficits; Z87.891 Personal history of nicotine dependence; Z79.4 Long term (current) use of insulin; Z79.02 Long term (current) use of antithrombotics/antiplatelets; Z79.82 Long term (current) use of aspirin; Z79.899 Other long term (current) drug therapy
CPT/HCPCS: 36415; 74178; 80048; 80076; 82040; 82272; 82947; 83540; 83605; 83690; 83735; 84100; 84484; 85014; 85018; 85025; 85027; 85610; 86850; 86900; 86901; 86923; 92950; 93005; 99223; 99285; C1758; J2405; J3010; P9016; P9047; Q9967

== ENCOUNTER → 2023-06-07 17:17 | Outpatient (BNV) | payer MEDICARE, MEDICAID, SELFPAY | PROVIDERS: Admitting Provider Student in an Organized Health Care Education/Training Program; Emergency Provider Emergency Medicine; PCP Family Medicine; Visit Provider Nurse Practitioner Family | DX: K92.2 Gastrointestinal hemorrhage, unspecified (principal); I48.0 Paroxysmal atrial fibrillation; I50.22 Chronic systolic (congestive) heart failure; I35.0 Nonrheumatic aortic (valve) stenosis; I25.10 Atherosclerotic heart disease of native coronary artery without angina pectoris; I50.9 Heart failure, unspecified; I10 Essential (primary) hypertension; E11.9 Type 2 diabetes mellitus without complications; Z79.4 Long term (current) use of insulin; F39 Unspecified mood [affective] disorder | CPT/HCPCS: 99291 ==

== ENCOUNTER → 2023-06-07 17:17 | Outpatient (BNV) | payer MEDICARE, MEDICAID, SELFPAY | PROVIDERS: Admitting Provider Student in an Organized Health Care Education/Training Program; Emergency Provider Emergency Medicine; PCP Family Medicine; Visit Provider Student in an Organized Health Care Education/Training Program | DX: I35.0 Nonrheumatic aortic (valve) stenosis (principal); K92.2 Gastrointestinal hemorrhage, unspecified; D62 Acute posthemorrhagic anemia; R77.8 Other specified abnormalities of plasma proteins | CPT/HCPCS: 99222; 99232; 99239; 99499 ==

== ENCOUNTER → 2023-06-07 17:17 | Outpatient (BNV) | payer MEDICARE, MEDICAID, SELFPAY | PROVIDERS: Admitting Provider Student in an Organized Health Care Education/Training Program; Emergency Provider Emergency Medicine; PCP Family Medicine; Visit Provider Internal Medicine Gastroenterology | DX: K92.2 Gastrointestinal hemorrhage, unspecified (principal); I35.0 Nonrheumatic aortic (valve) stenosis; I25.10 Atherosclerotic heart disease of native coronary artery without angina pectoris | CPT/HCPCS: 99223 ==

== ENCOUNTER → 2023-06-08 09:11 | Outpatient (BNV) | payer MEDICARE, MEDICAID, SELFPAY | PROVIDERS: Admitting Provider Student in an Organized Health Care Education/Training Program; Emergency Provider Emergency Medicine; PCP Family Medicine; Visit Provider Internal Medicine Pulmonary Disease | DX: K92.2 Gastrointestinal hemorrhage, unspecified (principal); I50.22 Chronic systolic (congestive) heart failure; I35.0 Nonrheumatic aortic (valve) stenosis; I48.0 Paroxysmal atrial fibrillation; E11.9 Type 2 diabetes mellitus without complications; Z79.4 Long term (current) use of insulin | CPT/HCPCS: 99233 ==

== ENCOUNTER → 2023-06-08 09:11 | Outpatient (BNV) | payer MEDICARE, MEDICAID, SELFPAY | PROVIDERS: Admitting Provider Student in an Organized Health Care Education/Training Program; Emergency Provider Emergency Medicine; PCP Family Medicine; Visit Provider Internal Medicine Cardiovascular Disease | DX: I35.0 Nonrheumatic aortic (valve) stenosis (principal); R77.8 Other specified abnormalities of plasma proteins; I50.22 Chronic systolic (congestive) heart failure; K92.2 Gastrointestinal hemorrhage, unspecified | CPT/HCPCS: 99223; 99232 ==